=== PATIENT | male | born 1950 | race Caucasian/White ===

== ENCOUNTER 2020-07-18 20:00 | Emergency (ER) | payer MEDICARE, MEDICAID, SELFPAY ==
--- NOTE | 2020-07-18 | XR_ITS ---
EXAMINATION: XR CHEST CLINICAL INFORMATION: Question aspiration COMPARISON: Chest x-ray 01/30/[address] 01/05/2018 TECHNIQUE: Frontal view of the chest was obtained. FINDINGS: Retrocardiac opacity with blunting of the left costophrenic angle. There is good aeration of the right hemithorax. No right-sided pleural effusion. No pneumothorax bilaterally. XR/XR chest 1V IMPRESSION: Left basilar findings concerning for pleural effusion with overlying airspace disease. Clinical correlation recommended.
[2020-07-18 20:15] VITALS: BP 156/72; PULSE 82; RESP 16; TEMP 36.6; O2SAT 93; BMI 43.3
[2020-07-18 21:07] LABS: MANUAL DIFF FLAG NO
[2020-07-18 21:08] LABS: Basophils Absolute Auto 0.1 X10*3/uL (0.0-0.2); Basophils Percent Auto 1.2 % (0-2); Eosinophils Absolute Auto 0.2 X10*3/uL (0.0-0.4); Hematocrit 46.2 % (42-52); Imm Gran Abs Auto 0.03 X10*3/uL (0.00-0.03); Imm Gran Pct Auto 0.4 % (0.0-0.4); Lymphocytes Absolute Auto 1.3 X10*3/uL (1.2-4.9); Lymphocytes Percent Auto 17.4 % (20-40); Mean Corpuscular HGB Conc 32.5 g/dl (31.0-36.0); Mean Corpuscular Hemoglobin 29.3 pg (27.0-33.0); Mean Corpuscular Volume 90.2 fL (80-98); Monocytes Absolute Auto 0.8 X10*3/uL (0.1-1.2); Monocytes Percent Auto 10.6 % (2-11); Neutrophils Absolute Auto 4.9 X10*3/uL (2.0-8.3); Neutrophils Percent Auto 67.4 % (45-73); Platelet Count 260 X10*3/uL (160-400); Red Blood Count 5.12 X10*6/uL (4.60-5.80); Red Cell Distribution Width 13.8 % (11.0-16.0); White Blood Count 7.3 X10*3/uL (4.8-10.8)
[2020-07-18 21:50] LABS: Alanine Aminotransferase 29 U/L (0-40); Albumin Level 4.3 g/dL (3.5-5.0); Alkaline Phosphatase 43 U/L (39-117); Anion Gap 16 (12-20); Aspartate Amino Transferase 26 U/L (5-37); Bilirubin Total 0.4 mg/dL (0.0-1.0); Blood Urea Nitrogen 16 mg/dL (9-16); Calcium 9.9 mg/dL (8.4-10.2); Carbon Dioxide 25 mmol/L (22-29); Chloride 105 mmol/L (96-108); Creatinine Clr Calc Pharmacy 123.3; Estimated Glomerular Filt Rate > 60; Glucose Random 104 mg/dL (60-115); Potassium 4.2 mmol/l (3.3-5.1); Sodium 142 mmol/L (135-145); Total Protein 7.1 g/dL (6.5-8.0)
--- NOTE | 2020-07-18 21:53 | ED.GENADULT ---
HPI - General Adult General Chief complaint: General Medical Stated complaint: ?ASPIRATION Time Seen by Provider: 07/18/20 21:42 Source: patient and EMS Mode of arrival: EMS Limitations: other (Dementia) History of Present Illness HPI narrative: Patient is coming from [facility] for possible aspiration. According to the patient's nurse, patient was eating, he choked and started coughing violently then itself resolved. The nurse became concerned and called 911. Patient is unable to give any history. Patient states he feels well complaint: Possible aspiration Related Data Previous Rx's Medication Instructions Recorded azithromycin 250 mg PO DAILY 4 Days #4 tab 07/18/20 Allergies Allergy/AdvReac Type Severity Reaction Status Date / Time No Known Allergies Allergy Verified 07/18/20 20:20 [No Known Allergies*] Review of Systems Review of Systems: Yes Unobtainable due to mental condition PMFSH Past Medical History Medical History Asthma Behavior disorder Cataract Dementia Diabetes Dysphagia Emphysema lung ETOH abuse Gastroenteritis Hernia Hyperlipemia Social History Social History Alcohol intake: never Smoked in Last 30 Days: No Use of substances other than those prescribed or required for medical reasons: No Advance Directives: No Advance Directives Information Provided: Yes Physical Exam Vital Signs: Vital Signs: Last Vital Signs Temp 97.0 F 07/18/20 22:00 Pulse 62 07/18/20 22:00 Resp 16 07/18/20 22:00 BP 141/67 H 07/18/20 22:00 Pulse Ox 93 07/18/20 22:00 Body Mass Index 43.3 Appearance: Alert. No acute distress Eyes: Pupils equal, round and reactive to light. ENT: Pharynx normal. Neck: Normal inspection. Neck supple. No lymph nodes noted. No crepitus CVS: Normal heart rate and rhythm. Pulses normal. Normal S1 and S2 Respiratory: No respiratory distress. Breath sounds normal. No Wheezing. No rales Abdomen: Soft and nontender. No rigidity. No distention. good BS x4 Skin: Skin warm and dry. Normal skin color. Normal skin turgor. Extremities: No lower extremity edema. No lower extremity edema. No Lacerations. No Rash Neuro: No motor deficit. Moving all extermities. Cranial nerves 2-12 grossly intact Course Course Course Narrative: It was discussed with the patient's nurse at [facility] that it is possible that he may have aspirated. At this time patient has no signs of distress. Patient will be treated empirically for aspiration pneumonia Medical Decision Making Lab Data Result diagrams: 07/18/20 21:00 07/18/20 21:00 Labs: Lab Results 07/18/20 07/18/20 Range/Units 21:00 21:00 WBC 7.3 (4.8-10.8) X10*3/uL RBC 5.12 (4.60-5.80) X10*6/uL Hgb 15.0 (14.0-18.0) g/dl Hct 46.2 (42-52) % MCV 90.2 (80-98) fL MCH 29.3 (27.0-33.0) pg MCHC 32.5 (31.0-36.0) g/dl RDW 13.8 (11.0-16.0) % Plt Count 260 (160-400) X10*3/uL MPV 10.0 (9.4-12.4) fL Immature Gran % (Auto) 0.4 (0.0-0.4) % Neut % (Auto) 67.4 (45-73) % Lymph % (Auto) 17.4 L (20-40) % Ware % (Auto) 10.6 (2-11) % Eos % (Auto) 3.0 (0-4) % Baso % (Auto) 1.2 (0-2) % Lymph # (Auto) 1.3 (1.2-4.9) X10*3/uL Ware # (Auto) 0.8 (0.1-1.2) X10*3/uL Eos # (Auto) 0.2 (0.0-0.4) X10*3/uL Baso # (Auto) 0.1 (0.0-0.2) X10*3/uL Abs Immat Gran (auto) 0.03 (0.00-0.03) X10*3/uL Absolute Neuts (auto) 4.9 (2.0-8.3) X10*3/uL Absolute Nucleated RBC 0.000 (0.0-0.012) X10*3/uL Nucleated RBC % (auto) 0.0 (0.0-0.2) /100WBC Sodium 142 (135-145) mmol/L Potassium 4.2 (3.3-5.1) mmol/l Chloride 105 (96-108) mmol/L Carbon Dioxide 25 (22-29) mmol/L Anion Gap 16 (12-20) BUN 16 (9-16) mg/dL Creatinine 0.86 (0.5-1.4) mg/dL Estim Creat Clear Calc 123.3 Estimated GFR > 60 Random Glucose 104 (60-115) mg/dL Calcium 9.9 (8.4-10.2) mg/dL Total Bilirubin 0.4 (0.0-1.0) mg/dL AST 26 (5-37) U/L ALT 29 (0-40) U/L Alkaline Phosphatase 43 (39-117) U/L Total Protein 7.1 (6.5-8.0) g/dL Albumin 4.3 (3.5-5.0) g/dL Discharge Plan Discharge Clinical Impression: Aspiration pneumonia Qualifiers: Aspiration pneumonia type: unspecified Laterality: unspecified laterality Lung location: unspecified part of lung Qualified Code(s): J69.0 - Pneumonitis due to inhalation of food and vomit Patient Disposition: Home, Self-Care Instructions: Aspiration Pneumonia (DC) Additional Instructions: Please follow-up with your primary care physician tomorrow. If you have any worsening or new symptoms, please return to the emergency room or call 911 Prescriptions: New azithromycin 250 mg tablet 250 mg PO DAILY 4 Days Qty: 4 RF: 0
[2020-07-18 22:00] VITALS: BP 141/67; PULSE 62; RESP 16; TEMP 36.1; O2SAT 93
--- NOTE | 2020-07-18 22:21 | PC.NURSE ---
Report given to [facility] nurse. plan to d/c.
[2020-07-18] MEDS: Azithromycin 500 MG TABLET PO (22:49)
[2020-07-19 00:40] VITALS: BP 134/56; PULSE 60; RESP 18; O2SAT 100
== END 2020-07-19 00:42 | disposition home or self-care (01) ==
PROVIDERS: Emergency Provider Emergency Medicine; PCP Hospitalist
DX: J69.0 Pneumonitis due to inhalation of food and vomit (principal)
CPT/HCPCS: 36415; 71045; 80053; 85025; 99283; 99284

== ENCOUNTER 2020-07-25 19:37 | Emergency (ER) | payer MEDICARE, MEDICAID, SELFPAY ==
[2020-07-25 19:50] VITALS: BP 142/72; PULSE 79; RESP 18; TEMP 36.9; O2SAT 90; BMI 31.4
--- NOTE | 2020-07-25 20:03 | ED_ITS ---
HPI - General Adult General Chief complaint: General Medical Stated complaint: OXYGEN DESATURATION Time Seen by Provider: 07/25/20 21:25 Source: EMS Mode of arrival: EMS Limitations: altered mental status ( dementia) History of Present Illness HPI narrative: 70-year-old male With past medical history of COPD, emphysema, asthma, unspecified psychiatric condition, hyperlipidemia, coronary artery disease, anxiety, urinary incontinence, dysphagia, dementia with behavioral disturbance, type 2 diabetes, and aspiration pneumonia presents from a [place] [facility] facility for oxygen saturation of 90%. he was seen on July 18 for aspiration pneumonia. At this time he is not complaining of any chest pain or pressure, palpitations, shortness of breath, abdominal pain, abdominal distention, fevers or chills. He is not forthcoming with information, most of this information was obtained by [facility] report. Onset (ago): unknown Location: chest Severity: mild Associated symptoms: denies other symptoms Related Data Previous Rx's Medication Instructions Recorded azithromycin 250 mg PO DAILY 4 Days #4 tab 07/18/20 levofloxacin 750 mg PO Q24H 7 Days #7 tab 07/25/20 Allergies Allergy/AdvReac Type Severity Reaction Status Date / Time No Known Allergies Allergy Verified 07/18/20 20:20 [No Known Allergies*] Review of Systems Review of Systems: ROS unable to be obtained due to altered mental status Yes Unobtainable due to mental status ( Patient has dementia per baseline) [facility] Past Medical History Source: unable to obtain, old records reviewed and nursing notes reviewed Medical History Asthma Behavior disorder Cataract Dementia Diabetes Dysphagia Emphysema lung ETOH abuse Gastroenteritis Hernia Hyperlipemia Social History Social History Alcohol intake: never Smoking Status: Current every day smoker Use of substances other than those prescribed or required for medical reasons: No Advance Directives: No Advance Directives Information Provided: No Physical Exam Vital Signs: Vital Signs: Last Vital Signs Temp 97.6 F 07/25/20 23:18 Pulse 75 07/25/20 23:18 Resp 18 07/25/20 23:18 BP 178/92 H 07/25/20 23:18 Pulse Ox 92 07/25/20 23:18 Body Mass Index 31.4 Appearance: Alert. Oriented X3. No acute distress. Eyes: Pupils equal, round and reactive to light. ENT: Pharynx normal. Neck: Normal inspection. Neck supple. CVS: Normal heart rate and rhythm. Pulses normal. Respiratory: No respiratory distress. Breath sounds normal. Abdomen: Soft and nontender. Skin: Skin warm and dry. Normal skin color. Normal skin turgor. Extremities: No lower extremity edema. Neuro: No motor deficit. No sensory deficit. Course Course Course Narrative: 70-year-old male presents with O2 saturation of 90%. He was seen July 18 for aspiration pneumonia. Patient is unable to answer questions, and is a high risk for recurrent aspiration secondary to dysphagia. We will order CBC, Chem 7, and CT scan of the chest. CT scan of the chest shows infiltrates, left pleural effusion, and possible left lower lobe mass. This case was discussed with Dr. De La Torre as well as hospitalist Dr. Kuhn. Patient does live in a [place] [facility] facility, labs are unremarkable, Medical Decision Making Medical Records Medical records reviewed: Yes I reviewed the patient's medical records. Lab Data Lab results reviewed: Yes I reviewed the patient's lab results. Result diagrams: 07/25/20 20:43 07/25/20 20:43 Labs: Lab Results 07/25/20 07/25/20 07/25/20 Range/Units 20:43 20:43 20:43 WBC 6.6 (4.8-10.8) X10*3/uL RBC 5.07 (4.60-5.80) X10*6/uL Hgb 14.7 (14.0-18.0) g/dl Hct 45.7 (42-52) % MCV 90.1 (80-98) fL MCH 29.0 (27.0-33.0) pg MCHC 32.2 (31.0-36.0) g/dl RDW 13.9 (11.0-16.0) % Plt Count 278 (160-400) X10*3/uL MPV 9.6 (9.4-12.4) fL Immature Gran % (Auto) 0.3 (0.0-0.4) % Neut % (Auto) 63.3 (45-73) % Lymph % (Auto) 23.5 (20-40) % Ray % (Auto) 9.7 (2-11) % Eos % (Auto) 2.1 (0-4) % Baso % (Auto) 1.1 (0-2) % Lymph # (Auto) 1.6 (1.2-4.9) X10*3/uL Ray # (Auto) 0.6 (0.1-1.2) X10*3/uL Eos # (Auto) 0.1 (0.0-0.4) X10*3/uL Baso # (Auto) 0.1 (0.0-0.2) X10*3/uL Abs Immat Gran (auto) 0.02 (0.00-0.03) X10*3/uL Absolute Neuts (auto) 4.2 (2.0-8.3) X10*3/uL Absolute Nucleated RBC 0.000 (0.0-0.012) X10*3/uL Nucleated RBC % (auto) 0.0 (0.0-0.2) /100WBC Sodium 144 (135-145) mmol/L Potassium 3.6 (3.3-5.1) mmol/l Chloride 106 (96-108) mmol/L Carbon Dioxide 28 (22-29) mmol/L Anion Gap 14 (12-20) BUN 12 (9-16) mg/dL Creatinine 0.82 (0.5-1.4) mg/dL Estim Creat Clear Calc 115.8 Estimated GFR > 60 Random Glucose 104 (60-115) mg/dL Lactic Acid 1.7 (0.5-2.0) mmol/L Calcium 9.9 (8.4-10.2) mg/dL Magnesium (1.6-2.6) mg/dL Troponin I High Sens (<3.5-35.0) ng/L 07/25/20 07/25/20 07/25/20 Range/Units 20:43 20:43 23:38 WBC (4.8-10.8) X10*3/uL RBC (4.60-5.80) X10*6/uL Hgb (14.0-18.0) g/dl Hct (42-52) % MCV (80-98) fL MCH (27.0-33.0) pg MCHC (31.0-36.0) g/dl RDW (11.0-16.0) % Plt Count (160-400) X10*3/uL MPV (9.4-12.4) fL Immature Gran % (Auto) (0.0-0.4) % Neut % (Auto) (45-73) % Lymph % (Auto) (20-40) % Ray % (Auto) (2-11) % Eos % (Auto) (0-4) % Baso % (Auto) (0-2) % Lymph # (Auto) (1.2-4.9) X10*3/uL Ray # (Auto) (0.1-1.2) X10*3/uL Eos # (Auto) (0.0-0.4) X10*3/uL Baso # (Auto) (0.0-0.2) X10*3/uL Abs Immat Gran (auto) (0.00-0.03) X10*3/uL Absolute Neuts (auto) (2.0-8.3) X10*3/uL Absolute Nucleated RBC (0.0-0.012) X10*3/uL Nucleated RBC % (auto) (0.0-0.2) /100WBC Sodium (135-145) mmol/L Potassium (3.3-5.1) mmol/l Chloride (96-108) mmol/L Carbon Dioxide (22-29) mmol/L Anion Gap (12-20) BUN (9-16) mg/dL Creatinine (0.5-1.4) mg/dL Estim Creat Clear Calc Estimated GFR Random Glucose (60-115) mg/dL Lactic Acid (0.5-2.0) mmol/L Calcium (8.4-10.2) mg/dL Magnesium 2.2 (1.6-2.6) mg/dL Troponin I High Sens 9.1 8.4 (<3.5-35.0) ng/L Imaging Data CT scan - chest: Attestation: I personally reviewed and interpreted this imaging study as follows: Radiologist's impression: EXAMINATION: CT CHEST WITHOUT CONTRAST CLINICAL INFORMATION: Recent aspiration pneumonia. COMPARISON: Chest radiograph 07/18/[address] chest 01/05/2018. TECHNIQUE: Multidetector volumetric CT imaging of the chest was done. Axial MIP volume rendering provided. Sagittal and coronal reformatted images were obtained. This CT examination was performed using dose optimization techniques as appropriate, variously including the following: *Automated exposure control. *Adjustment of mA and/or kV according to patient size (this includes techniques or standardized protocols for targeted exams where dose is matched to indication/reason for exam; i.e. extremities or head). *Use of iterative reconstruction technique. DLP: 383 mGy-cm FINDINGS: LUNGS AND PLEURA: A large left pleural effusion is present with associated collapse of the left lower lobe. A rounded mass lesion seen medially and posteriorly measuring about 8 x 5.3 cm cannot be entirely excluded. It is conceivable that this could represent pneumonia related to aspiration. There is a thickened mass-like area present along the major fissure on the left which appears increased in size since the 2018 study where this previously measured about 2 cm in width and now measures just under 3 cm in width, best appreciated on coronal imaging (series 6 image 60). Background emphysematous changes are present. Peripheral bullae seen increased since 2018. Previously seen small pulmonary nodules are difficult to evaluate on the current study secondary to marked motion artifact, but there is nothing to suggest that these have significantly increased in size. MEDIASTINUM: No mediastinal or hilar lymphadenopathy. AXILLA: No lymphadenopathy. UPPER ABDOMEN: A hiatal hernia is present. OSSEOUS STRUCTURES: Unremarkable. CT/CT chest wo con IMPRESSION: New large left pleural effusion with rounded left lower lobe mass either representing a rounded area of infiltrate or possibly an underlying mass. Increased band-like thickening along major fissure. Follow up after treatment is recommended. If patient is symptomatic, a thoracentesis may be beneficial. I would highly recommend that the next follow up CT scan of the chest be performed with IV contrast. ECG Data Attestation: I personally reviewed and interpreted this ECG as follows: Prior ECG tracings: not available for review Interpretation: ventricular rate 68 beats per minute, p.r. interval 200, QTC 404, QTC 429, normal sinus rhythm, normal EKG, no ST elevation or depression indicating ischemia. Prior EKGs are unavailable due to system error. Discharge Plan Discharge Clinical Impression: Pleural effusion on left, Mass of lower lobe of lung Patient Disposition: Home, Self-Care Instructions: Pleural Effusion (ED), Pneumonia (ED) Additional Instructions: you were evaluated for low oxygenation rate. CT scan of the chest shows a left pleural effusion with a rounded left lower lobe mass either representing a rounded area of infiltrate or possibly underlying mass. We are going to treat you with Levaquin 750 mg for the next 7 days. Once you complete the antibiotics you should have a CT scan with contrast of the chest. Thank you for choosing this emergency department for evaluation. Please follow-up with primary care physician as needed. Return to the emergency department for any new, concerning, or worsening symptoms. Prescriptions: New levofloxacin 750 mg tablet 750 mg PO Q24H 7 Days Qty: 7 RF: 0 No Action azithromycin 250 mg tablet 250 mg PO DAILY 4 Days Qty: 4 RF: 0
--- NOTE | 2020-07-25 20:04 | ECG_ITS ---
Test Reason : WEAKNESS Blood Pressure : / mmHG Vent. Rate : 068 BPM Atrial Rate : 068 BPM P-R Int : 200 ms QRS Dur : 094 ms QT Int : 404 ms P-R-T Axes : 028 032 062 degrees QTc Int : 429 ms Normal sinus rhythm Normal ECG When compared with ECG of 30-JAN-2020 19:46, No significant changes seen Referred By: Coty Colon Electronically Signed By:DAVIS NORIEGA MD
[2020-07-25 20:52] LABS: Basophils Absolute Auto 0.1 X10*3/uL (0.0-0.2); Basophils Percent Auto 1.1 % (0-2); Eosinophils Absolute Auto 0.1 X10*3/uL (0.0-0.4); Eosinophils Percent Auto 2.1 % (0-4); Hematocrit 45.7 % (42-52); Hemoglobin 14.7 g/dl (14.0-18.0); Imm Gran Abs Auto 0.02 X10*3/uL (0.00-0.03); Imm Gran Pct Auto 0.3 % (0.0-0.4); Lymphocytes Absolute Auto 1.6 X10*3/uL (1.2-4.9); Lymphocytes Percent Auto 23.5 % (20-40); Mean Corpuscular HGB Conc 32.2 g/dl (31.0-36.0); Mean Corpuscular Volume 90.1 fL (80-98); Mean Platelet Volume 9.6 fL (9.4-12.4); Monocytes Absolute Auto 0.6 X10*3/uL (0.1-1.2); Monocytes Percent Auto 9.7 % (2-11); Neutrophils Absolute Auto 4.2 X10*3/uL (2.0-8.3); Neutrophils Percent Auto 63.3 % (45-73); Platelet Count 278 X10*3/uL (160-400); Red Blood Count 5.07 X10*6/uL (4.60-5.80); Red Cell Distribution Width 13.9 % (11.0-16.0); White Blood Count 6.6 X10*3/uL (4.8-10.8)
[2020-07-25 20:54] LABS: MANUAL DIFF FLAG NO
[2020-07-25 21:21] LABS: Lactic Acid 1.7 mmol/L (0.5-2.0)
[2020-07-25 21:25] VITALS: BP 176/87; PULSE 74; RESP 20; TEMP 36.6; O2SAT 91
[2020-07-25 21:25] LABS: Anion Gap 14 (12-20); Blood Urea Nitrogen 12 mg/dL (9-16); Calcium 9.9 mg/dL (8.4-10.2); Carbon Dioxide 28 mmol/L (22-29); Chloride 106 mmol/L (96-108); Creatinine Clr Calc Pharmacy 115.8; Estimated Glomerular Filt Rate > 60; Glucose Random 104 mg/dL (60-115); Potassium 3.6 mmol/l (3.3-5.1); Sodium 144 mmol/L (135-145)
[2020-07-25 21:26] LABS: Magnesium 2.2 mg/dL (1.6-2.6)
[2020-07-25 21:32] LABS: Troponin-I High Sensitivity 9.1 ng/L (<3.5-35.0)
[2020-07-25] MEDS: Piperacillin Sodium/Tazobactam 3.375 GM in 0.9 % Sodium Chloride 50 ML IV (22:30)
[2020-07-25] MEDS: 0.9 % Sodium Chloride 1,000 ML 999 ML IVCONT (22:31)
[2020-07-25 23:18] VITALS: BP 178/92; PULSE 75; RESP 18; TEMP 36.4; O2SAT 92
--- NOTE | 2020-07-25 23:32 | PC.NURSE ---
pt needs a repeat tropin and is being done at this time, no discharge at this time till labs returns
[2020-07-26 00:13] LABS: Troponin-I High Sensitivity 8.4 ng/L (<3.5-35.0)
== END 2020-07-26 00:53 | disposition home or self-care (01) ==
PROVIDERS: Nurse Practitioner Family; Emergency Provider Emergency Medicine
DX: J90 Pleural effusion, not elsewhere classified (principal); R91.8 Other nonspecific abnormal finding of lung field; I25.10 Atherosclerotic heart disease of native coronary artery without angina pectoris; J44.9 Chronic obstructive pulmonary disease, unspecified; E11.9 Type 2 diabetes mellitus without complications; F17.200 Nicotine dependence, unspecified, uncomplicated; Z71.6 Tobacco abuse counseling; Z79.899 Other long term (current) drug therapy
CPT/HCPCS: 36415; 71250; 80048; 83605; 83735; 84484; 85025; 87040; 93005; 96365; 99284; J2543

== ENCOUNTER 2020-08-10 13:44 | Outpatient (REF) | payer MEDICARE, MEDICAID, SELFPAY ==
--- NOTE | 2020-08-10 13:46 | CT_ITS ---
EXAMINATION: CT CHEST WITH CONTRAST CLINICAL INFORMATION: Pleural effusions. COMPARISON: Multiple prior studies. Most recent exam CT chest 07/25/2020 TECHNIQUE: Multidetector volumetric CT imaging of the chest was obtained after the administration of 65 mL of Omnipaque 350 intravenous contrast without immediate adverse reactions. Axial MIP volume rendering provided. Sagittal and coronal reformatted images were obtained. This CT examination was performed using dose optimization techniques as appropriate, variously including the following: *Automated exposure control *Adjustment of mA and/or kV according to patient size (this includes techniques or standardized protocols for targeted exams where dose is matched to indication/reason for exam; i.e. extremities or head) *Use of iterative reconstruction technique DLP: 295 mGy-cm FINDINGS: LUNGS: There is marked emphysematous change of lungs. There is compressive atelectasis/consolidation at the dependent left lung base is similar in severity to the CAT scan 07/25/2020. There is persistent thickening in the perihilar area of the left major fissure region. This has been present on numerous CAT scans back through CT chest 04/28/2015. This has not changed substantially since prior studies. Right lung remains normally aerated. Previously noted lung nodules have not changed substantially since prior exams, for instance a 3 mm nodule in the right lung peripherally axial image 38 series 4. No new and no suspicious lung nodules. MEDIASTINUM: There is a moderate-sized hiatal hernia. Heart size is normal. No pericardial effusion. No significant lymphadenopathy. There is moderate volume of coronary artery calcifications. There are calcifications of thoracic aorta and origin of great vessels. PLEURA: There is a large volume left pleural effusion volume of effusion is similar to prior CAT scan of 07/25/2020. AXILLA: No lymphadenopathy. UPPER ABDOMEN: Mild low-attenuation of liver parenchyma due to fatty change. Gallbladder is contracted. Visualized portions of the spleen, kidneys, pancreas and adrenal glands are unremarkable. OSSEOUS STRUCTURES: Multilevel degenerative spondylosis of spine. CT/CT chest w con IMPRESSION: No substantial change since prior CAT scan 07/25/2020. There is continued large volume left pleural effusion with consolidation/atelectasis at the left lung base. There is persistent soft tissue density around the area of the major fissure which remains unchanged since 2014. There is marked emphysematous change of lungs. Stable small subcentimeter lung nodules.
[2020-08-10] MEDS: iohexoL 350 MG/ML 100 ML INFUS..BTL 65 ML IV (15:03)
== END 2020-08-10 13:45 | disposition home or self-care (01) ==
LOC: HO.CT 13:44
PROVIDERS: PCP Hospitalist; Visit Provider Hospitalist
DX: Z00.00 Encounter for general adult medical examination without abnormal findings (principal); J90 Pleural effusion, not elsewhere classified
CPT/HCPCS: 71260; Q9967

== ENCOUNTER 2020-11-28 11:15 | Outpatient (REF) | payer MEDICARE, MEDICAID, SELFPAY ==
--- NOTE | ~2020-11-28 | CT_ITS ---
EXAMINATION: CT CHEST WITHOUT CONTRAST CLINICAL INFORMATION: Lung nodules COMPARISON: Previous chest CT scans most recent July and August 2020 TECHNIQUE: Multidetector volumetric CT imaging of the chest was done. Axial MIP volume rendering provided. Sagittal and coronal reformatted images were obtained. Exam is limited due to artifact from respiratory motion. This CT examination was performed using dose optimization techniques as appropriate, variously including the following: *Automated exposure control *Adjustment of mA and/or kV according to patient size (this includes techniques or standardized protocols for targeted exams where dose is matched to indication/reason for exam; i.e. extremities or head) *Use of iterative reconstruction technique DLP: 180 mGy-cm FINDINGS: LUNGS: There is emphysema. There is volume loss to the left upper lobe. There is an abnormal parenchymal density seen in the left upper lobe. This is decreased in size from August 2020 exam. This is similar to older exam from December 2017 This has a whirled central bronchovascular appearance and may represent round atelectasis. There is atelectasis or scarring seen in the medial left lower lobe adjacent to the descending thoracic aorta. The previously identified left hilar density is no longer seen. There is a new 2 x 4 mm right middle lobe nodule axial image 355 series 7. The lungs are otherwise clear. MEDIASTINUM: The heart is upper normal in size. There is a small pericardial effusion. There is coronary artery calcification. The proximal descending thoracic aorta or distal aortic arch is minimally dilated measuring 3 x 3.5 cm. The remaining thoracic aorta is normal in caliber. There are no enlarged hilar or mediastinal lymph nodes. The visualized thyroid gland is unremarkable. There may be a small hiatal hernia. PLEURA: There is a small residual left pleural effusion or pleural thickening. The pleural effusion seen on August 2020 exam appears significantly increased. There is no right pleural effusion. AXILLA: No lymphadenopathy. UPPER ABDOMEN: Unremarkable. OSSEOUS STRUCTURES: There are degenerative changes of the spine. CT/CT chest wo con IMPRESSION: Emphysema. Interval decrease in left pleural effusion. Stable loss to the left upper lobe. Interval decrease in left upper lobe abnormal parenchymal density from July and August 2020. This is similar in appearance to older exam from December 2017 and may represent round atelectasis. Interval decrease in left hilar density. New atelectasis in the medial left lower lobe. New small 2 x 4 mm right lower lobe pulmonary nodule.
== END 2020-11-28 11:16 | disposition home or self-care (01) ==
LOC: HO.CT 11:15
PROVIDERS: PCP Hospitalist; Visit Provider Hospitalist
DX: Z85.118 Personal history of other malignant neoplasm of bronchus and lung (principal)
CPT/HCPCS: 71250

== ENCOUNTER 2021-05-11 12:53 | Outpatient (REF) | payer MEDICARE, MEDICAID, SELFPAY | END 2021-05-11 12:54 | disposition home or self-care (01) | LOC: HO.CT 12:53 | PROVIDERS: PCP Hospitalist; Visit Provider Hospitalist | DX: Z13.89 Encounter for screening for other disorder (principal) ==

== ENCOUNTER 2021-06-06 09:15 | Outpatient (REF) | payer MEDICARE, MEDICAID, SELFPAY ==
--- NOTE | ~2021-06-06 | CT_ITS ---
EXAMINATION: CT CHEST WITHOUT CONTRAST CLINICAL INFORMATION: Follow-up pulmonary nodule COMPARISON: Previous chest CT scans most recent October 2020 TECHNIQUE: Multidetector volumetric CT imaging of the chest was done. Axial MIP volume rendering provided. Sagittal and coronal reformatted images were obtained. This CT examination was performed using dose optimization techniques as appropriate, variously including the following: *Automated exposure control *Adjustment of mA and/or kV according to patient size (this includes techniques or standardized protocols for targeted exams where dose is matched to indication/reason for exam; i.e. extremities or head) *Use of iterative reconstruction technique DLP: 180 mGy-cm FINDINGS: LUNGS: There is evidence of emphysema. There is left upper lobe volume loss. There is an abnormal parenchymal density seen in the left upper lobe. This has a whirled central bronchovascular appearance and may represent round atelectasis or scarring. This does not appear appreciably changed from most recent exam October 2020. There is a new masslike density in the central left lower lobe abutting the anterior descending thoracic aorta and left side of the distal thoracic esophagus. This measures 5 x 6 cm axial image 45 series 3. There were air bronchograms seen in this region on previous exam. There is a new 1 cm left lower lobe nodule axial image 55 series 3. There is a 4 mm right middle lobe nodule axial image 41 series 3 that is stable. MEDIASTINUM: The heart is enlarged. There is coronary artery calcification. There is a small pericardial effusion. There is a new prominent 1.6 cm posterior mediastinal lymph node axial image 46 series 3. PLEURA: There is a small left pleural effusion or pleural thickening that is stable. There is question of a small left extrapleural lymph node measuring 5 mm axial image 55 series 3. There is no right pleural effusion or pleural thickening. AXILLA: No lymphadenopathy. UPPER ABDOMEN: Unremarkable. OSSEOUS STRUCTURES: There are degenerative changes of the spine. CT/CT chest wo con IMPRESSION: Emphysema. New 5 x 6 cm masslike density in the medial left lower lobe, new 1 cm left lower lobe nodule and new slightly enlarged posterior mediastinal lymph node. If there is clinical suspicion of infection, short-term chest CT following antibiotic therapy in several weeks would be recommended. If there are no symptoms to suggest infection at this time for radiographic abnormality fails to resolve, malignancy should be excluded and PET/CT and or tissue sampling should be considered. Stable abnormal parenchymal density in the left upper lobe, question representing round atelectasis or scarring. Stable small left pleural effusion or pleural thickening.
== END 2021-06-06 09:16 | disposition home or self-care (01) ==
LOC: HO.CT 09:15
PROVIDERS: Visit Provider Hospitalist
DX: R91.8 Other nonspecific abnormal finding of lung field (principal)
CPT/HCPCS: 71250

== ENCOUNTER 2021-07-28 10:03 | Emergency (ER) | payer MEDICARE, MEDICAID, SELFPAY ==
[2021-07-28] VITALS (10 sets, daily range): BP systolic 78–115; BP diastolic 43–58; PULSE 62–86; RESP 14–16; TEMP 36.6–36.9; O2SAT 90–95; BMI 29.0
--- NOTE | ~2021-07-28 | CT_ITS ---
EXAMINATION: CT HEAD WITHOUT CONTRAST. CT CHEST, ABDOMEN AND PELVIS WITHOUT CONTRAST. CLINICAL INFORMATION: AMS. COMPARISON: CT chest 06/06/2021. TECHNIQUE: 5 mm thin axial and reformatted 2 mm thin sagittal and coronal images of brain were obtained. Subsequently 5 mm thin axial and reformatted 3 mm thin sagittal coronal images of abdomen pelvis were obtained. DLP [id number] FINDINGS: BRAIN: There is no acute intra-axial, extra-axial bleed, masses or midline shift. There is no acute infarction evolution. There is no edema. The lateral ventricles are symmetrical in size but enlarged. There is mild periventricular hypodensity in both cerebral hemispheres. Bone windows reveal no calvarial abnormality. No scalp soft tissue abnormality. Bilateral paranasal sinuses and mastoid air cells are well-aerated. CHEST: There is mild emphysematous changes of both lungs predominantly in the upper lobe. There is right basilar atelectatic changes. 1 cm right middle lobe pulmonary nodule is stable.. There is loss of left lung volume with mild ipsilateral mediastinal shift. There is a whirled appearance in the left upper lobe similar plaques 2 exams likely representing persistent or atelectasis with mild bullous changes lateral to it. There is a large mass in the left lower lobe adjacent to the descending thoracic aorta which is significantly increased in size and measures 8.5 x 4.6 cm. Previously it measured 5 cm x 6 cm and most likely represents a mass. Previously seen 1 cm nodule in the left CP angle is now being masked with left pleural effusion and underlying left lower lobe atelectasis. There is now small to moderate left pleural effusion increased significantly since the previous study. No pleural calcification seen. Heart size is normal. There is arthroscopic calcification of thoracic arch and the coronary arteries. There is a small pericardial effusion. There is mild mural thickening involving the distal esophagus with nonvisualization of esophageal lumen. There are abnormal subcarinal 1.0 x 1.7 cm lymph node axial image /. On last CT exam it measured 1.3 x 0.9 cm. The thyroid lobes are symmetrical. The central trachea and bronchi widely patent. There are small shotty lymph nodes in the axilla. The chest wall appears unremarkable. Abdomen and pelvis: The liver is normal size, contour and shape. No focal lesion or intrahepatic ductal dilatation seen. The gallbladder is unremarkable. Visualized spleen, pancreas and bilateral adrenal glands are unremarkable. Both kidneys are normal size, shape and density. No radiopaque calculi or hydronephrosis. There is scattered moderate stool seen in the colon without any significant distention. The small bowel loops are normal caliber. The stomach is distended with recently ingested food. Appendix is normal caliber. No free air or free fluid. The abdominal aorta is atherosclerotic and calcified without dilation. No abnormal size retroperitoneal lymph nodes seen. The abdominal wall appears unremarkable. Imaging to the pelvis reveals sigmoid, colon diverticulosis without diverticulitis. The urinary bladder is nondistended. The prostate gland is mildly enlarged. Bone windows reveal vacuum disc phenomena and degenerative disc changes L4-L5 and L5-S1 disc level. No aggressive lytic or sclerotic process seen. There is mild spondylosis mid dorsal spine CT/CT abdomen pelvis wo con IMPRESSION: Previously visualized left lower lobe mass adjacent to the thoracic aorta has increased in size. This could be enlarged lymph node or a parenchymal mass. Previously visualized diffuse mural thickening involving esophagus is again visualized with loss of esophageal lumen at this time. This could be a primary esophageal or a primary left lower lobe lung mass. Recommend endoscopy, ultrasound-guided pleural tap or CT-guided biopsy for cytology. Left CP angle 1 cm nodule seen previously has been mass Y left lower lobe atelectasis and [id number] left pleural effusion. Left upper lobe Whirled appearance likely round atelectasis is stable. There is a right basilar compressive atelectasis. Stable 1 cm right middle lobe pulmonary nodule Subcarinal lymph node has increased in size Colonic diverticulosis with mild constipation. No obstruction. No abnormal lymph nodes seen. No acute intracranial process seen. Age-related cerebral volume loss with chronic small vessel ischemic changes.
--- NOTE | 2021-07-28 10:13 | ECG_ITS ---
Test Reason : ALTERED MENTAL Blood Pressure : / mmHG Vent. Rate : 080 BPM Atrial Rate : 080 BPM P-R Int : 174 ms QRS Dur : 084 ms QT Int : 396 ms P-R-T Axes : 087 054 047 degrees QTc Int : 456 ms Sinus rhythm with Premature atrial complexes RSR' or QR pattern in V1 suggests right ventricular conduction delay Abnormal ECG When compared with ECG of 25-JUL-2020 20:19, Premature atrial complexes are now Present Referred By: Debbie Garcia Electronically Signed By:DAVIS NORIEGA MD
[2021-07-28 10:24] LABS: Glucose, Whole Blood 107 mg/dL (60-115)
--- NOTE | 2021-07-28 10:47 | ED_ITS ---
HPI - Altered Mental Status General Chief Complaint: Altered Mental Status Stated Complaint: ams/hypotensive Time Seen by Provider: 07/28/21 10:13 Source: EMS and old records reviewed Mode of arrival: EMS Limitations: altered mental status History of Present Illness MD complaint: altered mental status, decreased responsiveness and weakness Onset (ago): hour(s) (1) Timing confirmed by: caregiver Severity: severe Consistency of symptoms: constant Context: other (dementia) Associated symptoms: denies other symptoms Related Data Home Medications Medication Instructions Recorded Confirmed divalproex 125 mg capsule,delayed 3 cap PO TID 07/28/21 07/28/21 release sprinkle fenofibrate nanocrystallized 145 1 tab PO DAILY 07/28/21 07/28/21 mg tablet lactulose 10 gram/15 mL oral 30 ml PO TID 07/28/21 07/28/21 solution nicotine 7 mg/24 hr daily 1 patch TRANSDERMAL Q24H 07/28/21 07/28/21 transdermal patch risperidone 1 mg tablet 1 tab PO BEDTIME 07/28/21 07/28/21 Allergies Allergy/AdvReac Type Severity Reaction Status Date / Time No Known Allergies Allergy Verified 07/18/20 20:20 [No Known Allergies*] Review of Systems Review of Systems: ROS unable to be obtained due to altered mental status PMFSH Past Medical History Source: old records reviewed Medical History Asthma Behavior disorder Cataract Dementia Diabetes Dysphagia Emphysema lung ETOH abuse Gastroenteritis Hernia Hyperlipemia Social History Social History (Updated 07/28/21 @ 10:54 by Debbie Garcia DO) Alcohol intake: never Patient Tobacco Use Status: Tobacco use Unknown Advance Directives: No Advance Directives Information Provided: No Physical Exam Vital Signs: Vital Signs: Last Vital Signs Temp 98.4 F 07/28/21 11:51 Pulse 72 07/28/21 13:09 Resp 14 07/28/21 13:09 BP 97/52 L 07/28/21 13:09 Pulse Ox 91 L 07/28/21 13:09 Body Mass Index 29.0 Appearance: Somnolent woken to voice and tactile stimuli can say his name. Mild acute distress. Eyes: Pupils equal, round and reactive to light. ENT: Pharynx normal. Neck: Normal inspection. Neck supple. CVS: Normal heart rate and rhythm. Pulses normal. Respiratory: No respiratory distress. Breath sounds normal. Abdomen: Soft and no grimace to palpation Skin: Skin warm and dry. pale skin color. Normal skin turgor. Extremities: No lower extremity edema. No calf ttp Neuro: moves all extremities but diffusely weak, can say his name, opens his mouth but otherwise will not participate Course Course Course Narrative: CO normal pH normal fentanyl positive but could be false positive from risperidone will try additional 1mg narcan to see no response to narcan suspect false positive workup negative aware of lung mass - no treatments per Dr. Silva, Richardson is coming around at this time seems to be getting better, anticipate DC back to facility - Dr. Silva has been by to see him and states he seems improved and returning to his baseline. still sleepy but much more easily woken to voice and said yeah with a grunt which is improved - BP 108/[address] Silva okay to send back discussed mentation and BP MDM - Altered Mental Status MDM Narrative Medical decision making narrative: 71 yo male from [facility] hx of dementia, COPD, emphysema, asthma, behavioral issues, HLD, CAD, dysphagia, aspiration pneumonia was reportedly eating today then became diffusely weak and his BP was low per SNF - EMS was called they state he can usually converse a little and is more awake. At this time labs, UA, CT head/chest/abdomen ordered to look for ICH/infection. IVF x 2L ordered. Undifferentiated at this time. Lab Data Result diagrams: 07/28/21 11:05 07/28/21 11:05 Labs: Lab Results 07/28/21 07/28/21 07/28/21 Range/Units 10:12 11:05 11:05 WBC 6.8 (4.8-10.8) X10*3/uL RBC 4.00 L (4.60-5.80) X10*6/uL Hgb 11.5 L (14.0-18.0) g/dl Hct 35.5 L (42.0-52.0) % MCV 88.8 (80.0-98.0) fL MCH 28.8 (27.0-33.0) pg MCHC 32.4 (31.0-36.0) g/dl RDW 13.8 (11.0-16.0) % Plt Count 276 (160-400) X10*3/uL MPV 9.4 (9.4-12.4) fL Immature Gran % (Auto) 0.3 (0.0-0.4) % Neut % (Auto) 62.9 (45-73) % Lymph % (Auto) 21.7 (20-40) % [place] % (Auto) 10.7 (2-11) % Eos % (Auto) 3.8 (0-4) % Baso % (Auto) 0.6 (0-2) % Lymph # (Auto) 1.5 (1.2-4.9) X10*3/uL [place] # (Auto) 0.7 (0.1-1.2) X10*3/uL Eos # (Auto) 0.3 (0.0-0.4) X10*3/uL Baso # (Auto) 0.0 (0.0-0.2) X10*3/uL Abs Immat Gran (auto) 0.02 (0.00-0.03) X10*3/uL Absolute Neuts (auto) 4.3 (2.0-8.3) x10*3/uL Absolute Nucleated RBC 0.000 (0.0-0.012) X10*3/uL Nucleated RBC % (auto) 0.0 (0.0-0.2) /100WBC PT (9.9-13.0) SEC INR (0.9-1.1) APTT (24.1-38.0) SEC O2 Saturation % ABG pH at Pt Temp (7.35-7.45) ABG pH (Temp Correct) (7.35-7.45) ABG pCO2 at Pt Temp (32-45) mmHg ABG pCO2 (Temp Corrct (32-45) mmHg ABG pO2 at Pt Temp (83-108) mmHg ABG pO2 (Temp Correct (83-108) ABG HCO3 (22-26) mmol/L ABG Base Excess (Actual) mmol/L VBG pH (7.32-7.43) VBG pCO2 mmHg VBG pO2 mmHg VBG HCO3 (22-26) mmol/L VBG O2 Saturation % VBG Base Excess mmol/L Sodium 140 (135-145) mmol/L Potassium 4.0 (3.3-5.1) mmol/L Chloride 107 (96-108) mmol/L Carbon Dioxide 24 (22-29) mmol/L Anion Gap 13 (12-20) BUN 15 (9-16) mg/dL Creatinine 0.79 (0.5-1.4) mg/dL Estim Creat Clear Calc 108.1 Estimated GFR > 60 POC Glucose 107 (60-115) mg/dL Random Glucose 96 (60-115) mg/dL Lactic Acid (0.5-2.0) mmol/L Calcium 9.5 (8.4-10.2) mg/dL Magnesium 2.1 (1.6-2.6) mg/dL Total Bilirubin 0.4 (0.0-1.0) mg/dL Direct Bilirubin 0.2 (0.0-0.5) mg/dL AST 10 D (5-37) U/L ALT 6 (0-40) U/L Alkaline Phosphatase 38 L (39-117) U/L Ammonia (13-55) umol/L Troponin I High Sens (<3.5-35.0) ng/L Total Protein 6.0 L (6.5-8.0) g/dL Albumin 3.6 (3.5-5.0) g/dL Lipase 10 (8-78) U/L TSH 1.90 (0.32-4.0) uIU/mL Urine Color Urine Appearance Urine pH (5.0-8.0) Ur Specific [place] (1.005-1.025) Urine Protein (NEG-TRACE) MG/DL Urine Glucose (UA) (NEG) MG/DL Urine Ketones (NEG) MG/DL Urine Blood (NEG) Urine Nitrite (NEG) Ur Leukocyte Esterase (NEG) Urine Opiates Screen (Not Detect) Urine Fentanyl Screen (Not Detect) Ur Barbiturates Screen (Not Detect) Valproic Acid (50.0-100.0) mcg/mL Ur Phencyclidine Scrn (Not Detect) Ur Amphetamines Screen (Not Detect) U Benzodiazepines Scrn (Not Detect) Urine Cocaine Screen (Not Detect) U Marijuana (THC) Screen (Not Detect) Ethyl Alcohol mg/dL COVID-19 ([place]) (Negative) COVID-19 Clin Com 07/28/21 07/28/21 07/28/21 Range/Units 11:05 11:05 11:05 WBC (4.8-10.8) X10*3/uL RBC (4.60-5.80) X10*6/uL Hgb (14.0-18.0) g/dl Hct (42.0-52.0) % MCV (80.0-98.0) fL MCH (27.0-33.0) pg MCHC (31.0-36.0) g/dl RDW (11.0-16.0) % Plt Count (160-400) X10*3/uL MPV (9.4-12.4) fL Immature Gran % (Auto) (0.0-0.4) % Neut % (Auto) (45-73) % Lymph % (Auto) (20-40) % [place] % (Auto) (2-11) % Eos % (Auto) (0-4) % Baso % (Auto) (0-2) % Lymph # (Auto) (1.2-4.9) X10*3/uL [place] # (Auto) (0.1-1.2) X10*3/uL Eos # (Auto) (0.0-0.4) X10*3/uL Baso # (Auto) (0.0-0.2) X10*3/uL Abs Immat Gran (auto) (0.00-0.03) X10*3/uL Absolute Neuts (auto) (2.0-8.3) x10*3/uL Absolute Nucleated RBC (0.0-0.012) X10*3/uL Nucleated RBC % (auto) (0.0-0.2) /100WBC PT (9.9-13.0) SEC INR (0.9-1.1) APTT (24.1-38.0) SEC O2 Saturation % ABG pH at Pt Temp (7.35-7.45) ABG pH (Temp Correct) (7.35-7.45) ABG pCO2 at Pt Temp (32-45) mmHg ABG pCO2 (Temp Corrct (32-45) mmHg ABG pO2 at Pt Temp (83-108) mmHg ABG pO2 (Temp Correct (83-108) ABG HCO3 (22-26) mmol/L ABG Base Excess (Actual) mmol/L VBG pH (7.32-7.43) VBG pCO2 mmHg VBG pO2 mmHg VBG HCO3 (22-26) mmol/L VBG O2 Saturation % VBG Base Excess mmol/L Sodium (135-145) mmol/L Potassium (3.3-5.1) mmol/L Chloride (96-108) mmol/L Carbon Dioxide (22-29) mmol/L Anion Gap (12-20) BUN (9-16) mg/dL Creatinine (0.5-1.4) mg/dL Estim Creat Clear Calc Estimated GFR POC Glucose (60-115) mg/dL Random Glucose (60-115) mg/dL Lactic Acid 1.1 (0.5-2.0) mmol/L Calcium (8.4-10.2) mg/dL Magnesium (1.6-2.6) mg/dL Total Bilirubin (0.0-1.0) mg/dL Direct Bilirubin (0.0-0.5) mg/dL AST (5-37) U/L ALT (0-40) U/L Alkaline Phosphatase (39-117) U/L Ammonia 55 (13-55) umol/L Troponin I High Sens (<3.5-35.0) ng/L Total Protein (6.5-8.0) g/dL Albumin (3.5-5.0) g/dL Lipase (8-78) U/L TSH (0.32-4.0) uIU/mL Urine Color Urine Appearance Urine pH (5.0-8.0) Ur Specific [place] (1.005-1.025) Urine Protein (NEG-TRACE) MG/DL Urine Glucose (UA) (NEG) MG/DL Urine Ketones (NEG) MG/DL Urine Blood (NEG) Urine Nitrite (NEG) Ur Leukocyte Esterase (NEG) Urine Opiates Screen (Not Detect) Urine Fentanyl Screen (Not Detect) Ur Barbiturates Screen (Not Detect) Valproic Acid (50.0-100.0) mcg/mL Ur Phencyclidine Scrn (Not Detect) Ur Amphetamines Screen (Not Detect) U Benzodiazepines Scrn (Not Detect) Urine Cocaine Screen (Not Detect) U Marijuana (THC) Screen (Not Detect) Ethyl Alcohol < 10 mg/dL COVID-19 ([place]) (Negative) COVID-19 Clin Com 07/28/21 07/28/21 07/28/21 Range/Units 11:05 11:06 11:06 WBC (4.8-10.8) X10*3/uL RBC (4.60-5.80) X10*6/uL Hgb (14.0-18.0) g/dl Hct (42.0-52.0) % MCV (80.0-98.0) fL MCH (27.0-33.0) pg MCHC (31.0-36.0) g/dl RDW (11.0-16.0) % Plt Count (160-400) X10*3/uL MPV (9.4-12.4) fL Immature Gran % (Auto) (0.0-0.4) % Neut % (Auto) (45-73) % Lymph % (Auto) (20-40) % [place] % (Auto) (2-11) % Eos % (Auto) (0-4) % Baso % (Auto) (0-2) % Lymph # (Auto) (1.2-4.9) X10*3/uL [place] # (Auto) (0.1-1.2) X10*3/uL Eos # (Auto) (0.0-0.4) X10*3/uL Baso # (Auto) (0.0-0.2) X10*3/uL Abs Immat Gran (auto) (0.00-0.03) X10*3/uL Absolute Neuts (auto) (2.0-8.3) x10*3/uL Absolute Nucleated RBC (0.0-0.012) X10*3/uL Nucleated RBC % (auto) (0.0-0.2) /100WBC PT (9.9-13.0) SEC INR (0.9-1.1) APTT (24.1-38.0) SEC O2 Saturation % ABG pH at Pt Temp (7.35-7.45) ABG pH (Temp Correct) (7.35-7.45) ABG pCO2 at Pt Temp (32-45) mmHg ABG pCO2 (Temp Corrct (32-45) mmHg ABG pO2 at Pt Temp (83-108) mmHg ABG pO2 (Temp Correct (83-108) ABG HCO3 (22-26) mmol/L ABG Base Excess (Actual) mmol/L VBG pH (7.32-7.43) VBG pCO2 mmHg VBG pO2 mmHg VBG HCO3 (22-26) mmol/L VBG O2 Saturation % VBG Base Excess mmol/L Sodium (135-145) mmol/L Potassium (3.3-5.1) mmol/L Chloride (96-108) mmol/L Carbon Dioxide (22-29) mmol/L Anion Gap (12-20) BUN (9-16) mg/dL Creatinine (0.5-1.4) mg/dL Estim Creat Clear Calc Estimated GFR POC Glucose (60-115) mg/dL Random Glucose (60-115) mg/dL Lactic Acid (0.5-2.0) mmol/L Calcium (8.4-10.2) mg/dL Magnesium (1.6-2.6) mg/dL Total Bilirubin (0.0-1.0) mg/dL Direct Bilirubin (0.0-0.5) mg/dL AST (5-37) U/L ALT (0-40) U/L Alkaline Phosphatase (39-117) U/L Ammonia (13-55) umol/L Troponin I High Sens (<3.5-35.0) ng/L Total Protein (6.5-8.0) g/dL Albumin (3.5-5.0) g/dL Lipase (8-78) U/L TSH (0.32-4.0) uIU/mL Urine Color YELLOW Urine Appearance CLEAR Urine pH 7.0 (5.0-8.0) Ur Specific [place] 1.015 (1.005-1.025) Urine Protein NEG (NEG-TRACE) MG/DL Urine Glucose (UA) NEG (NEG) MG/DL Urine Ketones NEG (NEG) MG/DL Urine Blood NEG (NEG) Urine Nitrite NEG (NEG) Ur Leukocyte Esterase NEG (NEG) Urine Opiates Screen Not Detected (Not Detect) Urine Fentanyl Screen POSITIVE H (Not Detect) Ur Barbiturates Screen Not Detected (Not Detect) Valproic Acid 44.6 L (50.0-100.0) mcg/mL Ur Phencyclidine Scrn Not Detected (Not Detect) Ur Amphetamines Screen Not Detected (Not Detect) U Benzodiazepines Scrn Not Detected (Not Detect) Urine Cocaine Screen Not Detected (Not Detect) U Marijuana (THC) Screen Not Detected (Not Detect) Ethyl Alcohol mg/dL COVID-19 ([place]) (Negative) COVID-19 Clin Com 07/28/21 07/28/21 07/28/21 Range/Units 11:11 11:12 11:43 WBC (4.8-10.8) X10*3/uL RBC (4.60-5.80) X10*6/uL Hgb (14.0-18.0) g/dl Hct (42.0-52.0) % MCV (80.0-98.0) fL MCH (27.0-33.0) pg MCHC (31.0-36.0) g/dl RDW (11.0-16.0) % Plt Count (160-400) X10*3/uL MPV (9.4-12.4) fL Immature Gran % (Auto) (0.0-0.4) % Neut % (Auto) (45-73) % Lymph % (Auto) (20-40) % [place] % (Auto) (2-11) % Eos % (Auto) (0-4) % Baso % (Auto) (0-2) % Lymph # (Auto) (1.2-4.9) X10*3/uL [place] # (Auto) (0.1-1.2) X10*3/uL Eos # (Auto) (0.0-0.4) X10*3/uL Baso # (Auto) (0.0-0.2) X10*3/uL Abs Immat Gran (auto) (0.00-0.03) X10*3/uL Absolute Neuts (auto) (2.0-8.3) x10*3/uL Absolute Nucleated RBC (0.0-0.012) X10*3/uL Nucleated RBC % (auto) (0.0-0.2) /100WBC PT 12.4 (9.9-13.0) SEC INR 1.1 (0.9-1.1) APTT 34.4 (24.1-38.0) SEC O2 Saturation % ABG pH at Pt Temp (7.35-7.45) ABG pH (Temp Correct) (7.35-7.45) ABG pCO2 at Pt Temp (32-45) mmHg ABG pCO2 (Temp Corrct (32-45) mmHg ABG pO2 at Pt Temp (83-108) mmHg ABG pO2 (Temp Correct (83-108) ABG HCO3 (22-26) mmol/L ABG Base Excess (Actual) mmol/L VBG pH 7.44 H (7.32-7.43) VBG pCO2 37 mmHg VBG pO2 85 mmHg VBG HCO3 26 (22-26) mmol/L VBG O2 Saturation 96.0 % VBG Base Excess 2.2 mmol/L Sodium (135-145) mmol/L Potassium (3.3-5.1) mmol/L Chloride (96-108) mmol/L Carbon Dioxide (22-29) mmol/L Anion Gap (12-20) BUN (9-16) mg/dL Creatinine (0.5-1.4) mg/dL Estim Creat Clear Calc Estimated GFR POC Glucose (60-115) mg/dL Random Glucose (60-115) mg/dL Lactic Acid (0.5-2.0) mmol/L Calcium (8.4-10.2) mg/dL Magnesium (1.6-2.6) mg/dL Total Bilirubin (0.0-1.0) mg/dL Direct Bilirubin (0.0-0.5) mg/dL AST (5-37) U/L ALT (0-40) U/L Alkaline Phosphatase (39-117) U/L Ammonia (13-55) umol/L Troponin I High Sens (<3.5-35.0) ng/L Total Protein (6.5-8.0) g/dL Albumin (3.5-5.0) g/dL Lipase (8-78) U/L TSH (0.32-4.0) uIU/mL Urine Color Urine Appearance Urine pH (5.0-8.0) Ur Specific [place] (1.005-1.025) Urine Protein (NEG-TRACE) MG/DL Urine Glucose (UA) (NEG) MG/DL Urine Ketones (NEG) MG/DL Urine Blood (NEG) Urine Nitrite (NEG) Ur Leukocyte Esterase (NEG) Urine Opiates Screen (Not Detect) Urine Fentanyl Screen (Not Detect) Ur Barbiturates Screen (Not Detect) Valproic Acid (50.0-100.0) mcg/mL Ur Phencyclidine Scrn (Not Detect) Ur Amphetamines Screen (Not Detect) U Benzodiazepines Scrn (Not Detect) Urine Cocaine Screen (Not Detect) U Marijuana (THC) Screen (Not Detect) Ethyl Alcohol mg/dL COVID-19 ([place]) Negative (Negative) COVID-19 Clin Com See Note 07/28/21 07/28/21 Range/Units 11:43 14:06 WBC (4.8-10.8) X10*3/uL RBC (4.60-5.80) X10*6/uL Hgb (14.0-18.0) g/dl Hct (42.0-52.0) % MCV (80.0-98.0) fL MCH (27.0-33.0) pg MCHC (31.0-36.0) g/dl RDW (11.0-16.0) % Plt Count (160-400) X10*3/uL MPV (9.4-12.4) fL Immature Gran % (Auto) (0.0-0.4) % Neut % (Auto) (45-73) % Lymph % (Auto) (20-40) % [place] % (Auto) (2-11) % Eos % (Auto) (0-4) % Baso % (Auto) (0-2) % Lymph # (Auto) (1.2-4.9) X10*3/uL [place] # (Auto) (0.1-1.2) X10*3/uL Eos # (Auto) (0.0-0.4) X10*3/uL Baso # (Auto) (0.0-0.2) X10*3/uL Abs Immat Gran (auto) (0.00-0.03) X10*3/uL Absolute Neuts (auto) (2.0-8.3) x10*3/uL Absolute Nucleated RBC (0.0-0.012) X10*3/uL Nucleated RBC % (auto) (0.0-0.2) /100WBC PT (9.9-13.0) SEC INR (0.9-1.1) APTT (24.1-38.0) SEC O2 Saturation 92.0 % ABG pH at Pt Temp 7.41 (7.35-7.45) ABG pH (Temp Correct) 7.41 (7.35-7.45) ABG pCO2 at Pt Temp 37 (32-45) mmHg ABG pCO2 (Temp Corrct 37 (32-45) mmHg ABG pO2 at Pt Temp 71 L (83-108) mmHg ABG pO2 (Temp Correct 71 L (83-108) ABG HCO3 24 (22-26) mmol/L ABG Base Excess (Actual) -0.1 mmol/L VBG pH (7.32-7.43) VBG pCO2 mmHg VBG pO2 mmHg VBG HCO3 (22-26) mmol/L VBG O2 Saturation % VBG Base Excess mmol/L Sodium (135-145) mmol/L Potassium (3.3-5.1) mmol/L Chloride (96-108) mmol/L Carbon Dioxide (22-29) mmol/L Anion Gap (12-20) BUN (9-16) mg/dL Creatinine (0.5-1.4) mg/dL Estim Creat Clear Calc Estimated GFR POC Glucose (60-115) mg/dL Random Glucose (60-115) mg/dL Lactic Acid (0.5-2.0) mmol/L Calcium (8.4-10.2) mg/dL Magnesium (1.6-2.6) mg/dL Total Bilirubin (0.0-1.0) mg/dL Direct Bilirubin (0.0-0.5) mg/dL AST (5-37) U/L ALT (0-40) U/L Alkaline Phosphatase (39-117) U/L Ammonia (13-55) umol/L Troponin I High Sens 4.0 (<3.5-35.0) ng/L Total Protein (6.5-8.0) g/dL Albumin (3.5-5.0) g/dL Lipase (8-78) U/L TSH (0.32-4.0) uIU/mL Urine Color Urine Appearance Urine pH (5.0-8.0) Ur Specific [place] (1.005-1.025) Urine Protein (NEG-TRACE) MG/DL Urine Glucose (UA) (NEG) MG/DL Urine Ketones (NEG) MG/DL Urine Blood (NEG) Urine Nitrite (NEG) Ur Leukocyte Esterase (NEG) Urine Opiates Screen (Not Detect) Urine Fentanyl Screen (Not Detect) Ur Barbiturates Screen (Not Detect) Valproic Acid (50.0-100.0) mcg/mL Ur Phencyclidine Scrn (Not Detect) Ur Amphetamines Screen (Not Detect) U Benzodiazepines Scrn (Not Detect) Urine Cocaine Screen (Not Detect) U Marijuana (THC) Screen (Not Detect) Ethyl Alcohol mg/dL COVID-19 ([place]) (Negative) COVID-19 Clin Com ECG Data ECG #1: Attestation: I personally reviewed and interpreted this ECG as follows: ECG interpretation date: 07/28/21 ECG interpretation time: 11:23 Interpretation: Rate: 80 Rhythm: NSR with PACs [place]: normal Normal P waves. Normal [place]. Normal QRS complex. ST T wave : no NEGRITO, normal qTC: normal prior studies: no acute ischemia The study has been interpreted contemporaneously by me. . Discharge Plan Discharge Clinical Impression: Acute hypotension Altered mental status Qualifiers: Altered mental status type: unspecified Qualified Code(s): R41.82 - Altered mental status, unspecified Patient Disposition: Home, Self-Care Instructions: Altered Mental Status (ED), Hypotension (ED) Additional Instructions: return to ED for any worsening symptoms or concerns Prescriptions: No Action divalproex 125 mg capsule, delayed rel sprinkle 3 cap PO TID RF: 0 risperidone 1 mg tablet 1 tab PO BEDTIME RF: 0 nicotine 7 mg/24 hr Patch 24 Hour 1 patch TRANSDERMAL Q24H RF: 0 lactulose 10 gram/15 mL solution 30 ml PO TID RF: 0 fenofibrate nanocrystallized 145 mg tablet 1 tab PO DAILY RF: 0
--- NOTE | 2021-07-28 11:00 | PHA.MEDREC ---
Pharmacy Consult ? Medication Reconciliation Pharmacy has completed the medication reconciliation. Patient is a resident of [facility]. Called to verify admin times of certain medications Thanks Daniela De La Torre Pharm. D
[2021-07-28 11:14] LABS: MANUAL DIFF FLAG NO
[2021-07-28 11:15] LABS: Basophils Percent Auto 0.6 % (0-2); Eosinophils Absolute Auto 0.3 X10*3/uL (0.0-0.4); Eosinophils Percent Auto 3.8 % (0-4); Hematocrit 35.5 % (42.0-52.0); Hemoglobin 11.5 g/dl (14.0-18.0); Imm Gran Abs Auto 0.02 X10*3/uL (0.00-0.03); Imm Gran Pct Auto 0.3 % (0.0-0.4); Lymphocytes Absolute Auto 1.5 X10*3/uL (1.2-4.9); Lymphocytes Percent Auto 21.7 % (20-40); Mean Corpuscular HGB Conc 32.4 g/dl (31.0-36.0); Mean Corpuscular Hemoglobin 28.8 pg (27.0-33.0); Mean Corpuscular Volume 88.8 fL (80.0-98.0); Mean Platelet Volume 9.4 fL (9.4-12.4); Monocytes Absolute Auto 0.7 X10*3/uL (0.1-1.2); Monocytes Percent Auto 10.7 % (2-11); Neutrophils Absolute Auto 4.3 x10*3/uL (2.0-8.3); Neutrophils Percent Auto 62.9 % (45-73); Platelet Count 276 X10*3/uL (160-400); Red Cell Distribution Width 13.8 % (11.0-16.0); White Blood Count 6.8 X10*3/uL (4.8-10.8)
[2021-07-28 11:16] LABS: Appearance Urine CLEAR; Color Urine YELLOW; Glucose Urine UA NEG (NEG); Leukocyte Esterase Urine NEG (NEG); Nitrite Urine NEG (NEG); Specific Gravity - Urine 1.015 (1.005-1.025); Urine Blood NEG (NEG); Urine Ketones NEG (NEG); Urine Protein NEG (NEG-TRACE)
[2021-07-28 11:17] LABS: Venous Blood Gas Refer to POC result
[2021-07-28 11:18] LABS: VBG Base Excess 2.2 mmol/L; VBG HCO3 26 mmol/L (22-26); VBG pCO2 37 mmHg; VBG pH 7.44 (7.32-7.43); VBG pO2 85 mmHg
[2021-07-28 11:24] LABS: Ammonia 55 umol/L (13-55)
[2021-07-28 11:28] LABS: Lactic Acid 1.1 mmol/L (0.5-2.0)
[2021-07-28 11:30] LABS: Ethanol < 10 mg/dL
[2021-07-28 11:33] LABS: Alanine Aminotransferase 6 U/L (0-40); Albumin Level 3.6 g/dL (3.5-5.0); Alkaline Phosphatase 38 U/L (39-117); Anion Gap 13 (12-20); Aspartate Amino Transferase 10 U/L (5-37); Bilirubin Direct 0.2 mg/dL (0.0-0.5); Bilirubin Total 0.4 mg/dL (0.0-1.0); Blood Urea Nitrogen 15 mg/dL (9-16); Calcium 9.5 mg/dL (8.4-10.2); Carbon Dioxide 24 mmol/L (22-29); Chloride 107 mmol/L (96-108); Creatinine Clr Calc Pharmacy 108.1; Estimated Glomerular Filt Rate > 60; Glucose Random 96 mg/dL (60-115); Lipase 10 U/L (8-78); Magnesium 2.1 mg/dL (1.6-2.6); Sodium 140 mmol/L (135-145)
[2021-07-28 11:35] LABS: Amphetamine Screen Urine Not Detected (Not Detect); Barbiturates, Urine Not Detected (Not Detect); Benzodiazepines Screen Urine Not Detected (Not Detect); Cannabinoid Screen Urine Not Detected (Not Detect); Cocaine Screen Urine Not Detected (Not Detect); Fentanyl, urine POSITIVE (Not Detect); Opiate Screen Urine Not Detected (Not Detect); Phencyclidine Screen Urine Not Detected (Not Detect)
[2021-07-28 11:37] LABS: Valproate 44.6 mcg/mL (50.0-100.0)
[2021-07-28] MEDS: ondansetron HCL 4 MG/2 ML VIAL IVPUSH (11:40)
[2021-07-28] MEDS: Naloxone HCl 0.4 MG/ML VIAL IVPUSH (11:40)
[2021-07-28] MEDS: 0.9 % Sodium Chloride 1,000 ML 999 ML IVCONT (11:40)
[2021-07-28 11:41] LABS: COVID-19 Test Negative (Negative); IDNOW Serial# 9DD0AD1C
[2021-07-28] MEDS: Naloxone HCl 2 MG/2 ML SYRINGE 1 MG IVPUSH (11:47)
[2021-07-28 11:57] LABS: INTERNATIONAL NORM RATIO 1.1 (0.9-1.1); Prothrombin Time 12.4 SEC (9.9-13.0)
[2021-07-28 12:00] LABS: Partial Thromboplastin Time 34.4 SEC (24.1-38.0)
[2021-07-28] MEDS: 0.9 % Sodium Chloride 1,000 ML 999 ML IV ×2 (12:26→13:09)
[2021-07-28 14:13] LABS: ABG Refer to POC result
[2021-07-28 14:13] LABS: ABG Base Excess -0.1 mmol/L; ABG HCO3 24 mmol/L (22-26); ABG pCO2 37 mmHg (32-45); ABG pCO2 TC 37 mmHg (32-45); ABG pH 7.41 (7.35-7.45); ABG pH TC 7.41 (7.35-7.45); ABG pO2 71 mmHg (83-108); ABG pO2 TC 71 (83-108)
== END 2021-07-28 15:39 | disposition home or self-care (01) ==
PROVIDERS: Emergency Provider Emergency Medicine; PCP Hospitalist
DX: R41.82 Altered mental status, unspecified (principal); I95.9 Hypotension, unspecified; F03.90 Unspecified dementia, unspecified severity, without behavioral disturbance, psychotic disturbance, mood disturbance, and anxiety; E11.9 Type 2 diabetes mellitus without complications; J43.9 Emphysema, unspecified; Z79.899 Other long term (current) drug therapy
CPT/HCPCS: 36415; 70450; 71250; 74176; 80048; 80076; 80164; 80307; 81003; 82077; 82140; 82803; 82947; 83605; 83690; 83735; 84443; 84484; 85025; 85610; 85730; 87040; 87635; 93005; 99284; J2405

== ENCOUNTER 2021-07-29 10:20 | Inpatient (IN) | payer MEDICARE, MEDICAID, SELFPAY ==
[2021-07-29] VITALS (9 sets, daily range): BP systolic 86–150; BP diastolic 37–80; PULSE 90–111; RESP 15–22; TEMP 37.1–38.3; O2SAT 85–95; BMI 28.2
--- NOTE | ~2021-07-29 | XR_ITS ---
EXAMINATION: XR CHEST CLINICAL INFORMATION: Low oxygen. COMPARISON: CT chest without contrast 07/28/2021. TECHNIQUE: Frontal view of the chest was obtained. FINDINGS: Lungs are hypoexpanded with dense left lower lobe opacity likely consolidation/mass. A mass was seen on the recent CT chest exam. Mild haziness is noted in the left lung base. There is patchy opacity in both lower lobes atelectasis/infiltrate. The upper lungs are relatively clear. Heart size and pulmonary vascularity is normal. XR/XR chest 1V IMPRESSION: Dense left lower lobe consolidation question mediastinal mass or left lower lobe lung mass Suspect small left pleural effusion with bibasilar infiltrate/atelectasis.
--- NOTE | 2021-07-29 10:41 | ECG_ITS ---
Test Reason : DYSPNEA Blood Pressure : / mmHG Vent. Rate : 111 BPM Atrial Rate : 111 BPM P-R Int : 200 ms QRS Dur : 082 ms QT Int : 340 ms P-R-T Axes : 045 051 059 degrees QTc Int : 462 ms Sinus tachycardia with Premature atrial complexes RSR' or QR pattern in V1 suggests right ventricular conduction delay Otherwise normal ECG When compared with ECG of 28-JUL-2021 11:18, No significant change was found Referred By: Argenis Ward Electronically Signed By:DAVIS NORIEGA MD
--- NOTE | 2021-07-29 10:43 | ED.GENADULT ---
HPI - General Adult General Chief complaint: Dyspnea Stated complaint: low o2 Time Seen by Provider: 07/29/21 10:37 Source: EMS, RN notes reviewed and old records reviewed Mode of arrival: EMS Limitations: no limitations History of Present Illness HPI narrative: 71 year-old male from [facility] came in for evaluation of low oxygenation and decreased mental status. This is a 71 years old male return to the emergency department for evaluation of decreased mental status and decrease oxygen level, patient with history of dementia, COPD, emphysema, coronary artery disease, aspiration pneumonia was seen and evaluated in the emergency department for reported low blood pressure, patient had CT head/CT of the chest showed no acute findings, patient also had unremarkable labs, and patient mental status started improving the emergency department patient was sent back to the long term. This morning patient found more lethargic and low oxygen level and patient was recent to the hospital for re-evaluation. Patient is lethargic but easily arousable, has no complain, O2 level has improved by nasal supplemental oxygen placed by EMS. Patient is in no acute distress. Related Data Home Medications Medication Instructions Recorded Confirmed divalproex 125 mg capsule,delayed 3 cap PO TID 07/28/21 07/29/21 release sprinkle fenofibrate nanocrystallized 145 1 tab PO DAILY 07/28/21 07/29/21 mg tablet lactulose 10 gram/15 mL oral 30 ml PO TID 07/28/21 07/29/21 solution nicotine 7 mg/24 hr daily 1 patch TRANSDERMAL Q24H 07/28/21 07/29/21 transdermal patch risperidone 1 mg tablet 1 tab PO BEDTIME 07/28/21 07/29/21 acetaminophen 325 mg tablet 650 mg PO Q4H PRN 07/29/21 07/29/21 cholecalciferol (vitamin D3) 10 10 mcg PO DAILY 07/29/21 07/29/21 mcg (400 unit) capsule (Vitamin D3) clotrimazole 1 % topical cream 1 appl TOPICAL DAILY PRN 07/29/21 07/29/21 (Lotrimin AF (clotrimazole)) docusate sodium 100 mg capsule 200 mg PO DAILY 07/29/21 07/29/21 sennosides 8.6 mg tablet (senna) 8.6 mg PO BEDTIME PRN 07/29/21 07/29/21 Allergies Allergy/AdvReac Type Severity Reaction Status Date / Time No Known Allergies Allergy Verified 07/18/20 20:20 [No Known Allergies*] Review of Systems Review of Systems: All other systems are reviewed and are negative Constitutional: Reports as per HPI and Reports no additional constitutional complaints Eyes: Reports as per HPI and Reports no additional eye complaints Reports system reviewed and no additional complaints, except as documented Cardiovascular: Reports as per HPI and Reports no additional cardiovascular complaints Respiratory: Reports as per HPI and Reports no additional respiratory complaints Gastrointestinal: Reports as per HPI and Reports no additional gastrointestinal complaints Genitourinary: Reports no additional female genitourinary complaints Musculoskeletal: Reports no additional musculoskeletal complaints Skin/Breast: Reports system reviewed and no additional complaints, except as docu Psychiatric: Reports no additional psychiatric complaints Endocrine: Reports no additional endocrine complaints Hematologic/Lymphatic: Reports no additional hematologic/lymphatic complaints Allergic/Immunologic: Reports no additional allergic/immunologic complaints Reports system reviewed and no additional complaints, except as documented and Reports Abnormal speech present [facility] Past Medical History Medical History Asthma Behavior disorder Cataract Dementia Diabetes Dysphagia Emphysema lung ETOH abuse Gastroenteritis Hernia Hyperlipemia Social History Social History Alcohol intake: unknown Patient Tobacco Use Status: Tobacco use Unknown Use of substances other than those prescribed or required for medical reasons: Unknown Advance Directives: No Advance Directives Information Provided: No Physical Exam Vital Signs: Vital Signs: Last Vital Signs Temp 101 F H 07/29/21 10:55 Pulse 105 H 07/29/21 12:55 Resp 20 07/29/21 12:55 BP 97/47 L 07/29/21 12:55 Pulse Ox 89 L 07/29/21 12:55 Oxygen Flow Rate 2 07/29/21 10:37 Body Mass Index 28.2 Vital signs have been reviewed as appeared to be correct. Blood pressure low Heart rate elevated Respiration rate elevated. Temperature normal. Oxygen saturation normal. Appearance: Lethargic but easily arousable. No acute distress. Head: Normal external exam. Normocephalic. Atraumatic. No Lord signs noted. No raccoon eyes noted Eyes: PERRLA. EOMI. Conjunctiva and sclera normal. Eyelids normal. ENT: TM's Normal. Pharynx normal. Uvula midline. Moist mucous membranes. No trismus noted. No drooling noted. No muffled voice noted. Neck: Normal inspection. Neck supple. FROM. No adenopathy. Thyroid Normal. No meningeal signs. No neck mass noted. CVS: Normal heart rate and rhythm. Heart sound normal. No murmurs noted. Pulses normal throughout. Respiratory: No respiratory distress. Painless inspiration. Breath sounds normal. No wheezes/rales/rhonchi noted. Chest nontender. No accessory muscle usage noted or decreased air movement noted. Abdomen: Soft and nontender. Bowel sounds normal in all 4 quadrants. No distention noted. No organomegaly noted. No visible injury noted. Back: No CVA tenderness. Full range of motion noted. Skin: Skin warm and dry. Normal skin color. Normal skin turgor. No rashes/lesions/lacerations noted. Extremities: +2 lower extremity edema bilaterally. Extremities exhibit normal range of motion. Extremities nontender. Neuro: Oriented X 3. Cranial nerve exam: II-XII are grossly intact No motor deficit. No sensory deficit. Reflexes normal. Course Course Course Narrative: Assessment and plan. 71-year-old male came in from [facility] for increased mental status change, and became hypoxic, patient was seen yesterday for change mental status with unremarkable full workup, x-ray is questioning bilateral infiltrate which could be a potential aspiration pneumonia given patient condition. Patient meet criteria for SIRS, with slight elevation of lactic acid of 2.4, Zosyn/azithromycin were considered small IV hydration. Reevaluation(s) Reevaluation #1: Patient's blood pressure is 97/47 with map of 55, consider IV fluids of 1 L. Time: 13:25 Medical Decision Making Medical Records Medical records reviewed: Yes I reviewed the patient's medical records. Lab Data Lab results reviewed: Yes I reviewed the patient's lab results. Result diagrams: 07/29/21 11:25 07/29/21 11:25 Labs: Lab Results 07/29/21 07/29/21 07/29/21 Range/Units 11:14 11:25 11:25 WBC 15.7 H (4.8-10.8) X10*3/uL RBC 4.78 (4.60-5.80) X10*6/uL Hgb 13.7 L (14.0-18.0) g/dl Hct 43.0 D (42.0-52.0) % MCV 90.0 (80.0-98.0) fL MCH 28.7 (27.0-33.0) pg MCHC 31.9 (31.0-36.0) g/dl RDW 13.8 (11.0-16.0) % Plt Count 332 (160-400) X10*3/uL MPV 9.4 (9.4-12.4) fL Immature Gran % (Auto) 0.4 (0.0-0.4) % Neut % (Auto) 87.7 H (45-73) % Lymph % (Auto) 4.8 L (20-40) % [place] % (Auto) 6.8 (2-11) % Eos % (Auto) 0.1 (0-4) % Baso % (Auto) 0.2 (0-2) % Lymph # (Auto) 0.8 L (1.2-4.9) X10*3/uL [place] # (Auto) 1.1 (0.1-1.2) X10*3/uL Eos # (Auto) 0.0 (0.0-0.4) X10*3/uL Baso # (Auto) 0.0 (0.0-0.2) X10*3/uL Abs Immat Gran (auto) 0.06 H (0.00-0.03) X10*3/uL Absolute Neuts (auto) 13.8 H (2.0-8.3) x10*3/uL Absolute Nucleated RBC 0.000 (0.0-0.012) X10*3/uL Nucleated RBC % (auto) 0.0 (0.0-0.2) /100WBC Sodium 142 (135-145) mmol/L Potassium 4.0 (3.3-5.1) mmol/L Chloride 107 (96-108) mmol/L Carbon Dioxide 22 (22-29) mmol/L Anion Gap 17 (12-20) BUN 11 (9-16) mg/dL Creatinine 0.94 (0.5-1.4) mg/dL Estim Creat Clear Calc 92.2 Estimated GFR > 60 Random Glucose 114 (60-115) mg/dL Lactic Acid (0.5-2.0) mmol/L Calcium 9.7 (8.4-10.2) mg/dL Total Bilirubin 0.6 (0.0-1.0) mg/dL Direct Bilirubin 0.2 (0.0-0.5) mg/dL AST 12 (5-37) U/L ALT 6 (0-40) U/L Alkaline Phosphatase 44 (39-117) U/L Troponin I High Sens (<3.5-35.0) ng/L B-Natriuretic Peptide (<100) pg/mL Total Protein 6.9 (6.5-8.0) g/dL Albumin 3.9 (3.5-5.0) g/dL Lipase 5 L (8-78) U/L Urine Color Urine Appearance Urine pH (5.0-8.0) Ur Specific [place] (1.005-1.025) Urine Protein (NEG-TRACE) MG/DL Urine Glucose (UA) (NEG) MG/DL Urine Ketones (NEG) MG/DL Urine Blood (NEG) Urine Nitrite (NEG) Ur Leukocyte Esterase (NEG) Urine RBC (0) /HPF Urine WBC (0-4) /HPF Ur Squamous Epith Cells /LPF Urine Bacteria /LPF Hyaline Casts /LPF Urine Mucus /LPF COVID-19 ([facility]) Negative (Negative) COVID-19 Clin Com See Note 07/29/21 07/29/21 07/29/21 Range/Units 11:25 11:26 11:33 WBC (4.8-10.8) X10*3/uL RBC (4.60-5.80) X10*6/uL Hgb (14.0-18.0) g/dl Hct (42.0-52.0) % MCV (80.0-98.0) fL MCH (27.0-33.0) pg MCHC (31.0-36.0) g/dl RDW (11.0-16.0) % Plt Count (160-400) X10*3/uL MPV (9.4-12.4) fL Immature Gran % (Auto) (0.0-0.4) % Neut % (Auto) (45-73) % Lymph % (Auto) (20-40) % [place] % (Auto) (2-11) % Eos % (Auto) (0-4) % Baso % (Auto) (0-2) % Lymph # (Auto) (1.2-4.9) X10*3/uL [place] # (Auto) (0.1-1.2) X10*3/uL Eos # (Auto) (0.0-0.4) X10*3/uL Baso # (Auto) (0.0-0.2) X10*3/uL Abs Immat Gran (auto) (0.00-0.03) X10*3/uL Absolute Neuts (auto) (2.0-8.3) x10*3/uL Absolute Nucleated RBC (0.0-0.012) X10*3/uL Nucleated RBC % (auto) (0.0-0.2) /100WBC Sodium (135-145) mmol/L Potassium (3.3-5.1) mmol/L Chloride (96-108) mmol/L Carbon Dioxide (22-29) mmol/L Anion Gap (12-20) BUN (9-16) mg/dL Creatinine (0.5-1.4) mg/dL Estim Creat Clear Calc Estimated GFR Random Glucose (60-115) mg/dL Lactic Acid 2.4 H* (0.5-2.0) mmol/L Calcium (8.4-10.2) mg/dL Total Bilirubin (0.0-1.0) mg/dL Direct Bilirubin (0.0-0.5) mg/dL AST (5-37) U/L ALT (0-40) U/L Alkaline Phosphatase (39-117) U/L Troponin I High Sens 6.5 D (<3.5-35.0) ng/L B-Natriuretic Peptide 126 H (<100) pg/mL Total Protein (6.5-8.0) g/dL Albumin (3.5-5.0) g/dL Lipase (8-78) U/L Urine Color YELLOW Urine Appearance CLEAR Urine pH 6.0 (5.0-8.0) Ur Specific [place] 1.020 (1.005-1.025) Urine Protein NEG (NEG-TRACE) MG/DL Urine Glucose (UA) NEG (NEG) MG/DL Urine Ketones NEG (NEG) MG/DL Urine Blood 2+ H (NEG) Urine Nitrite NEG (NEG) Ur Leukocyte Esterase TRACE H (NEG) Urine RBC 15-29 H (0) /HPF Urine WBC 0-2 (0-4) /HPF Ur Squamous Epith Cells TRACE /LPF Urine Bacteria TRACE /LPF Hyaline Casts 0-2 /LPF Urine Mucus 1+ /LPF COVID-19 ([facility]) (Negative) COVID-19 Clin Com Imaging Data Chest x-ray: Attestation: I personally reviewed and interpreted this imaging study as follows: Radiologist's impression: Dense left lower lobe consolidation question mediastinal mass or left lower lobe lung mass ? Suspect small left pleural effusion with bibasilar infiltrate/atelectasis. ? Discharge Plan Discharge Clinical Impression: Aspiration pneumonia Patient Disposition: Admitted As Inpatient
--- NOTE | 2021-07-29 11:26 | PHA.MEDREC ---
Pharmacy Consult ? Medication Reconciliation Pharmacy has completed the medication reconciliation. Deann CelisD
[2021-07-29 11:31] LABS: MANUAL DIFF FLAG NO
[2021-07-29 11:32] LABS: Basophils Percent Auto 0.2 % (0-2); Eosinophils Percent Auto 0.1 % (0-4); Hemoglobin 13.7 g/dl (14.0-18.0); Imm Gran Abs Auto 0.06 X10*3/uL (0.00-0.03); Imm Gran Pct Auto 0.4 % (0.0-0.4); Lymphocytes Absolute Auto 0.8 X10*3/uL (1.2-4.9); Lymphocytes Percent Auto 4.8 % (20-40); Mean Corpuscular HGB Conc 31.9 g/dl (31.0-36.0); Mean Corpuscular Hemoglobin 28.7 pg (27.0-33.0); Mean Platelet Volume 9.4 fL (9.4-12.4); Monocytes Absolute Auto 1.1 X10*3/uL (0.1-1.2); Monocytes Percent Auto 6.8 % (2-11); Neutrophils Absolute Auto 13.8 x10*3/uL (2.0-8.3); Neutrophils Percent Auto 87.7 % (45-73); Platelet Count 332 X10*3/uL (160-400); Red Blood Count 4.78 X10*6/uL (4.60-5.80); Red Cell Distribution Width 13.8 % (11.0-16.0); White Blood Count 15.7 X10*3/uL (4.8-10.8)
[2021-07-29 11:44] LABS: Lactic Acid 2.4 mmol/L (0.5-2.0)
[2021-07-29 11:48] LABS: Appearance Urine CLEAR; Color Urine YELLOW; Glucose Urine UA NEG (NEG); Leukocyte Esterase Urine TRACE (NEG); Nitrite Urine NEG (NEG); UACC Culture Trigger YES; Urine Blood 2+ (NEG); Urine Ketones NEG (NEG); Urine Protein NEG (NEG-TRACE)
[2021-07-29 11:49] LABS: Alanine Aminotransferase 6 U/L (0-40); Albumin Level 3.9 g/dL (3.5-5.0); Alkaline Phosphatase 44 U/L (39-117); Anion Gap 17 (12-20); Aspartate Amino Transferase 12 U/L (5-37); Bilirubin Direct 0.2 mg/dL (0.0-0.5); Bilirubin Total 0.6 mg/dL (0.0-1.0); Blood Urea Nitrogen 11 mg/dL (9-16); Calcium 9.7 mg/dL (8.4-10.2); Carbon Dioxide 22 mmol/L (22-29); Chloride 107 mmol/L (96-108); Creatinine Clr Calc Pharmacy 92.2; Estimated Glomerular Filt Rate > 60; Glucose Random 114 mg/dL (60-115); Lipase 5 U/L (8-78); Sodium 142 mmol/L (135-145); Total Protein 6.9 g/dL (6.5-8.0)
[2021-07-29] MEDS: Piperacillin Sodium/Tazobactam 3.375 GM in 0.9 % Sodium Chloride 50 ML IV ×2 (11:51→20:03)
[2021-07-29 11:54] LABS: B Type Natriuretic Peptide 126 pg/mL (<100); Troponin-I High Sensitivity 6.5 ng/L (<3.5-35.0)
[2021-07-29 12:04] LABS: COVID-19 Test Negative (Negative)
[2021-07-29] MEDS: Furosemide 40 MG/4 ML VIAL IVPUSH (12:07)
[2021-07-29 12:09] LABS: Squamous Epithelial Cell Urine TRACE /LPF; WBC Urine 0-2 /HPF (0-4)
[2021-07-29 12:10] LABS: Bacteria Urine TRACE /LPF; Mucus Urine 1+ /LPF
[2021-07-29] MEDS: Azithromycin 500 MG in 0.9 % Sodium Chloride 250 ML 125 MG IV (12:11)
[2021-07-29 12:12] LABS: Hyaline Casts Urine 0-2 /LPF
[2021-07-29] MEDS: Albuterol/Iprat 2.5/0.5MG 3 ML AMPUL.NEB INHALE (12:14)
[2021-07-29] MEDS: Albuterol Sulfate (0.083%) 2.5 MG/3 ML VIAL.NEB INHALE (12:14)
[2021-07-29 13:28] LABS: Reflex Lactate? Lactic Acid Added
[2021-07-29] MEDS: 0.9 % Sodium Chloride 1,000 ML 500 ML IVCONT (13:39)
[2021-07-29 14:06] LABS: ~Lactic Acid-LAB USE ONLY 3.4 mmol/L (0.5-2.0)
--- NOTE | 2021-07-29 14:13 | PC.NURSE ---
respiratory called as pt continues to remove NC, SaO2 around 86% on 4l. pt changed to a venti mask at 35%
--- NOTE | 2021-07-29 14:16 | PC.NURSE ---
pt pulled out 18G IV in wrist and continues to pull at catheter and pull off oxygen NC, pt now with support person at bedside for redirection
--- NOTE | 2021-07-29 14:36 | PC.NURSE ---
per Zak paperwork sent with pt he eats soft bite sized diet
--- NOTE | 2021-07-29 15:28 | PC.NURSE ---
dr. Silva at bedside
[2021-07-29 15:51] LABS: Reflex Lactate? 2 Y
--- NOTE | 2021-07-29 15:52 | P.HPHOSP_ITS ---
History of Present Illness Date of Service: 07/29/21 71 years old male for evaluation of decreased mental status and decrease oxygen level; patient with history of dementia, COPD, emphysema, coronary artery disease, aspiration pneumonia was seen and evaluated in the emergency department for reported low blood pressure,(07/28/21) .CT of chest demonstrated increase of known LLL mass.Was given 3L of volume with improvement in BP. Decision was made to send pt back to [facility]. This am at [facility]; found to be lethargic and hypoxic. Sent back to [facility] ; CXR demonstrated dense lower lobe consolidation along with left lower lobe mass. He is currently on high-flow oxygen satting 90%. He is no longer verbally responsive. Of note, patient is a full code under the guardianship of Chance Car.([phone]). He will be admitted for treatment of a HAP in the backdrop of known lung mass Review of Systems Review of Systems: unobtainable [facility] Medical History (Updated 07/29/21 @ 16:04 by Praful Silva DO) Asthma Behavior disorder Cataract Dementia Diabetes Dysphagia Emphysema lung ETOH abuse Gastroenteritis Hernia Hyperlipemia Social History Alcohol intake: unknown Patient Tobacco Use Status: Tobacco use Unknown Use of substances other than those prescribed or required for medical reasons: Unknown Advance Directives: No Advance Directives Information Provided: No Meds Allergies Allergy/AdvReac Type Severity Reaction Status Date / Time No Known Allergies Allergy Verified 07/18/20 20:20 [No Known Allergies*] Active Medications: Current Medications Acetaminophen (Acetaminophen 325 Mg Tablet) 650 mg PO Q6H PRN PRN Reason: Pain, Mild (Pain Scale 1-3) Acetaminophen (Acetaminophen 325 Mg Tablet) 650 mg PO Q4H PRN PRN Reason: Fever Or Pain Divalproex Sodium (Divalproex Sodium Sprinkles 125 Mg ) 375 mg PO TID [facility]Y Docusate Sodium (Docusate Sodium 100 Mg Capsule) 200 mg PO DAILY J[facility]Y Enoxaparin Sodium (Enoxaparin Sodium 40 Mg/0.4 Ml Syringe) 40 mg SUBCUT Q24H J[facility]Y Sodium Chloride (Ns) 1,000 mls @ 100 mls/hr IVCONT .Q10H [facility] Piperacillin Sod/Tazobactam (Sod 3.375 gm/ Sodium Chloride) 50 mls @ 100 mls/hr IV Q6H [facility] Lactulose (Lactulose 20 Gm/30 Ml Solution) 20 gm PO TID [facility] Methylprednisolone Sodium Succinate (Methylprednisolone Sod Succ 125 Mg/2 Ml Vial) 60 mg IVPUSH Q8H [facility] Nicotine (Nicotine 7 Mg Patch.Td24) mg TRANSDERMA Q24H [facility] Non-Formulary Medication (Fenofibrate Nanocrystallized) 1 tab PO DAILY [facility] Pharmacy Consult (Consult Rx Perform Med Rec) 1 each MISCELLANE ONCE PRN PRN Reason: Consult order Pharmacy Consult (Consult Rx Vancomycin Dosing) 1 each MISCELLANE DAILY PRN PRN Reason: Consult order Risperidone (Risperidone 1 Mg Tablet) 1 mg PO BEDTIME JAMEY Senna (Sennosides 8.6 Mg Tablet) 8.6 mg PO BEDTIME PRN PRN Reason: Constipation Sodium Chloride (0.9 % Sodium Chloride Flush 3 Ml Syringe) 3 ml IVFLUSH QSHIFT [facility] Vitamin D (Cholecalciferol (Vitamin D3) 10 Mcg Tablet) 10 mcg PO DAILY [facility] Home Medications Medication Instructions Recorded Confirmed Last Taken Type divalproex 125 mg capsule,delayed 3 cap PO TID 07/28/21 07/29/21 07/28/21 History release sprinkle fenofibrate nanocrystallized 145 1 tab PO DAILY 07/28/21 07/29/21 07/28/21 History mg tablet lactulose 10 gram/15 mL oral 30 ml PO TID 07/28/21 07/29/21 07/28/21 History solution nicotine 7 mg/24 hr daily 1 patch TRANSDERMAL Q24H 07/28/21 07/29/21 07/28/21 History transdermal patch risperidone 1 mg tablet 1 tab PO BEDTIME 07/28/21 07/29/21 07/27/21 History acetaminophen 325 mg tablet 650 mg PO Q4H PRN 07/29/21 07/29/21 Unknown History cholecalciferol (vitamin D3) 10 10 mcg PO DAILY 07/29/21 07/29/21 Unknown History mcg (400 unit) capsule (Vitamin D3) clotrimazole 1 % topical cream 1 appl TOPICAL DAILY PRN 07/29/21 07/29/21 Unknown History (Lotrimin AF (clotrimazole)) docusate sodium 100 mg capsule 200 mg PO DAILY 07/29/21 07/29/21 Unknown History sennosides 8.6 mg tablet (senna) 8.6 mg PO BEDTIME PRN 07/29/21 07/29/21 Unknown History Physical Exam Vital Signs and Narrative: Vital Signs: Last Vital Signs Temp 100.1 F 07/29/21 15:15 Pulse 98 07/29/21 15:15 Resp 22 H 07/29/21 15:15 BP 118/61 07/29/21 15:15 Pulse Ox 94 07/29/21 15:15 Oxygen Flow Rate 2 07/29/21 10:37 Body Mass Index 28.2 Const: Other: response with Crohn's to name otherwise nonverbal Resp: Other: diminished all field with poor air entry left lower lobe with scant expiratory wheezes Cardio: Other: no S4; positive S1-S2; n GI: Other: soft nontender nondistended with normoactive bowel sounds Extrem: Other: no edema Results Labs CBC and Chem 7: 07/29/21 11:25 07/29/21 11:25 Labs: Laboratory Results - last 24 hr 07/29/21 07/29/21 07/29/21 11:14 11:25 11:25 MCV 90.0 MCH 28.7 MCHC 31.9 RDW 13.8 Plt Count 332 MPV 9.4 Immature Gran % (Auto) 0.4 Neut % (Auto) 87.7 H Lymph % (Auto) 4.8 L [place] % (Auto) 6.8 Eos % (Auto) 0.1 Baso % (Auto) 0.2 Lymph # (Auto) 0.8 L [place] # (Auto) 1.1 Eos # (Auto) 0.0 Baso # (Auto) 0.0 Abs Immat Gran (auto) 0.06 H Absolute Neuts (auto) 13.8 H Absolute Nucleated RBC 0.000 Nucleated RBC % (auto) 0.0 Anion Gap 17 Estim Creat Clear Calc 92.2 Estimated GFR > 60 Random Glucose 114 Lactic Acid Lactic Acid Fup @ 2Hr Calcium 9.7 Total Bilirubin 0.6 Direct Bilirubin 0.2 AST 12 ALT 6 Alkaline Phosphatase 44 Troponin I High Sens B-Natriuretic Peptide Total Protein 6.9 Albumin 3.9 Lipase 5 L Urine Color Urine Appearance Urine pH Ur Specific [place] Urine Protein Urine Glucose (UA) Urine Ketones Urine Blood Urine Nitrite Ur Leukocyte Esterase Urine RBC Urine WBC Ur Squamous Epith Cells Urine Bacteria Hyaline Casts Urine Mucus COVID-19 ([place]) Negative COVID-19 Clin Com See Note 07/29/21 07/29/21 07/29/21 11:25 11:26 11:33 MCV MCH MCHC RDW Plt Count MPV Immature Gran % (Auto) Neut % (Auto) Lymph % (Auto) [place] % (Auto) Eos % (Auto) Baso % (Auto) Lymph # (Auto) [place] # (Auto) Eos # (Auto) Baso # (Auto) Abs Immat Gran (auto) Absolute Neuts (auto) Absolute Nucleated RBC Nucleated RBC % (auto) Anion Gap Estim Creat Clear Calc Estimated GFR Random Glucose Lactic Acid 2.4 H* Lactic Acid Fup @ 2Hr Calcium Total Bilirubin Direct Bilirubin AST ALT Alkaline Phosphatase Troponin I High Sens 6.5 D B-Natriuretic Peptide 126 H Total Protein Albumin Lipase Urine Color YELLOW Urine Appearance CLEAR Urine pH 6.0 Ur Specific [place] 1.020 Urine Protein NEG Urine Glucose (UA) NEG Urine Ketones NEG Urine Blood 2+ H Urine Nitrite NEG Ur Leukocyte Esterase TRACE H Urine RBC 15-29 H Urine WBC 0-2 Ur Squamous Epith Cells TRACE Urine Bacteria TRACE Hyaline Casts 0-2 Urine Mucus 1+ COVID-19 ([place]) COVID-19 Clin Com 07/29/21 13:48 MCV MCH MCHC RDW Plt Count MPV Immature Gran % (Auto) Neut % (Auto) Lymph % (Auto) [place] % (Auto) Eos % (Auto) Baso % (Auto) Lymph # (Auto) [place] # (Auto) Eos # (Auto) Baso # (Auto) Abs Immat Gran (auto) Absolute Neuts (auto) Absolute Nucleated RBC Nucleated RBC % (auto) Anion Gap Estim Creat Clear Calc Estimated GFR Random Glucose Lactic Acid Lactic Acid Fup @ 2Hr 3.4 H* Calcium Total Bilirubin Direct Bilirubin AST ALT Alkaline Phosphatase Troponin I High Sens B-Natriuretic Peptide Total Protein Albumin Lipase Urine Color Urine Appearance Urine pH Ur Specific [place] Urine Protein Urine Glucose (UA) Urine Ketones Urine Blood Urine Nitrite Ur Leukocyte Esterase Urine RBC Urine WBC Ur Squamous Epith Cells Urine Bacteria Hyaline Casts Urine Mucus COVID-19 ([place]) COVID-19 Clin Com Imaging Radiologist's Impressions: Impressions Chest X-Ray 07/29/21 10:41 IMPRESSION: Dense left lower lobe consolidation question mediastinal mass or left lower lobe lung mass Suspect small left pleural effusion with bibasilar infiltrate/atelectasis. Assessment and Plan (1) Pneumonia: Status: Acute (2) Dementia: Status: Acute (3) Asthma: Status: Acute (4) 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: Status: Acute 71-year-old male longstanding resident of [facility] with known left lower lobe mass that has been followed by CT presents with hypoxia and mental status changes. Seen in emergency room 07/28/21 for hypotension; responded well to volume repletion ( 3 L). . . Mentation back to baseline. Return to care 1 at my request. This a.m. staff found patient confused and short of breath with low oxygen saturation. upon arrival to agency ER, found to be nonverbal requiri ng high-flow O2. He will be admitted for treatment of same 1. Pneumonia in backdrop of known left lower lobe mass Doubt aspiration given known mass however will treat as hospital-acquired given institutional status. Will treat with vanco/ Zosyn / steroids/ nebs Given overall poor prognosis, will speak to guardian in a.m. two move forward on change of code status 2. Asthma Treatment as per 1. 3. Dementia Continue outpatient therapies as tolerated 4 Full code Lovenox Quality Stroke Does the patient have a stroke diagnosis?: No VTE Prior VTE?: No VTE Risk Level:: Medical - moderate - high VTE Device Contraindication: N/A - Device Ordered VTE Drug Contraindication: N/A - Med Ordered
--- NOTE | 2021-07-29 16:44 | PHA.PROG ---
Admission Date/Time: July 29, 2021 15:45 Indication: RESPIRATORY INFECTION Weight in k.79 kg Adjusted body weight in Kg: [place] body weight in Kg: Obesity Dosing Indication % IBW: Serum Creatinine - Last 168 Hours 07/29/21 11:25 Creatinine 0.94 Estimated CrCl and GFR - Last 168 Hours 07/29/21 11:25 Estim Creat Clear Calc 92.2 Estimated GFR > 60 Vancomycin Loading Dose: 2000 MG Current Vancomycin Dosing Regimen: 1 GRAM BID AFTER LOAD Vancomycin Monitoring using AUC goal of 400 - 600 range with trough as surrogate marker: AUC 517 Date and Time for next Vancomycin Level to be drawn: 07/31/21 0400 TROUGH Pharmacist Comments on Vancomycin Plan: Vancomycin dosing will take advantage of [employer] as a clinical decision support tool that uses Bayesian modeling to calculate individual patient's pharmacokinetic parameters and forecast the patient's drug concentration time course with the target goal AUC 24 range of 400 - 600 mg/L/hr.
--- NOTE | 2021-07-29 16:45 | PHA.PROG ---
Admission Date/Time: July 29, 2021 15:45 Indication: RESPIRATORY INFECTION Weight in k.79 kg Adjusted body weight in Kg: [place] body weight in Kg: Obesity Dosing Indication % IBW: Serum Creatinine - Last 168 Hours 07/29/21 11:25 Creatinine 0.94 Estimated CrCl and GFR - Last 168 Hours 07/29/21 11:25 Estim Creat Clear Calc 92.2 Estimated GFR > 60 Vancomycin Loading Dose: 2000 MG Current Vancomycin Dosing Regimen: 1000 MG BID AFTER LOAD Vancomycin Monitoring using AUC goal of 400 - 600 range with trough as surrogate marker: AUC 517 Date and Time for next Vancomycin Level to be drawn:07/31/21 0400 TROUGH Pharmacist Comments on Vancomycin Plan: Vancomycin dosing will take advantage of [employer] as a clinical decision support tool that uses Bayesian modeling to calculate individual patient's pharmacokinetic parameters and forecast the patient's drug concentration time course with the target goal AUC 24 range of 400 - 600 mg/L/hr.
[2021-07-29] MEDS: 0.9 % Sodium Chloride 1,000 ML 100 ML IVCONT (17:03)
[2021-07-29] MEDS: methylPREDNISolone Sod Succ 125 MG/2 ML VIAL 60 MG IVPUSH (17:07)
[2021-07-29] MEDS: Enoxaparin Sodium 40 MG/0.4 ML SYRINGE SUBCUT (17:08)
--- NOTE | 2021-07-29 18:02 | PC.NURSE ---
pt continued to pull off his O2 venti mask, pull at his catheter and IV, accepting of redirection but does continue to pull
[2021-07-29 18:16] LABS: ~Lactic Acid-LAB USE ONLY 3.5 mmol/L (0.5-2.0)
[2021-07-29] MEDS: Nicotine 7 MG PATCH.TD24 TRANSDERMA (19:14)
--- NOTE | 2021-07-29 20:03 | PC.NURSE ---
zosyn started late as pt unable to keep arm straight during vanco administration causing prolonged admin time
[2021-07-29] MEDS: Divalproex Sodium Sprinkles 125 MG CAP.DR.SPR 375 MG PO (20:55)
[2021-07-29] MEDS: risperiDONE 1 MG TABLET PO (20:59)
[2021-07-29] MEDS: Acetaminophen 325 MG TABLET 650 MG PO (20:59)
[2021-07-29] MEDS: Lactulose 20 GM/30 ML SOLUTION PO (21:02)
[2021-07-30] VITALS (9 sets, daily range): BP systolic 114–158; BP diastolic 52–73; PULSE 79–92; RESP 16–19; TEMP 36.6–37.1; O2SAT 92–98
[2021-07-30] MEDS: Piperacillin Sodium/Tazobactam 3.375 GM in 0.9 % Sodium Chloride 50 ML IV ×4 (02:59→18:38)
[2021-07-30] MEDS: 0.9 % Sodium Chloride Flush 3 ML SYRINGE IVFLUSH ×4 (03:00→22:54)
[2021-07-30] MEDS: methylPREDNISolone Sod Succ 125 MG/2 ML VIAL 60 MG IVPUSH ×3 (03:00→17:15)
[2021-07-30] MEDS: 0.9 % Sodium Chloride 1,000 ML 100 ML IVCONT ×2 (03:03→12:33)
[2021-07-30] MEDS: vancomycin HCL 1,000 MG in 0.9 % Sodium Chloride 250 ML 270 MG IV ×2 (05:01→17:13)
[2021-07-30 06:15] LABS: Hematocrit 36.7 % (42.0-52.0); Hemoglobin 11.6 g/dl (14.0-18.0); Mean Corpuscular HGB Conc 31.6 g/dl (31.0-36.0); Mean Corpuscular Hemoglobin 28.5 pg (27.0-33.0); Mean Corpuscular Volume 90.2 fL (80.0-98.0); Mean Platelet Volume 9.7 fL (9.4-12.4); Platelet Count 306 X10*3/uL (160-400); Red Blood Count 4.07 X10*6/uL (4.60-5.80); Red Cell Distribution Width 13.9 % (11.0-16.0); WBC ABN SCTR FOR CBC 1
[2021-07-30 06:16] LABS: White Blood Count 13.9 X10*3/uL (4.8-10.8)
[2021-07-30 06:34] LABS: Anion Gap 16 (12-20); Blood Urea Nitrogen 14 mg/dL (9-16); Calcium 8.8 mg/dL (8.4-10.2); Carbon Dioxide 20 mmol/L (22-29); Chloride 112 mmol/L (96-108); Creatinine Clr Calc Pharmacy 109.8; Estimated Glomerular Filt Rate > 60; Glucose Random 145 mg/dL (60-115); Potassium 3.8 mmol/L (3.3-5.1); Sodium 144 mmol/L (135-145)
[2021-07-30 06:50] LABS: Band Neutrophils Percent 9 % (3-5); Basophils Abs Manual 0.1 X10*3/uL (0.0-0.2); Basophils Percent Manual 1 % (0-2); Monocytes Absolute Manual 0.3 X10*3/uL (0.1-1.2); Monocytes Percent Manual 2 % (2-11); Neutrophils Absolute Manual 13.5 X10*3/uL (2.0-8.3); Neutrophils Percent Manual 88 % (45-73); RBC Morphology NORMAL
[2021-07-30 06:51] LABS: Giant Platelet PRESENT; Large Platelet PRESENT; Platelet Estimate NORMAL (NORMAL); Platelet Morphology Comment NOTED
[2021-07-30] MEDS: Cholecalciferol (Vitamin D3) 10 MCG TABLET PO (08:32)
[2021-07-30] MEDS: Fenofibrate 160 MG TABLET PO (08:32)
[2021-07-30] MEDS: Docusate Sodium 100 MG CAPSULE 200 MG PO (08:35)
[2021-07-30] MEDS: Lactulose 20 GM/30 ML SOLUTION PO ×3 (08:35→22:48)
[2021-07-30] MEDS: Divalproex Sodium Sprinkles 125 MG CAP.DR.SPR 375 MG PO ×3 (08:36→22:48)
--- NOTE | 2021-07-30 13:34 | MHC.CM.PN ---
PT IS A LTC RESIDENT OF [facility]. PTS LEGAL GUARDIAN IS BLAKE LUONG ([phone]) A VM WAS LEFT FOR MR LUONG INFORMING HIM OF PTS ADMISSION AND MEDICARE RIGHTS A COPY OF PTS IMM (07/30/21) WAS SENT TO [facility] CURRENT DC PLAN IS RETURN TO [facility]
--- NOTE | 2021-07-30 14:54 | PC.NURSE ---
report given to imc rn
--- NOTE | 2021-07-30 15:14 | HO.PM.IMPN ---
Subjective Subjective Date of Service: 07/30/21 Review of Systems Follow up Pneumonia Denied pain, nausea, vomiting, diarrhea sleeping in bed All other systems are reviewed and are negative Physical Exam Vital Signs: Vital Signs: Last Vital Signs Temp 97.8 F 07/30/21 14:47 Pulse 89 07/30/21 14:47 Resp 18 07/30/21 14:47 BP 125/62 07/30/21 14:47 Pulse Ox 98 07/30/21 14:47 Oxygen Flow Rate 2 07/29/21 10:37 Body Mass Index 28.2 Appearing in no acute distress lung sounds are clear to auscultation heart regular rate rhythm, clear S1, S2 positive bowel sounds, abdomen is soft, nontender neuro patient is alert x3, no focal deficits Objective Data Active Medications Acetaminophen (Acetaminophen 325 Mg Tablet) 650 mg PO Q4H PRN PRN Reason: Fever Or Pain Last Admin: 07/29/21 20:59 Dose: 650 mg Documented by: GOMEZ Divalproex Sodium (Divalproex Sodium Sprinkles 125 Mg ) 375 mg PO TID [facility] Last Admin: 07/30/21 14:47 Dose: 375 mg Documented by: AUGUSTINA Docusate Sodium (Docusate Sodium 100 Mg Capsule) 200 mg PO DAILY [facility] Last Admin: 07/30/21 08:35 Dose: 200 mg Documented by: AUGUSTINA Enoxaparin Sodium (Enoxaparin Sodium 40 Mg/0.4 Ml Syringe) 40 mg SUBCUT Q24H [facility] Last Admin: 07/29/21 17:08 Dose: 40 mg Documented by: JESSICA Fenofibrate (Fenofibrate 160 Mg Tablet) 160 mg PO DAILY [facility] Last Admin: 07/30/21 08:32 Dose: 160 mg Documented by: AUGUSTINA Sodium Chloride (Ns) 1,000 mls @ 100 mls/hr IVCONT .Q10H [facility] Last Admin: 07/30/21 12:33 Dose: 100 mls/hr Documented by: CLAUDIA Piperacillin Sod/Tazobactam (Sod 3.375 gm/ Sodium Chloride) 50 mls @ 100 mls/hr IV Q6H [facility] Last Infusion: 07/30/21 14:53 Dose: 0 mls/hr Documented by: HO.BAILEA Vancomycin HCl 1,000 mg/ (Sodium Chloride) 270 mls @ 270 mls/hr IV Q12H [facility] Last Infusion: 07/30/21 06:19 Dose: 0 mls/hr Documented by: LISA Lactulose (Lactulose 20 Gm/30 Ml Solution) 20 gm PO TID [facility] Last Admin: 07/30/21 14:47 Dose: 20 gm Documented by: AUGUSTINA Methylprednisolone Sodium Succinate (Methylprednisolone Sod Succ 125 Mg/2 Ml Vial) 60 mg IVPUSH Q8H [facility] Last Admin: 07/30/21 08:30 Dose: 60 mg Documented by: AUGUSTINA Nicotine (Nicotine 7 Mg Patch.Td24) 7 mg TRANSDERMA Q24H [facility] Last Admin: 07/29/21 19:14 Dose: 7 mg Documented by: JESSICA Pharmacy Consult (Consult Rx Perform Med Rec) 1 each MISCELLANE ONCE PRN PRN Reason: Consult order Pharmacy Consult (Consult Rx Vancomycin Dosing) 1 each MISCELLANE DAILY PRN PRN Reason: Consult order Risperidone (Risperidone 1 Mg Tablet) 1 mg PO BEDTIME [facility] Last Admin: 07/29/21 20:59 Dose: 1 mg Documented by: GOMEZ Senna (Sennosides 8.6 Mg Tablet) 8.6 mg PO BEDTIME PRN PRN Reason: Constipation Sodium Chloride (0.9 % Sodium Chloride Flush 3 Ml Syringe) 3 ml IVFLUSH QSHIFT [facility] Last Admin: 07/30/21 08:30 Dose: 3 ml Documented by: AUGUSTINA Vitamin D (Cholecalciferol (Vitamin D3) 10 Mcg Tablet) 10 mcg PO DAILY [facility] Last Admin: 07/30/21 08:32 Dose: 10 mcg Documented by: AUGUSTINA Labs CBC & Chem 7: 07/30/21 05:56 07/30/21 05:56 Labs: Laboratory Results - last 24 hr 07/29/21 07/30/21 07/30/21 17:57 05:56 05:56 MCV 90.2 MCH 28.5 MCHC 31.6 RDW 13.9 Plt Count 306 MPV 9.7 Immature Gran % (Auto) Cancelled Neut % (Auto) Cancelled Lymph % (Auto) Cancelled [place] % (Auto) Cancelled Eos % (Auto) Cancelled Baso % (Auto) Cancelled Lymph # (Auto) Cancelled [place] # (Auto) Cancelled Eos # (Auto) Cancelled Baso # (Auto) Cancelled Abs Immat Gran (auto) Cancelled Absolute Neuts (auto) Cancelled Absolute Nucleated RBC 0.000 Nucleated RBC % (auto) 0.0 Neutrophils % (Manual) 88 H Band Neutrophils % 9 H Monocytes % (Manual) 2 Basophils % (Manual) 1 Abs Neuts (Manual) 13.5 H Monocytes # (Manual) 0.3 Basophils # (Manual) 0.1 Platelet Estimate NORMAL Large Platelets PRESENT Giant Platelets PRESENT Plt Morphology Comment NOTED RBC Morphology NORMAL Anion Gap 16 Estim Creat Clear Calc 109.8 Estimated GFR > 60 Random Glucose 145 H Lactic Acid Fup @ 4Hr 3.5 H* Calcium 8.8 D Microbiology Microbiology Results: Microbiology 07/29/21 11:24 Blood Culture - Preliminary Blood - Venous No growth after 24 hours. 07/29/21 11:24 Blood Culture - Preliminary Blood - Venous No growth after 24 hours. 07/29/21 00:00 Urine Culture - Final Urine Catheterized - Mojica Catheter No growth. Assessment and Plan (1) 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: Status: Acute (2) Asthma: Status: Acute (3) Pneumonia: Status: Acute Assessment and Plan: 71-year-old male longstanding resident of [facility] with known left lower lobe mass that has been followed by CT presents with hypoxia and mental status changes.? Seen in emergency room 07/28/21 for hypotension; responded well to volume repletion ( 3 L). Mentation back to baseline.? Return to care 1 at my request.? This a.m. staff? found patient confused and short of breath with low oxygen saturation. upon arrival to agency ER, found to be nonverbal requiring high-flow O2.? He will be admitted for treatment of same Severe sepsis on admission resolved Acute hypoxic respiratory failure secondary to Pneumonia?in backdrop of known?left lower lobe mass Doubt? aspiration given known mass however will treat as hospital-acquired Will treat with vanco/ Zosyn /steroids/ nebs Given overall poor prognosis, will speak to? guardian in a.m. two move?forward on change of code status Asthma. No exacerbation Solu-Medrol Duonebs as needed Dementia unspecified Continue outpatient therapies as tolerated Attending Dr. Miranda Full code Lovenox Quality Stroke Does the patient have a stroke diagnosis?: No VTE Prior VTE?: No VTE Risk Level:: Medical - moderate - high VTE Device Contraindication: N/A - Device Ordered VTE Drug Contraindication: N/A - Med Ordered
[2021-07-30] MEDS: Nicotine 7 MG PATCH.TD24 TRANSDERMA (17:15)
[2021-07-30] MEDS: Enoxaparin Sodium 40 MG/0.4 ML SYRINGE SUBCUT (18:12)
[2021-07-30] MEDS: risperiDONE 1 MG TABLET PO (22:48)
[2021-07-31] VITALS (9 sets, daily range): BP systolic 112–140; BP diastolic 56–66; PULSE 63–104; RESP 15–20; TEMP 36.6–37; O2SAT 90–96
[2021-07-31] MEDS: Piperacillin Sodium/Tazobactam 3.375 GM in 0.9 % Sodium Chloride 50 ML IV ×4 (01:02→17:48)
[2021-07-31] MEDS: methylPREDNISolone Sod Succ 125 MG/2 ML VIAL 60 MG IVPUSH ×3 (01:02→16:03)
[2021-07-31 03:57] LABS: Basophils Absolute Auto 0.1 X10*3/uL (0.0-0.2); Basophils Percent Auto 0.3 % (0-2); Hematocrit 36.9 % (42.0-52.0); Hemoglobin 11.7 g/dl (14.0-18.0); Imm Gran Abs Auto 0.09 X10*3/uL (0.00-0.03); Imm Gran Pct Auto 0.6 % (0.0-0.4); Lymphocytes Absolute Auto 0.6 X10*3/uL (1.2-4.9); Lymphocytes Percent Auto 3.8 % (20-40); MANUAL DIFF FLAG SCAN; Mean Corpuscular HGB Conc 31.7 g/dl (31.0-36.0); Mean Corpuscular Hemoglobin 28.5 pg (27.0-33.0); Mean Corpuscular Volume 89.8 fL (80.0-98.0); Mean Platelet Volume 9.4 fL (9.4-12.4); Monocytes Absolute Auto 0.7 X10*3/uL (0.1-1.2); Monocytes Percent Auto 4.2 % (2-11); Neutrophils Percent Auto 91.1 % (45-73); Platelet Count 374 X10*3/uL (160-400); Red Blood Count 4.11 X10*6/uL (4.60-5.80); Red Cell Distribution Width 13.9 % (11.0-16.0); SCAN SMEAR FLAG 1; White Blood Count 15.4 X10*3/uL (4.8-10.8)
[2021-07-31 04:19] LABS: Anion Gap 13 (12-20); Blood Urea Nitrogen 17 mg/dL (9-16); Calcium 8.7 mg/dL (8.4-10.2); Carbon Dioxide 23 mmol/L (22-29); Chloride 115 mmol/L (96-108); Creatinine Clr Calc Pharmacy 117.2; Estimated Glomerular Filt Rate > 60; Glucose Random 128 mg/dL (60-115); Potassium 3.9 mmol/L (3.3-5.1); Sodium 147 mmol/L (135-145)
[2021-07-31 04:20] LABS: SLIDE REVIEW VERIFIED
[2021-07-31] MEDS: vancomycin HCL 1,000 MG in 0.9 % Sodium Chloride 250 ML 270 MG IV (05:53)
--- NOTE | 2021-07-31 06:45 | HE.PHANOTE ---
Vancomycin Dosing Addendum Vanco trough low 7.0. Increasing dose to 1500 mg q12h for predicted AUC of 467.
[2021-07-31] MEDS: Albuterol/Iprat 2.5/0.5MG 3 ML AMPUL.NEB INHALE ×3 (07:52→19:52)
[2021-07-31] MEDS: Docusate Sodium 100 MG CAPSULE 200 MG PO (09:11)
[2021-07-31] MEDS: Lactulose 20 GM/30 ML SOLUTION PO ×3 (09:11→20:22)
[2021-07-31] MEDS: Fenofibrate 160 MG TABLET PO (09:11)
[2021-07-31] MEDS: Cholecalciferol (Vitamin D3) 10 MCG TABLET PO (09:11)
[2021-07-31] MEDS: Divalproex Sodium Sprinkles 125 MG CAP.DR.SPR 375 MG PO ×3 (09:11→20:22)
[2021-07-31] MEDS: 0.9 % Sodium Chloride 1,000 ML 100 ML IVCONT (09:13)
--- NOTE | 2021-07-31 10:55 | HO.PM.IMPN ---
Subjective Subjective Date of Service: 07/31/21 Review of Systems Follow-up pneumonia Denies pain, shortness of breath, chest pain, nausea, vomiting, diarrhea All other systems are reviewed and are negative Physical Exam Vital Signs: Vital Signs: Last Vital Signs Temp 98.4 F 07/31/21 07:31 Pulse 104 H 07/31/21 07:54 Resp 18 07/31/21 07:31 BP 126/58 L 07/31/21 07:31 Pulse Ox 91 L 07/31/21 07:31 Oxygen Flow Rate 2 07/29/21 10:37 Body Mass Index 28.2 Appearing in no acute distress lung sounds are clear to auscultation heart regular rate rhythm, clear S1, S2 positive bowel sounds, abdomen is soft, nontender neuro patient is alert x3, no focal deficits Objective Data Active Medications Acetaminophen (Acetaminophen 325 Mg Tablet) 650 mg PO Q4H PRN PRN Reason: Fever Or Pain Last Admin: 07/29/21 20:59 Dose: 650 mg Documented by: GOMEZ Albuterol/Ipratropium (Albuterol/Iprat 2.5/0.5mg 3 Ml Ampul.Neb) 3 ml INHALE RQ4H WHILE AWAKE [facility] Last Admin: 07/31/21 07:52 Dose: 3 ml Documented by: ARTUR Divalproex Sodium (Divalproex Sodium Sprinkles 125 Mg ) 375 mg PO TID [facility] Last Admin: 07/31/21 09:11 Dose: 375 mg Documented by: MISAEL Docusate Sodium (Docusate Sodium 100 Mg Capsule) 200 mg PO DAILY [facility] Last Admin: 07/31/21 09:11 Dose: 200 mg Documented by: MISAEL Enoxaparin Sodium (Enoxaparin Sodium 40 Mg/0.4 Ml Syringe) 40 mg SUBCUT Q24H [facility] Last Admin: 07/30/21 18:12 Dose: 40 mg Documented by: CHANDAN Fenofibrate (Fenofibrate 160 Mg Tablet) 160 mg PO DAILY [facility] Last Admin: 07/31/21 09:11 Dose: 160 mg Documented by: MISAEL Sodium Chloride (Ns) 1,000 mls @ 100 mls/hr IVCONT .Q10H [facility] Last Admin: 07/31/21 09:13 Dose: 100 mls/hr Documented by: MISAEL Piperacillin Sod/Tazobactam (Sod 3.375 gm/ Sodium Chloride) 50 mls @ 100 mls/hr IV Q6H [facility] Last Infusion: 07/31/21 08:26 Dose: 0 mls/hr Documented by: MISAEL Vancomycin HCl 1,500 mg/ (Sodium Chloride) 500 mls @ 333.333 mls/hr IV Q12H [facility] Lactulose (Lactulose 20 Gm/30 Ml Solution) 20 gm PO TID [facility] Last Admin: 07/31/21 09:11 Dose: 20 gm Documented by: MISAEL Methylprednisolone Sodium Succinate (Methylprednisolone Sod Succ 125 Mg/2 Ml Vial) 60 mg IVPUSH Q8H [facility] Last Admin: 07/31/21 09:10 Dose: 60 mg Documented by: MISAEL Nicotine (Nicotine 7 Mg Patch.Td24) 7 mg TRANSDERMA Q24H [facility] Last Admin: 07/30/21 17:15 Dose: 7 mg Documented by: CHANDAN Pharmacy Consult (Consult Rx Perform Med Rec) 1 each MISCELLANE ONCE PRN PRN Reason: Consult order Pharmacy Consult (Consult Rx Vancomycin Dosing) 1 each MISCELLANE DAILY PRN PRN Reason: Consult order Risperidone (Risperidone 1 Mg Tablet) 1 mg PO BEDTIME [facility] Last Admin: 07/30/21 22:48 Dose: 1 mg Documented by: DEANNE Senna (Sennosides 8.6 Mg Tablet) 8.6 mg PO BEDTIME PRN PRN Reason: Constipation Sodium Chloride (0.9 % Sodium Chloride Flush 3 Ml Syringe) 3 ml IVFLUSH QSHIFT [facility] Last Admin: 07/31/21 09:11 Dose: Not Given Documented by: MISAEL Non-Admin Reason: IV Running Vitamin D (Cholecalciferol (Vitamin D3) 10 Mcg Tablet) 10 mcg PO DAILY [facility] Last Admin: 07/31/21 09:11 Dose: 10 mcg Documented by: MISAEL Labs CBC & Chem 7: 07/31/21 03:51 07/31/21 03:51 Labs: Laboratory Results - last 24 hr 07/31/21 07/31/21 07/31/21 03:51 03:51 03:51 MCV 89.8 MCH 28.5 MCHC 31.7 RDW 13.9 Plt Count 374 MPV 9.4 Immature Gran % (Auto) 0.6 H Neut % (Auto) 91.1 H Lymph % (Auto) 3.8 L [place] % (Auto) 4.2 Eos % (Auto) 0.0 Baso % (Auto) 0.3 Lymph # (Auto) 0.6 L [place] # (Auto) 0.7 Eos # (Auto) 0.0 Baso # (Auto) 0.1 Abs Immat Gran (auto) 0.09 H Absolute Neuts (auto) 14.0 H Absolute Nucleated RBC 0.000 Nucleated RBC % (auto) 0.0 Smear Tech's Comments VERIFIED Anion Gap 13 Estim Creat Clear Calc 117.2 Estimated GFR > 60 Random Glucose 128 H Calcium 8.7 Vancomycin Trough 7.0 L Microbiology Microbiology Results: Microbiology 07/29/21 11:24 Blood Culture - Preliminary Blood - Venous No growth after 24 hours. 07/29/21 11:24 Blood Culture - Preliminary Blood - Venous No growth after 24 hours. 07/29/21 00:00 Urine Culture - Final Urine Catheterized - Mojica Catheter No growth. Assessment and Plan (1) Hypernatremia: Status: Acute (2) 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: Status: Acute (3) Asthma: Status: Acute (4) Dementia: Status: Acute (5) Pneumonia: Status: Acute Assessment and Plan: 71-year-old male longstanding resident of [facility] with known left lower lobe mass that has been followed by CT presents with hypoxia and mental status changes.? Seen in emergency room 07/28/21 for hypotension; responded well to volume repletion ( 3 L). Mentation back to baseline.? Return to care 1 at my request.? This a.m. staff? found patient confused and short of breath with low oxygen saturation. upon arrival to agency ER, found to be nonverbal requiring high-flow O2.? He will be admitted for treatment of same Hypernatremia. likely from IV fluids stopped NS follow BMP Severe sepsis on admission resolved Acute hypoxic respiratory failure secondary to Pneumonia?in backdrop of known?left lower lobe mass Doubt? aspiration given known mass however will treat as hospital-acquired Will treat with vanco/ Zosyn /steroids/ nebs Asthma.? No exacerbation Solu-Medrol Duonebs as needed Dementia unspecified Continue outpatient therapies as tolerated DISPO back to [facility] when medically stable, possibly tomorrow Attending Dr. Miranda Full code [facility] Stroke Does the patient have a stroke diagnosis?: No VTE Prior VTE?: No VTE Risk Level:: Medical - moderate - high VTE Device Contraindication: N/A - Device Ordered VTE Drug Contraindication: N/A - Med Ordered
--- NOTE | 2021-07-31 14:52 | PM.DS ---
DS: Providers Provider Date of Service: 08/01/21 <Mushtaq Miranda MD - Last Filed: 08/01/21 11:43> Date of admission: 07/29/21 15:45 <Fe Jones NP - Last Filed: 07/31/21 14:54> Primary care physician: Praful Silva DO <Fe Jones NP - Last Filed: 07/31/21 14:54> DS: Diagnosis Discharge Diagnosis (1) Acute respiratory failure with hypoxia: Status: Acute <Fe Jones NP - Last Filed: 07/31/21 14:54> (2) Pneumonia: Status: Acute <Fe Jones NP - Last Filed: 07/31/21 14:54> (3) Acute asthma exacerbation: Status: Acute <Fe Jones NP - Last Filed: 07/31/21 14:54> (4) Hypernatremia: Status: Acute <Fe Jones NP - Last Filed: 07/31/21 14:54> (5) 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: Status: Acute <Fe Jones NP - Last Filed: 07/31/21 14:54> (6) Dementia: Status: Acute <Fe Jones NP - Last Filed: 07/31/21 14:54> DS: Summary Hospital Course Hospital Course: HPI as per admitting provider 71 years old male? for evaluation of decreased mental status and decrease oxygen level; patient with history of dementia, COPD, emphysema, coronary artery disease, aspiration pneumonia was seen and evaluated in the emergency department for reported low blood pressure,(07/28/21) .CT of chest demonstrated increase of known LLL mass.Was given 3L of volume with improvement in BP. Decision was made to send pt back to [facility]. This am at [facility]; found to be lethargic and hypoxic. Sent back to [facility] ;? CXR demonstrated dense lower lobe consolidation along with left lower lobe mass.? He is currently on high-flow oxygen satting 90%.? He is no longer verbally responsive.? Of note, patient is a full code under the guardianship of Chance Car.([phone]). He will be admitted for treatment of a HAP in the backdrop of known lung mass . Hospital Course: Patient was started on IV fluids, IV vancomycin and Zosyn, IV steroids and supplemental oxygen pneumonia in the setting of known lung mass as well as baseline asthma. He had blood cultures drawn which were negative at the time of discharge. Over the course of 72 hours the patient has significant improvement in his symptoms. His oxygen saturation is 94 on room air at the time of discharge. His blood cultures are negative. His leukocytosis is significantly improved and he has remained afebrile for greater than 48 hours from discharge. He will be sent home on 5 more days of oral Augmentin and doxycycline. He will be sent home on a short course of prednisone for 5 more days. Patient's hospital course was complicated by hypernatremia which has resolved with encouragement of oral hydration. He should [facility] facility. In regards to the known Lung mass -- will defer this to the outpatient setting. <Fe Jones NP - Last Filed: 07/31/21 14:54> Time Spent with Patient Time attestation: Total time spent providing and/or coordinating discharge services: <Fe Jones NP - Last Filed: 07/31/21 14:54> Discharge coordination time: Greater than 30 minutes <Mushtaq Miranda MD - Last Filed: 08/01/21 11:43> Quality: Stroke Does the patient have a stroke diagnosis?: No <Mushtaq Miranda MD - Last Filed: 08/01/21 11:43> Physical Exam Vital Signs: Vital Signs: Last Vital Signs Temp 97.9 F 07/31/21 11:24 Pulse 74 07/31/21 11:24 Resp 20 07/31/21 11:24 BP 130/66 07/31/21 11:24 Pulse Ox 94 07/31/21 11:24 Oxygen Flow Rate 2 07/29/21 10:37 Body Mass Index 28.2 <Fe Jones NP - Last Filed: 07/31/21 14:54> Const: Other: General - no acute distress, appears comfortable Cardiovascular - regular rate and rhythm, S1-S2 Lungs - normal respiratory effort, clear to auscultation bilaterally, no wheezing Abdomen - soft, nontender, no rebound or guarding Extremities - no edema bilaterally Neuro - awake and alert, no focal deficits <Mushtaq Miranda MD - Last Filed: 08/01/21 11:43> DS: Data Data Completed and Pending Labs on day of discharge: Laboratory Results - last 24 hr 07/31/21 07/31/21 07/31/21 03:51 03:51 03:51 WBC 15.4 H RBC 4.11 L Hgb 11.7 L Hct 36.9 L MCV 89.8 MCH 28.5 MCHC 31.7 RDW 13.9 Plt Count 374 MPV 9.4 Immature Gran % (Auto) 0.6 H Neut % (Auto) 91.1 H Lymph % (Auto) 3.8 L [place] % (Auto) 4.2 Eos % (Auto) 0.0 Baso % (Auto) 0.3 Lymph # (Auto) 0.6 L [place] # (Auto) 0.7 Eos # (Auto) 0.0 Baso # (Auto) 0.1 Abs Immat Gran (auto) 0.09 H Absolute Neuts (auto) 14.0 H Absolute Nucleated RBC 0.000 Nucleated RBC % (auto) 0.0 Smear Tech's Comments VERIFIED Sodium 147 H Potassium 3.9 Chloride 115 H Carbon Dioxide 23 Anion Gap 13 BUN 17 H Creatinine 0.74 Estim Creat Clear Calc 117.2 Estimated GFR > 60 Random Glucose 128 H Calcium 8.7 Vancomycin Trough 7.0 L Preliminary micro results at discharge 07/29/21 11:24 Blood Culture - Preliminary Blood - Venous No growth after 48 hours. 07/29/21 11:24 Blood Culture - Preliminary Blood - Venous No growth after 48 hours. <Fe Jones NP - Last Filed: 07/31/21 14:54> Discharge Plan Discharge Patient Disposition: [facility] <Fe Jones NP - Last Filed: 07/31/21 14:54> Discharge Diagnosis: HCAP Hypernatremia Acute hypoxic respiratory failure <Fe Jones NP - Last Filed: 07/31/21 14:54> HCAP Hypernatremia Acute hypoxic respiratory failure <Mushtaq Miranda MD - Last Filed: 08/01/21 11:43> Referrals: Praful Silva DO [Primary Care Provider] - 1 Week <Fe Jones NP - Last Filed: 07/31/21 14:54> Discharge Medications: New amoxicillin-pot clavulanate [Augmentin] 875-125 mg tablet 1 tab PO BID Qty: 10 RF: 0 doxycycline hyclate 100 mg capsule 100 mg PO BID Qty: 10 RF: 0 prednisone 20 mg tablet 40 mg PO DAILY Qty: 10 RF: 0 Continued divalproex 125 mg capsule, delayed rel sprinkle 3 cap PO TID RF: 0 risperidone 1 mg tablet 1 tab PO BEDTIME RF: 0 nicotine 7 mg/24 hr Patch 24 Hour 1 patch TRANSDERMAL Q24H RF: 0 lactulose 10 gram/15 mL solution 30 ml PO TID RF: 0 fenofibrate nanocrystallized 145 mg tablet 1 tab PO DAILY RF: 0 sennosides [senna] 8.6 mg Tablet 8.6 mg PO BEDTIME PRN (Reason: Constipation) RF: 0 acetaminophen 325 mg Tablet 650 mg PO Q4H PRN (Reason: Fever Or Pain) RF: 0 docusate sodium 100 mg Capsule 200 mg PO DAILY RF: 0 clotrimazole [Lotrimin AF (clotrimazole)] 1 % Cream 1 appl TOPICAL DAILY PRN (Reason: FUNGAL IRRITATION) RF: 0 cholecalciferol (vitamin D3) [Vitamin D3] 10 mcg (400 unit) Capsule 10 mcg PO DAILY RF: 0 <Fe Jones NP - Last Filed: 07/31/21 14:54> Discharge Orders: Discharge Order (Routine); Ordered 08/01/21 Ordered By: Mushtaq Miranda <Fe Jones NP - Last Filed: 07/31/21 14:54> Diet: advance to usual diet <Fe Jones NP - Last Filed: 07/31/21 14:54> advance to usual diet <Mushtaq Miranda MD - Last Filed: 08/01/21 11:43> Activity on Discharge: As tolerated <Fe Jones NP - Last Filed: 07/31/21 14:54> As tolerated <Mushtaq Miranda MD - Last Filed: 08/01/21 11:43> Stand Alone Forms: Patient Portal Discharge page <Fe Jones NP - Last Filed: 07/31/21 14:54> Care Plan Goals: resolution pneumonia symptoms <Fe Jones NP - Last Filed: 07/31/21 14:54> Health Concerns: HCAP Hypernatremia Acute hypoxic respiratory failure <Fe Jones NP - Last Filed: 07/31/21 14:54> Plan of Treatment: even diagnosed with healthcare associated pneumonia. He will return home with Ceftin and azithromycin, please take as prescribed <Fe Jones NP - Last Filed: 07/31/21 14:54> Assessment: see discharge summary <Fe Jones NP - Last Filed: 07/31/21 14:54>
[2021-07-31 15:35] LABS: Anion Gap 13 (12-20); Blood Urea Nitrogen 19 mg/dL (9-16); Calcium 8.8 mg/dL (8.4-10.2); Carbon Dioxide 23 mmol/L (22-29); Chloride 113 mmol/L (96-108); Creatinine Clr Calc Pharmacy 107.1; Estimated Glomerular Filt Rate > 60; Glucose Random 181 mg/dL (60-115); Potassium 3.8 mmol/L (3.3-5.1); Sodium 145 mmol/L (135-145)
[2021-07-31] MEDS: 0.9 % Sodium Chloride Flush 3 ML SYRINGE IVFLUSH (16:03)
[2021-07-31] MEDS: vancomycin HCL 1,500 MG in 0.9 % Sodium Chloride 500 ML 333.33 MG IV (16:03)
[2021-07-31] MEDS: Nicotine 7 MG PATCH.TD24 TRANSDERMA (16:04)
[2021-07-31] MEDS: Enoxaparin Sodium 40 MG/0.4 ML SYRINGE SUBCUT (17:48)
[2021-07-31] MEDS: risperiDONE 1 MG TABLET PO (20:22)
[2021-08-01] MEDS: methylPREDNISolone Sod Succ 125 MG/2 ML VIAL 60 MG IVPUSH ×2 (00:56→08:25)
[2021-08-01] MEDS: Piperacillin Sodium/Tazobactam 3.375 GM in 0.9 % Sodium Chloride 50 ML IV ×2 (00:56→06:29)
[2021-08-01] MEDS: 0.9 % Sodium Chloride Flush 3 ML SYRINGE IVFLUSH ×2 (00:57→08:27)
[2021-08-01 03:34] VITALS: BP 128/67; PULSE 62; RESP 20; TEMP 36.8; O2SAT 90
[2021-08-01] MEDS: vancomycin HCL 1,500 MG in 0.9 % Sodium Chloride 500 ML 333.33 MG IV (04:44)
[2021-08-01 06:50] LABS: MANUAL DIFF FLAG NO
[2021-08-01 07:05] LABS: Basophils Percent Auto 0.3 % (0-2); Hematocrit 36.3 % (42.0-52.0); Hemoglobin 11.5 g/dl (14.0-18.0); Imm Gran Abs Auto 0.21 X10*3/uL (0.00-0.03); Imm Gran Pct Auto 1.9 % (0.0-0.4); Lymphocytes Absolute Auto 0.7 X10*3/uL (1.2-4.9); Lymphocytes Percent Auto 6.4 % (20-40); Mean Corpuscular HGB Conc 31.7 g/dl (31.0-36.0); Mean Corpuscular Hemoglobin 28.3 pg (27.0-33.0); Mean Corpuscular Volume 89.2 fL (80.0-98.0); Mean Platelet Volume 9.7 fL (9.4-12.4); Monocytes Absolute Auto 0.4 X10*3/uL (0.1-1.2); Monocytes Percent Auto 3.7 % (2-11); Neutrophils Absolute Auto 9.8 x10*3/uL (2.0-8.3); Neutrophils Percent Auto 87.7 % (45-73); Platelet Count 363 X10*3/uL (160-400); Red Blood Count 4.07 X10*6/uL (4.60-5.80); White Blood Count 11.2 X10*3/uL (4.8-10.8)
[2021-08-01 07:20] VITALS: BP 135/63; PULSE 70; RESP 20; TEMP 36.5; O2SAT 90
[2021-08-01 07:24] LABS: Anion Gap 12 (12-20); Blood Urea Nitrogen 18 mg/dL (9-16); Calcium 8.6 mg/dL (8.4-10.2); Carbon Dioxide 23 mmol/L (22-29); Chloride 110 mmol/L (96-108); Creatinine Clr Calc Pharmacy 118.8; Estimated Glomerular Filt Rate > 60; Glucose Random 139 mg/dL (60-115); Sodium 141 mmol/L (135-145)
[2021-08-01] MEDS: Albuterol/Iprat 2.5/0.5MG 3 ML AMPUL.NEB INHALE ×2 (07:53→11:44)
[2021-08-01] MEDS: Lactulose 20 GM/30 ML SOLUTION PO (08:25)
[2021-08-01] MEDS: Fenofibrate 160 MG TABLET PO (08:26)
[2021-08-01] MEDS: Divalproex Sodium Sprinkles 125 MG CAP.DR.SPR 375 MG PO (08:26)
[2021-08-01] MEDS: Docusate Sodium 100 MG CAPSULE 200 MG PO (08:26)
[2021-08-01] MEDS: Cholecalciferol (Vitamin D3) 10 MCG TABLET PO (08:27)
[2021-08-01 10:55] VITALS: BP 165/75; PULSE 64; RESP 18; TEMP 36.7; O2SAT 94
--- NOTE | 2021-08-01 12:16 | MHC.CM.PN ---
Addendum entered by Lolly Gann 08/01/21 13:41: A negative covid test has been sent to the facility thru [employer]. Confirmed acceptance from DON via phone. Spoke with Katelynn Zendejas. Original Note: IMM 08/01/21 Male 71 DX PNA is discharged today. He will return to LTC @ [facility]. The facility has been notified of discharge ([facility]) Discharge information has been sent via [employer]. A rapid Covid test has been ordered, collected and sent to the Lab. The result will be sent prior to discharge. Transportation has been booked for 2pm thid afternoon. Chance Osullivan, guardian has been notified via [employer].
[2021-08-01 12:43] LABS: COVID-19 Test Negative (Negative)
== END 2021-08-01 14:15 | disposition home or self-care (01) | DRG 193 ==
LOC: HO.ED 12:46 → HO.EDOVER 16:16 → HO.IMC 07-30 13:45
PROVIDERS: Nurse Practitioner Acute Care; Admitting Provider Hospitalist; Emergency Provider Emergency Medicine; PCP Hospitalist; Visit Provider Physician Assistant Medical
DX: J18.9 Pneumonia, unspecified organism (principal); J96.01 Acute respiratory failure with hypoxia; E87.0 Hyperosmolality and hypernatremia; J45.909 Unspecified asthma, uncomplicated; I25.10 Atherosclerotic heart disease of native coronary artery without angina pectoris; F03.90 Unspecified dementia, unspecified severity, without behavioral disturbance, psychotic disturbance, mood disturbance, and anxiety; R91.8 Other nonspecific abnormal finding of lung field; Z20.822 Contact with and (suspected) exposure to COVID-19; Z79.899 Other long term (current) drug therapy
CPT/HCPCS: 36415; 70450; 71045; 71250; 74176; 80048; 80076; 80164; 80202; 80307; 81001; 81003; 82077; 82140; 82803; 82947; 83605; 83690; 83735; 83880; 84443; 84484; 85007; 85025; 85027; 85610; 85730; 87040; 87086; 87635; 93005; 94640; 96361; 96374; 96375; 96376; 99284; 99285; J0456; J1650; J1940; J2405; J2543; J2930; J3370

== ENCOUNTER 2021-10-14 09:53 | Observation (INO) | payer MEDICARE, MEDICAID, SELFPAY ==
--- NOTE | ~2021-10-14 | CT_ITS ---
EXAMINATION: CT CHEST WITH CONTRAST CLINICAL INFORMATION: Follow-up chest x-ray to rule out mass. COMPARISON: Prior studies including the 08/13/2022 chest x-ray and the older 07/29/2021 chest x-ray as well as the 07/28/2021 CT scan's. TECHNIQUE: Multidetector volumetric CT imaging of the chest was obtained after the administration of 65 mL of Omnipaque 350 intravenous contrast without immediate adverse reactions. Axial MIP volume rendering provided. Sagittal and coronal reformatted images were obtained. This CT examination was performed using dose optimization techniques as appropriate, variously including the following: *Automated exposure control *Adjustment of mA and/or kV according to patient size (this includes techniques or standardized protocols for targeted exams where dose is matched to indication/reason for exam; i.e. extremities or head) *Use of iterative reconstruction technique DLP: 308 mGy-cm FINDINGS: HOME APPRAISER: Again left-sided pleural effusion with a left basilar opacity is again noted with mild shift of mediastinal structures. LUNGS: Centrilobular emphysematous changes are again noted seen more set the visualized lung apices. There is minimal dependent atelectasis on the right. There is more significant consolidation to the left lung with complete opacification of the left lower lobe and milder dependent changes in the left upper lobe. The consolidated left lower lung is unable to be from the large mediastinal mass that has been noted on prior studies with a mediastinal mass tract abutting and inseparable from the medial aspect of the consolidated left lung. I'm uncertain where the mass ends and the consolidated lung begins with this appearance. This has significantly progressed from the 07/28/2021 study. MEDIASTINUM: There is a large ill-defined mass lesion in the lower mediastinum with epicenter in the region of the distal esophagus extending from the subcarinal location to the gastroesophageal junction. Where the esophagus is able to be delineated in this area does appear to markedly thickened with some air-fluid level in the distended esophagus proximal to this area consistent with esophageal obstruction. Again the mass lesion is inseparable from the adjacent consolidated left lower lung but has increased in size and conspicuity from the prior study. The mass measures approximately 10 cm in anterior to posterior dimension and at least 11 cm in a transverse dimension. There are smaller mediastinal lymph nodes abutting the larger mass. Vascular calcification within the coronary vessels and aorta. There is heterogeneity to the left thyroid lobe incidentally noted in this setting. PLEURA: Moderate-sized left pleural effusion has increased from the prior studies AXILLA: No lymphadenopathy. UPPER ABDOMEN: Again the mass extends into the region of the GE junction of the stomach. Stomach is otherwise decompressed. OSSEOUS STRUCTURES: Unremarkable. CT/CT chest w con IMPRESSION: Large mass lesion in the lower esophagus with epicenter in the region of the distal esophagus however this is now inseparable from the directly adjacent consolidated left lower lobe. The mass does appear to be increased in size from the 07/28/2021 study although the margins are somewhat difficult to define. There is obstructive changes to the esophagus proximal to the mass. There is worsened consolidation/airspace disease in the left lung compared to the prior studies as well. Fleischner guidelines were followed.
--- NOTE | ~2021-10-14 | XR_ITS ---
EXAMINATION: XR CHEST CLINICAL INFORMATION: Possible pneumonia. COMPARISON: Chest 07/29/2021 TECHNIQUE: Frontal view of the chest was obtained. FINDINGS: The right lung is expanded and clear. There is moderate opacification of left lung base from increase pleural effusion and underlying atelectasis/infiltrate. Heart size is likely normal. Pulmonary vascularity is normal. No gross bony abnormality. XR/XR chest 1V IMPRESSION: Increased left pleural effusion with underlying atelectasis/infiltrate.
[2021-10-14 10:19] VITALS: BP 112/42; PULSE 74; RESP 20; TEMP 36.6; O2SAT 91; O2SAT 92; BMI 24.7
--- NOTE | 2021-10-14 10:23 | ED_ITS ---
HPI - General Adult General Chief complaint: General Medical Stated complaint: FLUID ON LUNGS IN XRAY READ PER SNF Time Seen by Provider: 10/14/21 10:06 Source: EMS Mode of arrival: EMS Limitations: altered mental status ( chronic TBI) History of Present Illness HPI narrative: patient comes to the emergency room via EMS from [facility]. According to the staff, they did chest x-ray this morning and it showed possible fluid in the lungs. Patient has no fever, no chills. patient is awake and alert but cannot give any significant history. Patient states that he is feeling well Related Data Home Medications Medication Instructions Recorded Confirmed divalproex 125 mg capsule,delayed 3 cap PO TID 07/28/21 07/29/21 release sprinkle fenofibrate nanocrystallized 145 1 tab PO DAILY 07/28/21 07/29/21 mg tablet lactulose 10 gram/15 mL oral 30 ml PO TID 07/28/21 07/29/21 solution nicotine 7 mg/24 hr daily 1 patch TRANSDERMAL Q24H 07/28/21 07/29/21 transdermal patch risperidone 1 mg tablet 1 tab PO BEDTIME 07/28/21 07/29/21 acetaminophen 325 mg tablet 650 mg PO Q4H PRN 07/29/21 07/29/21 cholecalciferol (vitamin D3) 10 10 mcg PO DAILY 07/29/21 07/29/21 mcg (400 unit) capsule (Vitamin D3) clotrimazole 1 % topical cream 1 appl TOPICAL DAILY PRN 07/29/21 07/29/21 (Lotrimin AF (clotrimazole)) docusate sodium 100 mg capsule 200 mg PO DAILY 07/29/21 07/29/21 sennosides 8.6 mg tablet (senna) 8.6 mg PO BEDTIME PRN 07/29/21 07/29/21 Previous Rx's Medication Instructions Recorded amoxicillin 875 mg-potassium 1 tab PO BID #10 tab 08/01/21 clavulanate 125 mg tablet (Augmentin) doxycycline hyclate 100 mg capsule 100 mg PO BID #10 cap 08/01/21 prednisone 20 mg tablet 40 mg PO DAILY #10 tab 08/01/21 Allergies Allergy/AdvReac Type Severity Reaction Status Date / Time No Known Allergies Allergy Verified 07/18/20 20:20 [No Known Allergies*] Review of Systems Review of Systems: Yes Unobtainable due to mental condition [facility] Past Medical History Medical History Asthma Behavior disorder Cataract COPD (chronic obstructive pulmonary disease) Dementia Diabetes Dysphagia Emphysema lung ETOH abuse Gastroenteritis Hernia Hyperlipemia 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 Social History Social History Household Members: Unknown / Unable to assess Housing: Other Unable to assess alcohol history related to: Unknown Alcohol intake: unknown Patient Tobacco Use Status: Tobacco use Unknown Advance Directives: No Advance Directives Information Provided: No service: No Current occupational status: disabled Physical Exam ED Vital Signs: Vital Signs - 24 hr 10/14/21 10:19 10/14/21 12:37 10/14/21 12:57 Temperature 97.9 F 99.4 F Pulse Rate 74 71 Respiratory Rate 20 18 Blood Pressure 112/42 L 111/50 L Pulse Oximetry 91 L 94 BMI result Body Mass Index 24.7 Const Other: Appearance: Alert. no acute distress Eyes: Pupils equal, round and reactive to light. ENT: Pharynx normal. Neck: Normal inspection. Neck supple. No lymph nodes noted. No crepitus CVS: Normal heart rate and rhythm. Pulses normal. Normal S1 and S2 Respiratory: No respiratory distress. lung sounds clear, no wheezing, no crackles Abdomen: Soft and nontender. No rigidity. No distention. Skin: Skin warm and dry. Normal skin color. Normal skin turgor. Extremities: trace pitting edema in both lower extremities Neuro:No motor deficit. No sensory deficit. Moving all extermities. No slurred speech. Course Course Course Narrative: patient remains stable, oxygen saturation 94% on room air, white blood cell count and lactic acid within normal limits. Sepsis is not suspected, chest x- ray shows a left pleural effusion. Patient will be given empiric antibiotics. Today we do not have Interventional Radiology available, up a thoracentesis can be performed tomorrow per Dr. Hager Patient is known to have lung mass. CT scan pending. At this time patient is stable, on room air. I discussed the patient with nurse practitioner Jim, patient being admitted, patient will need a thoracentesis tomorrow. Medical Decision Making Lab Data Result diagrams: 10/14/21 10:45 10/14/21 10:45 Labs: Lab Results 10/14/21 10/14/21 10/14/21 Range/Units 10:45 10:45 10:45 WBC 7.3 (4.8-10.8) X10*3/uL RBC 4.21 L (4.60-5.80) X10*6/uL Hgb 10.7 L (14.0-18.0) g/dl Hct 35.0 L (42.0-52.0) % MCV 83.1 (80.0-98.0) fL MCH 25.4 L (27.0-33.0) pg MCHC 30.6 L (31.0-36.0) g/dl RDW 15.2 (11.0-16.0) % Plt Count 339 (160-400) X10*3/uL MPV 9.4 (9.4-12.4) fL Immature Gran % (Auto) 0.4 (0.0-0.4) % Neut % (Auto) 70.4 (45-73) % Lymph % (Auto) 15.0 L (20-40) % [place] % (Auto) 11.2 H (2-11) % Eos % (Auto) 2.5 (0-4) % Baso % (Auto) 0.5 (0-2) % Lymph # (Auto) 1.1 L (1.2-4.9) X10*3/uL [place] # (Auto) 0.8 (0.1-1.2) X10*3/uL Eos # (Auto) 0.2 (0.0-0.4) X10*3/uL Baso # (Auto) 0.0 (0.0-0.2) X10*3/uL Abs Immat Gran (auto) 0.03 (0.00-0.03) X10*3/uL Absolute Neuts (auto) 5.1 (2.0-8.3) x10*3/uL Absolute Nucleated RBC 0.000 (0.0-0.012) X10*3/uL Nucleated RBC % (auto) 0.0 (0.0-0.2) /100WBC PT 14.7 H (9.9-13.0) SEC INR 1.3 H (0.9-1.1) Sodium 144 (135-145) mmol/L Potassium 3.9 (3.3-5.1) mmol/L Chloride 103 (96-108) mmol/L Carbon Dioxide 32 H (22-29) mmol/L Anion Gap 13 (12-20) BUN 13 (9-16) mg/dL Creatinine 0.72 (0.5-1.4) mg/dL Estim Creat Clear Calc 114.1 Estimated GFR > 60 Random Glucose 105 (60-115) mg/dL Lactic Acid (0.5-2.0) mmol/L Calcium 10.7 H D (8.4-10.2) mg/dL Total Bilirubin 0.5 (0.0-1.0) mg/dL Direct Bilirubin 0.2 (0.0-0.5) mg/dL AST 11 (5-37) U/L ALT < 6 (0-40) U/L Alkaline Phosphatase 41 (39-117) U/L B-Natriuretic Peptide (<100) pg/mL Total Protein 6.2 L (6.5-8.0) g/dL Albumin 3.4 L (3.5-5.0) g/dL COVID-19 ([facility]) (Negative) COVID-19 Clin Com 10/14/21 10/14/21 10/14/21 Range/Units 10:45 10:45 10:58 WBC (4.8-10.8) X10*3/uL RBC (4.60-5.80) X10*6/uL Hgb (14.0-18.0) g/dl Hct (42.0-52.0) % MCV (80.0-98.0) fL MCH (27.0-33.0) pg MCHC (31.0-36.0) g/dl RDW (11.0-16.0) % Plt Count (160-400) X10*3/uL MPV (9.4-12.4) fL Immature Gran % (Auto) (0.0-0.4) % Neut % (Auto) (45-73) % Lymph % (Auto) (20-40) % [place] % (Auto) (2-11) % Eos % (Auto) (0-4) % Baso % (Auto) (0-2) % Lymph # (Auto) (1.2-4.9) X10*3/uL [place] # (Auto) (0.1-1.2) X10*3/uL Eos # (Auto) (0.0-0.4) X10*3/uL Baso # (Auto) (0.0-0.2) X10*3/uL Abs Immat Gran (auto) (0.00-0.03) X10*3/uL Absolute Neuts (auto) (2.0-8.3) x10*3/uL Absolute Nucleated RBC (0.0-0.012) X10*3/uL Nucleated RBC % (auto) (0.0-0.2) /100WBC PT (9.9-13.0) SEC INR (0.9-1.1) Sodium (135-145) mmol/L Potassium (3.3-5.1) mmol/L Chloride (96-108) mmol/L Carbon Dioxide (22-29) mmol/L Anion Gap (12-20) BUN (9-16) mg/dL Creatinine (0.5-1.4) mg/dL Estim Creat Clear Calc Estimated GFR Random Glucose (60-115) mg/dL Lactic Acid 1.7 (0.5-2.0) mmol/L Calcium (8.4-10.2) mg/dL Total Bilirubin (0.0-1.0) mg/dL Direct Bilirubin (0.0-0.5) mg/dL AST (5-37) U/L ALT (0-40) U/L Alkaline Phosphatase (39-117) U/L B-Natriuretic Peptide 24 (<100) pg/mL Total Protein (6.5-8.0) g/dL Albumin (3.5-5.0) g/dL COVID-19 ([facility]) Negative (Negative) COVID-19 Clin Com See Note Discharge Plan Discharge Clinical Impression: Pleural effusion Patient Disposition: Admitted As Inpatient
[2021-10-14 10:51] LABS: MANUAL DIFF FLAG NO
[2021-10-14 10:53] LABS: Basophils Percent Auto 0.5 % (0-2); Eosinophils Absolute Auto 0.2 X10*3/uL (0.0-0.4); Eosinophils Percent Auto 2.5 % (0-4); Hemoglobin 10.7 g/dl (14.0-18.0); Imm Gran Abs Auto 0.03 X10*3/uL (0.00-0.03); Imm Gran Pct Auto 0.4 % (0.0-0.4); Lymphocytes Absolute Auto 1.1 X10*3/uL (1.2-4.9); Mean Corpuscular HGB Conc 30.6 g/dl (31.0-36.0); Mean Corpuscular Hemoglobin 25.4 pg (27.0-33.0); Mean Corpuscular Volume 83.1 fL (80.0-98.0); Mean Platelet Volume 9.4 fL (9.4-12.4); Monocytes Absolute Auto 0.8 X10*3/uL (0.1-1.2); Monocytes Percent Auto 11.2 % (2-11); Neutrophils Absolute Auto 5.1 x10*3/uL (2.0-8.3); Neutrophils Percent Auto 70.4 % (45-73); Platelet Count 339 X10*3/uL (160-400); Red Blood Count 4.21 X10*6/uL (4.60-5.80); Red Cell Distribution Width 15.2 % (11.0-16.0); White Blood Count 7.3 X10*3/uL (4.8-10.8)
[2021-10-14 11:03] LABS: INTERNATIONAL NORM RATIO 1.3 (0.9-1.1); Prothrombin Time 14.7 SEC (9.9-13.0)
[2021-10-14 11:05] LABS: Lactic Acid 1.7 mmol/L (0.5-2.0)
[2021-10-14 11:15] LABS: B Type Natriuretic Peptide 24 pg/mL (<100)
[2021-10-14 11:16] LABS: Alanine Aminotransferase < 6 U/L (0-40); Albumin Level 3.4 g/dL (3.5-5.0); Alkaline Phosphatase 41 U/L (39-117); Anion Gap 13 (12-20); Aspartate Amino Transferase 11 U/L (5-37); Bilirubin Direct 0.2 mg/dL (0.0-0.5); Bilirubin Total 0.5 mg/dL (0.0-1.0); Blood Urea Nitrogen 13 mg/dL (9-16); Calcium 10.7 mg/dL (8.4-10.2); Carbon Dioxide 32 mmol/L (22-29); Chloride 103 mmol/L (96-108); Creatinine Clr Calc Pharmacy 114.1; Estimated Glomerular Filt Rate > 60; Glucose Random 105 mg/dL (60-115); Potassium 3.9 mmol/L (3.3-5.1); Sodium 144 mmol/L (135-145); Total Protein 6.2 g/dL (6.5-8.0)
[2021-10-14 11:19] LABS: COVID-19 Test Negative (Negative)
[2021-10-14 12:37] VITALS: BP 111/50; PULSE 71; RESP 18; O2SAT 94
[2021-10-14 12:57] VITALS: TEMP 37.4
[2021-10-14] MEDS: cefTRIAXone sodium 1 GM in 0.9 % Sodium Chloride 50 ML IV (13:06)
--- NOTE | 2021-10-14 13:08 | PC.NURSE ---
pt sleeping but easily arousable, respirations even and unlabored, denies pain but reports feeling some sob, sating at 96% on 2l via nasal cannual, ls diminished on the bases, ns on the monitor
[2021-10-14] MEDS: Azithromycin 500 MG in 0.9 % Sodium Chloride 250 ML 125 MG IV (14:18)
--- NOTE | 2021-10-14 14:39 | P.EN_ITS ---
Event Note Date of Service: 10/14/21 Event Note: History taken from ED physician: patient was sent from [facility]: as per ED physician patient has TBI at baseline chronic, unclear for what reason the chest x-ray was done there and revealed the pleural effusion and subsequently was sent to ED ED spoke to the IR and recommended for IR tap and also found to have lung mass which seems to be known as per discharge summary on 07/31/21: so patient is getting admitted for possible tap pleural tap. CT chest is still pending we will add oncology evaluation just to evaluate lung mass . COVID negative physical exam; ?General - no acute distress, appears comfortable Cardiovascular - regular rate and rhythm, S1-S2 Lungs - air entry seems fine, air entry diminshed left lower lungs no rales or wheezing Abdomen - soft, nontender, no rebound or guarding Extremities - no edema bilaterally Neuro - awake and alert, no focal deficits?, baseline seems like answer only few questions and seems currently at baseline lab imaging reviewed: chest x-ray shows increased pleural effusion on left base. WBC 7.3 BMP seems fine except bodelrine hypercalcemia. assessment plan: patient came with increasing left pleural effusion, known left lower lung mass also probably had baseline atelectasis CT chest -lung mass unable to separate from esophagus mass ,, procalcitonin level added if CT chest shows infiltrate then will start antibiotics, please add incentive spirometry, chest physiotherapy, nebs for atelectasis. Mild borderline hypercalcemia probably related to dehydration give gentle hydration patient will need pleural tap in the morning- also pleural labs including Ph , glucose , ldh , wbc with diff, cultures, cytology oncology evaluation
[2021-10-14] MEDS: iohexoL 350 MG/ML 100 ML INFUS..BTL IV (14:43)
--- NOTE | 2021-10-14 14:44 | PM.IMHP ---
History of Present Illness Date of Service: 10/14/21 Attending physician on admission: Mason Barron Chief Complaint: pleural effusion This is a 71 year old male with history of left lung mass sent to the ED from [facility]. Notes from the facility indicate that he had an outpatient cxr that was concerning for pneumonia so he was send in for evaluation. Lab work was unremarkable, he was noted to have low grade fever. Currently not requiring supplemental oxygen. Imaging showing increasing pleural effusion with possible underlying pneumonia. He was treated with IV antibiotics and the decision was made to admit him for observation and thoracentesis. The patient himself is awake and alert and but answers questions with yes or no answers and does not provide much detail. Review of Systems Review of Systems: Yes all other systems are reviewed and are negative Constitutional: Constitutional: Denies chills and Denies fever(s) Cardiovascular: Cardiovascular: Denies dyspnea Respiratory: Respiratory: Denies cough and Denies dyspnea PMFSH Medical History (Updated 10/14/21 @ 15:05 by NELI Buckley) Asthma Behavior disorder Cataract COPD (chronic obstructive pulmonary disease) Dementia Diabetes Dysphagia Emphysema lung ETOH abuse Gastroenteritis Hernia Hyperlipemia 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 Functional capacity: independent ambulation Pertinent family history: reviewed with patient but he is uable to provide any family history Social History (Updated 10/14/21 @ 14:57 by NELI Buckley) Housing: Group Home Alcohol intake: former Patient Tobacco Use Status: Tobacco use Unknown Advance Directives: No Advance Directives Information Provided: No service: No Current occupational status: disabled Meds Allergies Allergy/AdvReac Type Severity Reaction Status Date / Time No Known Allergies Allergy Verified 07/18/20 20:20 [No Known Allergies*] Active Medications: Current Medications Acetaminophen (Acetaminophen 325 Mg Tablet) 650 mg PO Q6H PRN PRN Reason: Pain, Mild (Pain Scale 1-3) Albuterol/Ipratropium (Albuterol/Iprat 2.5/0.5mg 3 Ml Ampul.Neb) 3 ml INHALE Q4H PRN PRN Reason: Shortness of Breath Dextrose (Dextrose 50 % 25 Gm/50 Ml Syringe) 25 gm IVPUSH Q15M PRN; Protocol PRN Reason: per Hypoglycemia Standing Ord. Docusate Sodium (Docusate Sodium 100 Mg Capsule) 100 mg PO DAILY PRN PRN Reason: Constipation Glucose (Glucose Gel 15 Gm Gel..Gram.) 15 gm PO Q15M PRN; Protocol PRN Reason: per Hypoglycemia Standing Ord. Heparin Sodium (Porcine) (Heparin Sodium,Porcine 5,000 Unit/Ml Vial) 5,000 unit SUBCUT Q12H [facility] Insulin Human Lispro (Insulin Lispro 100 Unit/Ml 3 Ml Vial) 0 unit SUBCUT QIDACHS [facility]; Protocol Iohexol (Iohexol 350 Mg/Ml 100 Ml Infus..Btl) 100 ml IV ONCE ONE Stop: 10/14/21 14:44 Last Admin: 10/14/21 14:43 Dose: 65 ml Documented by: Ondansetron HCl (Ondansetron Hcl 4 Mg/2 Ml Vial) 4 mg IVPUSH Q8H PRN PRN Reason: Nausea and Vomiting Sodium Chloride (0.9 % Sodium Chloride Flush 3 Ml Syringe) 3 ml IVFLUSH QSHIFT [facility] Home Medications Medication Instructions Recorded Confirmed Last Taken Type divalproex 125 mg capsule,delayed 3 cap PO TID 07/28/21 10/14/21 07/28/21 History release sprinkle fenofibrate nanocrystallized 145 1 tab PO DAILY 07/28/21 10/14/21 07/28/21 History mg tablet lactulose 10 gram/15 mL oral 30 ml PO TID 07/28/21 10/14/21 07/28/21 History solution risperidone 1 mg tablet 1 tab PO BEDTIME 07/28/21 10/14/21 07/27/21 History acetaminophen 325 mg tablet 650 mg PO Q4H PRN 07/29/21 10/14/21 Unknown History cholecalciferol (vitamin D3) 10 10 mcg PO DAILY 07/29/21 10/14/21 Unknown History mcg (400 unit) capsule (Vitamin D3) docusate sodium 100 mg capsule 200 mg PO DAILY 07/29/21 10/14/21 Unknown History sennosides 8.6 mg tablet (senna) 8.6 mg PO BEDTIME PRN 07/29/21 10/14/21 Unknown History Physical Exam Vital Signs and Narrative: Vital Signs: Last Vital Signs Temp 99.4 F 10/14/21 12:57 Pulse 71 10/14/21 12:37 Resp 18 10/14/21 12:37 BP 111/50 L 10/14/21 12:37 Pulse Ox 94 10/14/21 12:37 BMI result Body Mass Index 24.7 Const: General: cooperative, comfortable, no acute distress, alert and awake Nutritional Appearance: average body habitus Resp: Other: decreased inspiratory effort left side rhonchi/course breath sounds, dim at base; no wheezing; right lung field fairly clear Effort & Inspection: normal respiratory effort Cardio: Rate: regular rate Heart sounds: S1 normal heart sound present and S2 normal heart sound present GI: Inspection: No distended Palpation (GI): Soft to palpation and nontender Extrem: Other: no significant leg edema Psych: Affect: Blunted affect present Results Labs CBC and Chem 7: 10/14/21 10:45 10/14/21 10:45 Labs: Laboratory Results - last 24 hr 10/14/21 10/14/21 10/14/21 10:45 10:45 10:45 MCV 83.1 MCH 25.4 L MCHC 30.6 L RDW 15.2 Plt Count 339 MPV 9.4 Immature Gran % (Auto) 0.4 Neut % (Auto) 70.4 Lymph % (Auto) 15.0 L [place] % (Auto) 11.2 H Eos % (Auto) 2.5 Baso % (Auto) 0.5 Lymph # (Auto) 1.1 L [place] # (Auto) 0.8 Eos # (Auto) 0.2 Baso # (Auto) 0.0 Abs Immat Gran (auto) 0.03 Absolute Neuts (auto) 5.1 Absolute Nucleated RBC 0.000 Nucleated RBC % (auto) 0.0 PT 14.7 H INR 1.3 H Anion Gap 13 Estim Creat Clear Calc 114.1 Estimated GFR > 60 Random Glucose 105 Lactic Acid Calcium 10.7 H D Total Bilirubin 0.5 Direct Bilirubin 0.2 AST 11 ALT < 6 Alkaline Phosphatase 41 B-Natriuretic Peptide Total Protein 6.2 L Albumin 3.4 L COVID-19 ([facility]) COVID-19 Clin Com 10/14/21 10/14/21 10/14/21 10:45 10:45 10:58 MCV MCH MCHC RDW Plt Count MPV Immature Gran % (Auto) Neut % (Auto) Lymph % (Auto) [place] % (Auto) Eos % (Auto) Baso % (Auto) Lymph # (Auto) [place] # (Auto) Eos # (Auto) Baso # (Auto) Abs Immat Gran (auto) Absolute Neuts (auto) Absolute Nucleated RBC Nucleated RBC % (auto) PT INR Anion Gap Estim Creat Clear Calc Estimated GFR Random Glucose Lactic Acid 1.7 Calcium Total Bilirubin Direct Bilirubin AST ALT Alkaline Phosphatase B-Natriuretic Peptide 24 Total Protein Albumin COVID-19 ([facility]) Negative COVID-19 Clin Com See Note Imaging Radiologist's Impressions: Impressions Chest X-Ray 10/14/21 11:02 IMPRESSION: Increased left pleural effusion with underlying atelectasis/infiltrate. Assessment and Plan (1) Pleural effusion: Status: Acute (2) 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: Status: Acute Plan This is a 71 year old male with history of left lung mass, DM, dementia, COPD, CAD from [facility] sent in with increasing pleural effusion and pneumonia Probable postobstructive pneumonia No sepsis IV zosyn Incentive spirometry prn breathing treatments Left pleural effusion probably malignant in the setting of left lung mass diagnostic thoracentesis ordered for tomorrow left lung mass probably malignancy oncology consult Hypercalcemia gentle IVF trend DM not on meds at baseline SSI, POCs mood/dementia continue depakote, risperidone HLD continue fenofibrate dvt ppx - heparin code status - full code Attending - Dr. Barron Quality Stroke Does the patient have a stroke diagnosis?: No VTE Prior VTE?: No VTE Risk Level:: Medical - moderate - high VTE Device Contraindication: N/A - Device Ordered VTE Drug Contraindication: N/A - Med Ordered
--- NOTE | 2021-10-14 14:54 | PHA.MEDREC ---
Pharmacy Consult ? Medication Reconciliation Pharmacy has completed the medication reconciliation. MED LIST MAR FROM [facility]
[2021-10-14 15:20] VITALS: BP 118/46; PULSE 89; RESP 16; TEMP 36.5; O2SAT 92
[2021-10-14 15:28] LABS: Procalcitonin 0.08 ng/mL
[2021-10-14] MEDS: ondansetron HCL 4 MG/2 ML VIAL IVPUSH (15:57)
[2021-10-14] MEDS: Heparin Sodium,Porcine 5,000 UNIT/ML VIAL 5000 UNIT SUBCUT (15:57)
[2021-10-14] MEDS: Albumin Human 25 % 50 ML 100 ML IV (16:12)
[2021-10-14] MEDS: Lactated Ringers 1,000 ML 80 ML IVCONT (16:21)
--- NOTE | 2021-10-14 16:36 | PC.NURSE ---
Patient awake and alert x 1. Patient denies any pain but has vomited phlegm x 2 medicated with zofran awaiting effect. Placed 2nd iv in right antecubital IV infusing in both arms. tele
[2021-10-14] MEDS: Piperacillin Sodium/Tazobactam 3.375 GM in 0.9 % Sodium Chloride 50 ML IV ×2 (17:48→23:10)
[2021-10-14 18:53] VITALS: BP 119/38; PULSE 81; RESP 18; TEMP 37.3; O2SAT 90
--- NOTE | 2021-10-14 18:53 | PM.HEMONCCN ---
Subjective - Subjective Chief complaint: Consult for: Lung mass. Pleural effusion. Patient: new to practice Consult date: 10/14/21 Requesting Physician: pricila. Primary Care Provider: [facility] Medical Summary: DIAGNOSIS: LUNG MASS. PLEURAL EFFUSION. HPI - Consult Narrative Reason for consult: Consult for: 1. Lung mass. 2. Pleural effusion. Narrative: Richardson Gonzalez is a pleasant 71 year old gentleman, who was referred to the ER from [facility]. The patient himself is awake and alert and but answers questions with yes or no answers and does not provide much detail. He does have history of left lung mass that was diagnosed back in July. He was supposed to have had that worked up as an outpatient. Most recently he had a cxr that was concerning for pneumonia, so he was send in for evaluation. Lab work was unremarkable, he was noted to have low grade fever. Currently not requiring supplemental oxygen. Imaging showing increasing pleural effusion with possible underlying pneumonia. He was started on IV antibiotics Plan is to proceed with thoracentesis. CT scan of his chest revealed: Large mass lesion in the lower esophagus with epicenter in the region of the distal esophagus however this is now inseparable from the directly adjacent consolidated left lower lobe. The mass does appear to be increased in size from the 07/28/2021 study although the margins are somewhat difficult to define. There is obstructive changes to the esophagus proximal to the mass. There is worsened consolidation/airspace disease in the left lung compared to the prior studies as well. Review of Systems: Functional capacity: independent ambulation. Review of Systems: Yes all other systems are reviewed and are negative Constitutional: Constitutional: Denies chills and Denies fever(s) Cardiovascular: Cardiovascular: Denies dyspnea Respiratory: Respiratory: Denies cough and Denies dyspnea [facility] Medical History: Asthma Behavior disorder Cataract COPD (chronic obstructive pulmonary disease) Dementia Diabetes Dysphagia Emphysema lung ETOH abuse Gastroenteritis Hernia Hyperlipemia 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 Review of Systems - Constitutional Reports system reviewed and no additional complaints, except as documented, Reports fatigue, Reports fever(s), Reports lack of energy, Reports malaise, Reports weakness, Reports weight loss - Eyes Reports system reviewed and no additional complaints, except as documented, Denies blurry vision - ENT Reports system reviewed and no additional complaints, except as documented, Reports dizziness - Cardiovascular Reports system reviewed and no additional complaints, except as documented, Reports chest pain, Reports shortness of breath - Respiratory Reports no additional respiratory complaints, Reports cough, Reports dyspnea - Gastrointestinal Reports system reviewed and no additional complaints, except as documented, Reports dyspepsia, Denies abdominal pain - Genitourinary Genitourinary: Reports no additional male genitourinary complaints, Denies blood in urine - Musculoskeletal Reports system reviewed and no additional complaints, except as documented, Denies back pain - Integumentary/Breasts Skin/Breast: Reports no additional skin complaints, Denies bleeding lesions - Neurologic Reports system reviewed and no additional complaints, except as documented - Psychiatric Reports system reviewed and no additional complaints, except as documented, Reports behavioral changes, Denies anxiety - Endocrine Reports no additional endocrine complaints, Denies excessive sweating - Hematologic/Lymphatic Reports system reviewed and no additional complaints, except as documented, Denies easy bruising - Allergic/Immunologic Reports system reviewed and no additional complaints, except as documented, Denies GI upset with certain foods Oncology Screenings - ECOG Performance Status ECOG Performance Status: 1 [facility] Medical History: Medical History (Last Updated 10/14/21 @ 15:05 by NELI Buckley) Asthma Behavior disorder Cataract COPD (chronic obstructive pulmonary disease) Dementia Diabetes Dysphagia Emphysema lung ETOH abuse Gastroenteritis Hernia Hyperlipemia 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 Functional capacity: independent ambulation Patient : No Social History: Social History (Last Updated 10/14/21 @ 14:57 by NELI Buckley) Living Situation History: Housing: Snf Tobacco History: Patient Tobacco Use Status: Tobacco use Unknown Occupation Assessmet: service: No Current occupational status: disabled Home Medications and Allergies Current Medications: Current Medications Acetaminophen (Acetaminophen 325 Mg Tablet) 650 mg PO Q6H PRN PRN Reason: Pain, Mild (Pain Scale 1-3) Albuterol/Ipratropium (Albuterol/Iprat 2.5/0.5mg 3 Ml Ampul.Neb) 3 ml INHALE Q4H PRN PRN Reason: Shortness of Breath Dextrose (Dextrose 50 % 25 Gm/50 Ml Syringe) 25 gm IVPUSH Q15M PRN; Protocol PRN Reason: per Hypoglycemia Standing Ord. Divalproex Sodium (Divalproex Sodium Sprinkles 125 Mg ) 375 mg PO TID JAMEY Docusate Sodium (Docusate Sodium 100 Mg Capsule) 200 mg PO DAILY [facility] Fenofibrate (Fenofibrate 160 Mg Tablet) 160 mg PO DAILY [facility] Glucose (Glucose Gel 15 Gm Gel..Gram.) 15 gm PO Q15M PRN; Protocol PRN Reason: per Hypoglycemia Standing Ord. Heparin Sodium (Porcine) (Heparin Sodium,Porcine 5,000 Unit/Ml Vial) 5,000 unit SUBCUT Q12H [facility] Last Admin: 10/14/21 15:57 Dose: 5,000 unit Documented by: Piperacillin Sod/Tazobactam (Sod 3.375 gm/ Sodium Chloride) 50 mls @ 100 mls/hr IV Q6H [facility] Last Infusion: 10/14/21 18:26 Dose: Infused Documented by: Lactated Ringer's (Lr) 1,000 mls @ 80 mls/hr IVCONT .[id number] [facility] Last Admin: 10/14/21 16:21 Dose: 80 mls/hr Documented by: Insulin Human Lispro (Insulin Lispro 100 Unit/Ml 3 Ml Vial) 0 unit SUBCUT QIDACHS [facility]; Protocol Last Admin: 10/14/21 17:25 Dose: Not Given Documented by: Lactulose (Lactulose 20 Gm/30 Ml Solution) 20 gm PO TID [facility] Ondansetron HCl (Ondansetron Hcl 4 Mg/2 Ml Vial) 4 mg IVPUSH Q8H PRN PRN Reason: Nausea and Vomiting Last Admin: 10/14/21 15:57 Dose: 4 mg Documented by: Risperidone (Risperidone 1 Mg Tablet) 1 mg PO BEDTIME [facility] Senna (Sennosides 8.6 Mg Tablet) 8.6 mg PO BEDTIME PRN PRN Reason: Constipation Sodium Chloride (0.9 % Sodium Chloride Flush 3 Ml Syringe) 3 ml IVFLUSH QSHIFT [facility] Last Admin: 10/14/21 15:59 Dose: Not Given Documented by: Vitamin D (Cholecalciferol (Vitamin D3) 10 Mcg Tablet) 10 mcg PO DAILY [facility] Home Medications Medication Instructions Recorded Confirmed Type divalproex 125 mg capsule,delayed 3 cap PO TID 07/28/21 10/14/21 History release sprinkle fenofibrate nanocrystallized 145 1 tab PO DAILY 07/28/21 10/14/21 History mg tablet lactulose 10 gram/15 mL oral 30 ml PO TID 07/28/21 10/14/21 History solution risperidone 1 mg tablet 1 tab PO BEDTIME 07/28/21 10/14/21 History acetaminophen 325 mg tablet 650 mg PO Q4H PRN 07/29/21 10/14/21 History cholecalciferol (vitamin D3) 10 10 mcg PO DAILY 07/29/21 10/14/21 History mcg (400 unit) capsule (Vitamin D3) docusate sodium 100 mg capsule 200 mg PO DAILY 07/29/21 10/14/21 History sennosides 8.6 mg tablet (senna) 8.6 mg PO BEDTIME PRN 07/29/21 10/14/21 History Allergies Allergy/AdvReac Type Severity Reaction Status Date / Time No Known Allergies Allergy Verified 07/18/20 20:20 [No Known Allergies*] Physical Exam Vital signs: Vital Signs Temp 97.7 F 10/14/21 15:20 Pulse 89 10/14/21 15:20 Resp 16 10/14/21 15:20 BP 118/46 L 10/14/21 15:20 Pulse Ox 92 10/14/21 15:20 Intake & Output 10/13/21 10/14/21 10/14/21 18:59 06:59 18:59 Intake Total 450.25 / 450.25 Balance 450.25 / 450.25 Intake: Intake, IV Amount 450.25 / 450.25 Albumin Human 25 % 50 ml @ 100 50 / 50 mls/hr IV ONCE ONE Rx#: [id number] Azithromycin 500 mg In 0.9 % 250 / 250 Sodium Chloride 250 ml @ 125 mls/hr IV ONCE ONE Rx#: [id number] Piperacillin Sodium/Tazobactam 50 / 50 3.375 gm In 0.9 % Sodium Chloride 50 ml @ 100 mls/hr IV Q6H [facility] Rx#:[id number] Promethazine HCL 6.25 mg In 0.9 50.25 / 50.25 % Sodium Chloride 50 ml @ 201 mls/hr IV ONCE ONE Rx#: [id number] cefTRIAXone sodium 1 gm In 0.9 50 / 50 % Sodium Chloride 50 ml @ 100 mls/hr IV ONCE ONE Rx#: [id number] Other: Weight 89.9 kg Weight 89.9 kg - Constitutional Present: mild distress - Routine HEENT Exam Head: Present: normal inspection ENT: Present: mucous membranes moist - Routine Neck Exam Present: supple. Absent: lymphadenopathy - Routine Respiratory Exam Present: decreased breath sounds - Routine Cardiovascular Exam Cardiovascular: Present: RRR, S1, S2 - Routine Abdominal Exam Present: nontender. Absent: organomegaly Hem/Onc Consult Result - Labs CBC & Chem 7: 10/14/21 10:45 10/15/21 08:49 Labs: Short CBC 10/14/21 Range/Units 10:45 WBC 7.3 (4.8-10.8) X10*3/uL Hgb 10.7 L (14.0-18.0) g/dl Hct 35.0 L (42.0-52.0) % Plt Count 339 (160-400) X10*3/uL BMP 10/14/21 10:45 Sodium 144 Potassium 3.9 Chloride 103 Carbon Dioxide 32 H BUN 13 Creatinine 0.72 Calcium 10.7 H D Liver Function 10/14/21 Range/Units 10:45 Total Bilirubin 0.5 (0.0-1.0) mg/dL Direct Bilirubin 0.2 (0.0-0.5) mg/dL AST 11 (5-37) U/L ALT < 6 (0-40) U/L Alkaline Phosphatase 41 (39-117) U/L Albumin 3.4 L (3.5-5.0) g/dL Assessment and Plan Patient Active problem list reviewed?: Yes (1) 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 Status: Acute Assessment and plan: This is a pleasant 71-year-old gentleman with an element of dementia. He presented with generalized weakness and pulmonary symptoms. CT scan of the chest from today revealed: Large mass lesion in the lower esophagus with epicenter in the region of the distal esophagus however this is now inseparable from the directly adjacent consolidated left lower lobe. The mass does appear to be increased in size from the 07/28/2021 study although the margins are somewhat difficult to define. There is obstructive changes to the esophagus proximal to the mass. There is worsened consolidation/airspace disease in the left lung compared to the prior studies as well. 07/[address] scan of the abdomen pelvis which revealed: Previously visualized left lower lobe mass adjacent to the thoracic aorta has increased in size. This could be enlarged lymph node or a parenchymal mass. Previously visualized diffuse mural thickening involving esophagus is again visualized with loss of esophageal lumen at this time. This could be a primary esophageal or a primary left lower lobe lung mass. Recommend endoscopy, ultrasound-guided pleural tap or CT-guided biopsy for cytology. Left CP angle 1 cm nodule seen previously has been mass Y left lower lobe atelectasis and [id number] left pleural effusion. Left upper lobe Whirled appearance likely round atelectasis is stable. There is a right basilar compressive atelectasis. Stable 1 cm right middle lobe pulmonary nodule Subcarinal lymph node has increased in size Colonic diverticulosis with mild constipation. No obstruction. No abnormal lymph nodes seen. No acute intracranial process seen. Age-related cerebral volume loss with chronic small vessel ischemic changes. Patient does have a primary malignancy however it is unclear if this is arising in the softness versus lungs/mediastinum. PLAN: Will review images with IR to see what would be the best route for obtaining tissue diagnosis. Choices include: 1. Upper endoscopy. 2. CT scan-guided FNA of the mass. 3. Thoracentesis with cytology. Will discuss it with IR and GI is consultant and formulate a plan. Patient has been kept NPO for now. IV antibiotics will be continued for the postobstructive pneumonia. Discussed with hospitalist. Thank you, Cc: Addendum: After discussion with Dr. Silva, who knows the patient for almost 15 years, it appears that his wish is not to pursue aggressive interventions, but focus on palliative care. The plan is to proceed with upper endoscopy with stenting, if feasible, for comfort. - Time Spent With Patient Time Spent with Patient (in minutes): 30
[2021-10-14 22:06] VITALS: BP 112/47; PULSE 73; RESP 19; O2SAT 90
[2021-10-14 22:13] LABS: Glucose, Whole Blood 81 mg/dL (60-115)
[2021-10-14] MEDS: Dextrose 5 % and Lactated Ring 1,000 ML 50 ML IVCONT (23:19)
[2021-10-15 00:20] VITALS: BP 117/54; PULSE 78; RESP 20; O2SAT 94
[2021-10-15 01:57] VITALS: BP 118/62; PULSE 65; RESP 15; O2SAT 95
[2021-10-15 03:00] LABS: Glucose, Whole Blood 95 mg/dL (60-115)
[2021-10-15 04:16] VITALS: BP 110/50; PULSE 64; RESP 12; O2SAT 96
[2021-10-15] MEDS: Piperacillin Sodium/Tazobactam 3.375 GM in 0.9 % Sodium Chloride 50 ML IV ×2 (04:54→10:31)
[2021-10-15] MEDS: Heparin Sodium,Porcine 5,000 UNIT/ML VIAL 5000 UNIT SUBCUT (05:13)
--- NOTE | 2021-10-15 05:16 | PC.NURSE ---
Obtained care from EDUARDO Guadalupe at 3:15am, pt was incontinent, brief and pants removed. [place] care completed. medicated pt Mar. Pt reposition on his left side for comfort. Will continue to monitor. No sign of distress at this time.
[2021-10-15 07:09] LABS: Glucose, Whole Blood 96 mg/dL (60-115)
--- NOTE | 2021-10-15 07:09 | PM.GICN ---
History of Present Illness Data of Consult Service Date: 10/15/21 Requesting physician: Mason Barron Primary Care Provider: [facility] Reason for consult: esophgeal mass 71 year old male with history of dementia, COPD, emphysema, coronary artery disease, aspiration pneumonia and left lung masswho I am seeing for assessment for esophgeal obstruction. Limited history from patient, disorientated, and one- two word answers Sent to hospital due to concern for CXR with pneumonia and pleural effusion. he denies any symptoms and wants to eat. CT imaging with large lower esophagus mass, inseparable from left lower lobe of lung. obstructive changes to esophagus proximal to mass, worse consolidation. Review of Systems Review of Systems: Yes Unobtainable due to mental status PMFSH Past Medical History Medical History (Updated 10/14/21 @ 18:58 by Otoniel Cutler MD) Asthma Behavior disorder Cataract COPD (chronic obstructive pulmonary disease) Dementia Diabetes Dysphagia Emphysema lung ETOH abuse Gastroenteritis Hernia Hyperlipemia 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 Functional capacity: independent ambulation Family History Pertinent family history: reviewed with patient but he is uable to provide any family history Social History Social History (Updated 10/14/21 @ 14:57 by NELI Buckley) Housing: Residential Alcohol intake: former Patient Tobacco Use Status: Tobacco use Unknown service: No Current occupational status: disabled Meds Allergies Allergy/AdvReac Type Severity Reaction Status Date / Time No Known Allergies Allergy Verified 07/18/20 20:20 [No Known Allergies*] Active Medications: Current Medications Acetaminophen (Acetaminophen 325 Mg Tablet) 650 mg PO Q6H PRN PRN Reason: Pain, Mild (Pain Scale 1-3) Albuterol/Ipratropium (Albuterol/Iprat 2.5/0.5mg 3 Ml Ampul.Neb) 3 ml INHALE Q4H PRN PRN Reason: Shortness of Breath Dextrose (Dextrose 50 % 25 Gm/50 Ml Syringe) 25 gm IVPUSH Q15M PRN; Protocol PRN Reason: per Hypoglycemia Standing Ord. Docusate Sodium (Docusate Sodium 100 Mg Capsule) 200 mg PO DAILY [facility] Fenofibrate (Fenofibrate 160 Mg Tablet) 160 mg PO DAILY JAMEY Glucose (Glucose Gel 15 Gm Gel..Gram.) 15 gm PO Q15M PRN; Protocol PRN Reason: per Hypoglycemia Standing Ord. Heparin Sodium (Porcine) (Heparin Sodium,Porcine 5,000 Unit/Ml Vial) 5,000 unit SUBCUT Q12H [facility] Last Admin: 10/15/21 05:13 Dose: 5,000 unit Documented by: Piperacillin Sod/Tazobactam (Sod 3.375 gm/ Sodium Chloride) 50 mls @ 100 mls/hr IV Q6H [facility] Last Infusion: 10/15/21 07:05 Dose: Infused Documented by: Dextrose/Lactated Ringer's ([email or web address]) 1,000 mls @ 50 mls/hr IVCONT .Q20H [facility] Last Admin: 10/14/21 23:19 Dose: 50 mls/hr Documented by: Valproic Acid 280 mg/ Dextrose 52.8 mls @ 52.8 mls/hr IV Q6H [facility] Last Infusion: 10/15/21 00:28 Dose: Infused Documented by: Insulin Human Lispro (Insulin Lispro 100 Unit/Ml 3 Ml Vial) 0 unit SUBCUT QIDACHS [facility]; Protocol Last Admin: 10/14/21 22:40 Dose: Not Given Documented by: Lactulose (Lactulose 20 Gm/30 Ml Solution) 20 gm PO TID [facility] Last Admin: 10/14/21 22:40 Dose: Not Given Documented by: Ondansetron HCl (Ondansetron Hcl 4 Mg/2 Ml Vial) 4 mg IVPUSH Q8H PRN PRN Reason: Nausea and Vomiting Last Admin: 10/14/21 15:57 Dose: 4 mg Documented by: Risperidone (Risperidone 1 Mg Tablet) 1 mg PO BEDTIME [facility] Last Admin: 10/14/21 22:40 Dose: Not Given Documented by: Senna (Sennosides 8.6 Mg Tablet) 8.6 mg PO BEDTIME PRN PRN Reason: Constipation Sodium Chloride (0.9 % Sodium Chloride Flush 3 Ml Syringe) 3 ml IVFLUSH QSHIFT [facility] Last Admin: 10/14/21 23:23 Dose: Not Given Documented by: Vitamin D (Cholecalciferol (Vitamin D3) 10 Mcg Tablet) 10 mcg PO DAILY [facility] Home Medications Medication Instructions Recorded Confirmed Last Taken Type divalproex 125 mg capsule,delayed 3 cap PO TID 07/28/21 10/14/21 07/28/21 History release sprinkle fenofibrate nanocrystallized 145 1 tab PO DAILY 07/28/21 10/14/21 07/28/21 History mg tablet lactulose 10 gram/15 mL oral 30 ml PO TID 07/28/21 10/14/21 07/28/21 History solution risperidone 1 mg tablet 1 tab PO BEDTIME 07/28/21 10/14/21 07/27/21 History acetaminophen 325 mg tablet 650 mg PO Q4H PRN 07/29/21 10/14/21 Unknown History cholecalciferol (vitamin D3) 10 10 mcg PO DAILY 07/29/21 10/14/21 Unknown History mcg (400 unit) capsule (Vitamin D3) docusate sodium 100 mg capsule 200 mg PO DAILY 07/29/21 10/14/21 Unknown History sennosides 8.6 mg tablet (senna) 8.6 mg PO BEDTIME PRN 07/29/21 10/14/21 Unknown History Physical Exam Vital Signs: Vital Signs: Last Vital Signs Temp 99.1 F 10/14/21 18:53 Pulse 64 10/15/21 04:16 Resp 12 10/15/21 04:16 BP 110/50 L 10/15/21 04:16 Pulse Ox 96 10/15/21 04:16 BMI result Body Mass Index 24.7 Const General:?cooperative and no acute distress Resp Effort & Inspection:?normal respiratory effort Auscultation:?crackles, rales and other (dimineshed left base) Cardio Rate:?regular rate Rhythm:?regular rhythm Heart sounds:?S1 normal heart sound present, S2 normal heart sound present and no murmurs GI Inspection:?Yes normal to inspection Palpation (GI):?Soft to palpation and no guarding Auscultation:?normal bowel sounds Extrem General:?Yes normal to inspection Const: Other: Appearance: Alert. no acute distress Eyes: Pupils equal, round and reactive to light. ENT: Pharynx normal. Neck: Normal inspection. Neck supple. No lymph nodes noted. No crepitus CVS: Normal heart rate and rhythm. Pulses normal. Normal S1 and S2 Respiratory: No respiratory distress. lung sounds clear, no wheezing, no crackles Abdomen: Soft and nontender. No rigidity. No distention. Skin: Skin warm and dry. Normal skin color. Normal skin turgor. Extremities: trace pitting edema in both lower extremities Neuro:No motor deficit. No sensory deficit. Moving all extermities. No slurred speech. General: cooperative, comfortable, no acute distress, alert and awake Nutritional Appearance: average body habitus Resp: Other: decreased inspiratory effort left side rhonchi/course breath sounds, dim at base; no wheezing; right lung field fairly clear Effort & Inspection: normal respiratory effort Cardio: Rate: regular rate Heart sounds: S1 normal heart sound present and S2 normal heart sound present GI: Inspection: No distended Palpation (GI): Soft to palpation and nontender Extrem: Other: no significant leg edema Psych: Appearance: disheveled Affect: Blunted affect present Insight: Limited insight present (Psych) Judgement: Limited judgement present (Psych) Results Labs CBC & Chem 7: 10/14/21 10:45 10/15/21 08:49 Labs: Short CBC 10/14/21 Range/Units 10:45 WBC 7.3 (4.8-10.8) X10*3/uL Hgb 10.7 L (14.0-18.0) g/dl Hct 35.0 L (42.0-52.0) % Plt Count 339 (160-400) X10*3/uL BMP 10/14/21 10:45 Sodium 144 Potassium 3.9 Chloride 103 Carbon Dioxide 32 H BUN 13 Creatinine 0.72 Calcium 10.7 H D Liver Function 10/14/21 Range/Units 10:45 Total Bilirubin 0.5 (0.0-1.0) mg/dL Direct Bilirubin 0.2 (0.0-0.5) mg/dL AST 11 (5-37) U/L ALT < 6 (0-40) U/L Alkaline Phosphatase 41 (39-117) U/L Albumin 3.4 L (3.5-5.0) g/dL Imaging CT scan - chest: Attestation: I personally reviewed and interpreted this imaging study as follows: My impression: left pleural effusion and conolidation, mass abutting esophagus unable to delineate the margins Assessment and Plan (1) 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: Status: Acute (2) Pneumonia: Status: Acute Plan 1/ Lung mass with what appears to be extension into the esophagus wall and lumen. Esophagus hard to identify on personal review of CT imaging, also left lung with pleural effeusion and consolidation. PLAN: 1/ patient would be v high risk for EGD, he effectively only has one lung functioning right now. Additionally I am not sure stenting would help if the tumour has fistualized and eroded into the esophgeal wall. He would need at least a partially covered stent or fully covered stent which has higher risk of slippage. WOuld discuss goals of care with guardian and consider palliative care before any risky interventions. Procedures Date of Service Date of Service: 10/15/21
[2021-10-15 09:08] LABS: Anion Gap 14 (12-20); Blood Urea Nitrogen 12 mg/dL (9-16); Calcium 10.1 mg/dL (8.4-10.2); Carbon Dioxide 29 mmol/L (22-29); Chloride 106 mmol/L (96-108); Estimated Glomerular Filt Rate > 60; Glucose Random 95 mg/dL (60-115); Lactate Dehydrogenase 403 U/L (118-273); Potassium 3.9 mmol/L (3.3-5.1); Sodium 145 mmol/L (135-145); Total Protein 6.2 g/dL (6.5-8.0)
--- NOTE | 2021-10-15 10:37 | PM.DS ---
DS: Providers Provider Date of Service: 10/15/21 Date of admission: 10/14/21 14:23 Date of discharge: 10/15/21 Primary care physician: [facility] Consults: 10/14/21 14:34 Consult to Hematology / Oncology Routine Consulting Provider: Milly Maravilla Reason for consultation: left lung mass Has provider been notified: No 10/14/21 15:52 Consult to Gastroenterology Routine Consulting Provider: Jim Villalobos Reason for consultation: lung/esophageal mass with ?esophageal obstruction; vomiting Has provider been notified: No DS: Diagnosis Discharge Diagnosis (1) 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: Status: Acute DS: Summary Hospital Course Hospital Course: 71yoM well known to me from [facility] presentss with worsening outpt. CXR along with O2 requirement. Had been following pulmonary nodule by CT. Last scan 07/22 ; worsening with question of esophageal mass. Recommendations for work including PET scan/GI eval discussed with [place]. Given Richardson's history of non-compliance and the likelyhood that he would not cooperate with studies and possible treatments, the decison was made for conservative management. Recent CT Chest demonstrated mass invasive to essophagus. Discussed with GI; not candidate for esophageal stenting. At this time, Richardson is comfortable...no respiratory distress. He will be transfered back to [facility] for care. Will discuss changingh code status with guardian Time Spent with Patient Time attestation: Total time spent providing and/or coordinating discharge services: Discharge coordination time: Greater than 30 minutes Quality: Stroke Does the patient have a stroke diagnosis?: No Physical Exam Vital Signs: Vital Signs: Last Vital Signs Temp 99.1 F 10/14/21 18:53 Pulse 64 10/15/21 04:16 Resp 12 10/15/21 04:16 BP 110/50 L 10/15/21 04:16 Pulse Ox 96 10/15/21 04:16 BMI result Body Mass Index 24.7 Const: General: cooperative and no acute distress Resp: Effort & Inspection: normal respiratory effort Auscultation: crackles, rales and other (dimineshed left base) Cardio: Rate: regular rate Rhythm: regular rhythm Heart sounds: S1 normal heart sound present, S2 normal heart sound present and no murmurs GI: Inspection: Yes normal to inspection Palpation (GI): Soft to palpation and no guarding Auscultation: normal bowel sounds Extrem: General: Yes normal to inspection DS: Data Data Completed and Pending Pending studies at discharge: Pending at discharge 10/15/21 00:01 Cytology [PTH] Routine Labs on day of discharge: Laboratory Results - last 24 hr 10/14/21 10/14/21 10/14/21 10:45 10:45 10:45 WBC 7.3 RBC 4.21 L Hgb 10.7 L Hct 35.0 L MCV 83.1 MCH 25.4 L MCHC 30.6 L RDW 15.2 Plt Count 339 MPV 9.4 Immature Gran % (Auto) 0.4 Neut % (Auto) 70.4 Lymph % (Auto) 15.0 L Calvert % (Auto) 11.2 H Eos % (Auto) 2.5 Baso % (Auto) 0.5 Lymph # (Auto) 1.1 L Calvert # (Auto) 0.8 Eos # (Auto) 0.2 Baso # (Auto) 0.0 Abs Immat Gran (auto) 0.03 Absolute Neuts (auto) 5.1 Absolute Nucleated RBC 0.000 Nucleated RBC % (auto) 0.0 PT 14.7 H INR 1.3 H Sodium 144 Potassium 3.9 Chloride 103 Carbon Dioxide 32 H Anion Gap 13 BUN 13 Creatinine 0.72 Estim Creat Clear Calc 114.1 Estimated GFR > 60 POC Glucose Random Glucose 105 Lactic Acid Calcium 10.7 H D Total Bilirubin 0.5 Direct Bilirubin 0.2 AST 11 ALT < 6 Alkaline Phosphatase 41 Lactate Dehydrogenase B-Natriuretic Peptide Total Protein 6.2 L Albumin 3.4 L Procalcitonin COVID-19 ([facility]) COVID-19 Clin Com 10/14/21 10/14/21 10/14/21 10:45 10:45 10:45 WBC RBC Hgb Hct MCV MCH MCHC RDW Plt Count MPV Immature Gran % (Auto) Neut % (Auto) Lymph % (Auto) Calvert % (Auto) Eos % (Auto) Baso % (Auto) Lymph # (Auto) Calvert # (Auto) Eos # (Auto) Baso # (Auto) Abs Immat Gran (auto) Absolute Neuts (auto) Absolute Nucleated RBC Nucleated RBC % (auto) PT INR Sodium Potassium Chloride Carbon Dioxide Anion Gap BUN Creatinine Estim Creat Clear Calc Estimated GFR POC Glucose Random Glucose Lactic Acid 1.7 Calcium Total Bilirubin Direct Bilirubin AST ALT Alkaline Phosphatase Lactate Dehydrogenase B-Natriuretic Peptide 24 Total Protein Albumin Procalcitonin 0.08 COVID-19 ([facility]) COVID-19 [employer] Com 10/14/21 10/14/21 10/15/21 10:58 22:04 02:55 WBC RBC Hgb Hct MCV MCH MCHC RDW Plt Count MPV Immature Gran % (Auto) Neut % (Auto) Lymph % (Auto) Calvert % (Auto) Eos % (Auto) Baso % (Auto) Lymph # (Auto) Calvert # (Auto) Eos # (Auto) Baso # (Auto) Abs Immat Gran (auto) Absolute Neuts (auto) Absolute Nucleated RBC Nucleated RBC % (auto) PT INR Sodium Potassium Chloride Carbon Dioxide Anion Gap BUN Creatinine Estim Creat Clear Calc Estimated GFR POC Glucose 81 95 Random Glucose Lactic Acid Calcium Total Bilirubin Direct Bilirubin AST ALT Alkaline Phosphatase Lactate Dehydrogenase B-Natriuretic Peptide Total Protein Albumin Procalcitonin COVID-19 ([facility]) Negative COVID-19 [email or web address] See Note 10/15/21 10/15/21 07:04 08:49 WBC RBC Hgb Hct MCV MCH MCHC RDW Plt Count MPV Immature Gran % (Auto) Neut % (Auto) Lymph % (Auto) Calvert % (Auto) Eos % (Auto) Baso % (Auto) Lymph # (Auto) Calvert # (Auto) Eos # (Auto) Baso # (Auto) Abs Immat Gran (auto) Absolute Neuts (auto) Absolute Nucleated RBC Nucleated RBC % (auto) PT INR Sodium 145 Potassium 3.9 Chloride 106 Carbon Dioxide 29 Anion Gap 14 BUN 12 Creatinine 0.74 Estim Creat Clear Calc 111.0 Estimated GFR > 60 POC Glucose 96 Random Glucose 95 Lactic Acid Calcium 10.1 Total Bilirubin Direct Bilirubin AST ALT Alkaline Phosphatase Lactate Dehydrogenase 403 H B-Natriuretic Peptide Total Protein 6.2 L Albumin Procalcitonin COVID-19 ([facility]) COVID-19 Clin Com Discharge Plan Discharge Patient Disposition: Xfer Inpatient Rehab Fac Discharge Diagnosis: Medistinal mass Referrals: [facility] [Primary Care Provider] - 1 Week Discharge Medications: Continued divalproex 125 mg capsule, delayed rel sprinkle 3 cap PO TID 0RF risperidone 1 mg tablet 1 tab PO BEDTIME 0RF lactulose 10 gram/15 mL solution 30 ml PO TID 0RF fenofibrate nanocrystallized 145 mg tablet 1 tab PO DAILY 0RF sennosides [senna] 8.6 mg Tablet 8.6 mg PO BEDTIME PRN (Reason: Constipation) 0RF acetaminophen 325 mg Tablet 650 mg PO Q4H PRN (Reason: Fever Or Pain) 0RF docusate sodium 100 mg Capsule 200 mg PO DAILY 0RF cholecalciferol (vitamin D3) [Vitamin D3] 10 mcg (400 unit) Capsule 10 mcg PO DAILY 0RF Discharge Orders: Discharge Order (Routine); Ordered 10/15/21 Ordered By: Praful Silva Diet: advance to usual diet Activity on Discharge: As tolerated Stand Alone Forms: Patient Portal Discharge page Care Plan Goals: Maintain highest level of functiomn Health Concerns: Quality of life Plan of Treatment: as per [facility] Assessment: see D/C summary
--- NOTE | 2021-10-15 11:47 | MHC.CM.PN ---
Addendum entered by Alma Oliva 10/15/21 12:00: MESSAGE LEFT FOR PTS GUARDIAN. PTS OBSERVATION NOTICE WAS DELIVERED AND A COPY WAS EMAILED TO HIM AT [email or web address], PER HIS PREVIOUSLY STATED PREFERENCE. Original Note: PT IS A LTC RESIDENT OF [facility] CM WILL CONTACT PTS LEGAL GUARDIAN, BLAKE LUONG ([phone]) TO DELIVER PTS MEDICARE RIGHTS AND INFORM HIM OF PENDING DC. PT WILL DC BACK TO [facility] TODAY AT 1300 HOURS VIA [facility]
== END 2021-10-15 11:15 ==
LOC: HO.ED 12:43 → HO.EDOVER 14:45
PROVIDERS: Internal Medicine; Admitting Provider Physician Assistant Medical; Emergency Provider Emergency Medicine; Visit Provider Hospitalist
DX: J90 Pleural effusion, not elsewhere classified (principal); J43.9 Emphysema, unspecified; J69.0 Pneumonitis due to inhalation of food and vomit; J15.9 Unspecified bacterial pneumonia; U09.9 Post COVID-19 condition, unspecified; J91.8 Pleural effusion in other conditions classified elsewhere; R91.8 Other nonspecific abnormal finding of lung field; E11.9 Type 2 diabetes mellitus without complications; E78.5 Hyperlipidemia, unspecified; E83.52 Hypercalcemia; I25.10 Atherosclerotic heart disease of native coronary artery without angina pectoris; F03.91 Unspecified dementia, unspecified severity, with behavioral disturbance; K22.2 Esophageal obstruction; Z20.822 Contact with and (suspected) exposure to COVID-19; Z91.81 History of falling; Z79.4 Long term (current) use of insulin; Z79.899 Other long term (current) drug therapy
CPT/HCPCS: 36415; 71045; 71260; 80048; 80076; 82947; 83605; 83615; 83880; 84145; 84155; 85025; 85610; 87040; 87635; 96365; 96367; 99218; 99285; J0456; J0696; J2405; J2543; J2550; P9047; Q9967

== ENCOUNTER 2021-11-22 22:06 | Emergency (ER) | payer MEDICARE, MEDICAID, SELFPAY ==
[2021-11-22 22:05] VITALS: BP 95/63; PULSE 64; RESP 10; BMI 29.2
--- NOTE | 2021-11-22 22:25 | PC.NURSE ---
Addendum entered by Ti Munoz RN 11/22/21 22:29: patient intubated prior to arrival by EMS Original Note: patient arrives to ED in sinus nancie rythm. patient intubated on arrival, placed on ventilator. patient begins to nancie down on arrival, given atropine @ 2211. patient continues to nancie down and becomes asystolic @ 2213. TOD @2213.
--- NOTE | 2021-11-22 23:40 | ED.CPR ---
HPI - CPR General Chief Complaint: Cardiac Arrest/CPR Stated Complaint: carrdiac arrest Time Seen by Provider: 11/22/21 23:39 Source: EMS Mode of arrival: EMS Limitations: other (s/p cardiac arrest ) History of Present Illness HPI narrative: Patient comes to emergency room via EMS from [facility] Earlier today, patient was in cardiac arrest. EMS CPR for 15 minutes, use 3 rounds of epinephrine, 1 round of calcium gluconate and wanted fibrillation. Patient regain ROSC prior to arrival to emergency room. Patient came in intubated with a 7.5 ET tube. Patient's pupils were dilated and fixed, no reflexes present. It is known the patient has history of lung cancer. Shortly after arrival, within the 1st couple of minutes, patient's heart rate dropped to the low 30s, epinephrine was given, patient lost pulse and went into asystole. Related Data Home Medications Medication Instructions Recorded Confirmed divalproex 125 mg capsule,delayed 3 cap PO TID 07/28/21 10/14/21 release sprinkle fenofibrate nanocrystallized 145 1 tab PO DAILY 07/28/21 10/14/21 mg tablet lactulose 10 gram/15 mL oral 30 ml PO TID 07/28/21 10/14/21 solution risperidone 1 mg tablet 1 tab PO BEDTIME 07/28/21 10/14/21 acetaminophen 325 mg tablet 650 mg PO Q4H PRN 07/29/21 10/14/21 cholecalciferol (vitamin D3) 10 10 mcg PO DAILY 07/29/21 10/14/21 mcg (400 unit) capsule (Vitamin D3) docusate sodium 100 mg capsule 200 mg PO DAILY 07/29/21 10/14/21 sennosides 8.6 mg tablet (senna) 8.6 mg PO BEDTIME PRN 07/29/21 10/14/21 Allergies Allergy/AdvReac Type Severity Reaction Status Date / Time No Known Allergies Allergy Verified 07/18/20 20:20 [No Known Allergies*] Review of Systems Review of Systems: Yes Unobtainable due to mental condition [facility] Past Medical History Medical History Asthma Behavior disorder Cataract COPD (chronic obstructive pulmonary disease) Dementia Diabetes Dysphagia Emphysema lung ETOH abuse Gastroenteritis Hernia Hyperlipemia 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 Social History Social History (Updated 10/14/21 @ 14:57 by NELI Buckley) Housing: Snf Alcohol intake: former Patient Tobacco Use Status: Tobacco use Unknown Advance Directives: No service: No Current occupational status: disabled Physical Exam Vital Signs: Vital Signs: Last Vital Signs Pulse 64 11/22/21 22:05 Resp 10 L 11/22/21 22:05 BP 95/63 11/22/21 22:05 BMI result Body Mass Index 29.2 Const: Other: Appearance: Intubated Eyes: Fixed Pupils 5 mm, nonreactive to light, ENT: ET tube in place, moderate amount of blood in the oropharynx Neck: Normal inspection. CVS: Pulses initially faint, then no pulses/asystole Respiratory: Being ventilated with a bag-valve mask Abdomen: Soft , seems nondistended Skin: Pale, cool to touch Extremities: No spontaneous movement of extremities Neuro: Pupils fixed and dilated, no reflexes present Course Course Course Narrative: Time of was called at 22:13 I discussed the above-mentioned with Dr. Silva. Patient does not have any family. The immediate cause of is cardiac arrest. Is possible that patient may have developed a pulmonary embolism due to his history of cancer Discharge Plan Discharge Clinical Impression: Cardiac arrest Patient Disposition: Prescriptions: No Action divalproex 125 mg capsule, delayed rel sprinkle 3 cap PO TID 0RF risperidone 1 mg tablet 1 tab PO BEDTIME 0RF lactulose 10 gram/15 mL solution 30 ml PO TID 0RF fenofibrate nanocrystallized 145 mg tablet 1 tab PO DAILY 0RF sennosides [senna] 8.6 mg Tablet 8.6 mg PO BEDTIME PRN (Reason: Constipation) 0RF acetaminophen 325 mg Tablet 650 mg PO Q4H PRN (Reason: Fever Or Pain) 0RF docusate sodium 100 mg Capsule 200 mg PO DAILY 0RF cholecalciferol (vitamin D3) [Vitamin D3] 10 mcg (400 unit) Capsule 10 mcg PO DAILY 0RF Interventions: Organ Donor Nursing Doc/Post Mortem care Last Done: 11/22/21 22:40 Discharge Date/Time: 11/22/21 23:56
== END 2021-11-22 23:56 | disposition expired ==
PROVIDERS: Emergency Provider Emergency Medicine; PCP Hospitalist
DX: I46.9 Cardiac arrest, cause unspecified (principal); E11.9 Type 2 diabetes mellitus without complications; E78.5 Hyperlipidemia, unspecified; J44.9 Chronic obstructive pulmonary disease, unspecified; F03.90 Unspecified dementia, unspecified severity, without behavioral disturbance, psychotic disturbance, mood disturbance, and anxiety; Z85.118 Personal history of other malignant neoplasm of bronchus and lung
CPT/HCPCS: 99283; J0461